=== PATIENT | male | born 1955 | race Caucasian/White ===

== ENCOUNTER → 2016-10-12 | Outpatient (CLI) | payer BC ==
[~2016-10-12] MED LIST: ASP81EC PO; ATO40T PO; CAR3125T PO; CLOP75TA28 PO; FURO40TA4 PO; LEVO25TA6 PO; OMEP20CA5 PO
== END | disposition home or self-care (01) ==
LOC: XYW 09:53
PROVIDERS: ATTEND Internal Medicine
DX: I50.9 Heart failure, unspecified (principal)
CPT/HCPCS: 93306

== ENCOUNTER → 2016-11-30 | Outpatient (CLI) | payer BC | END | disposition home or self-care (01) | LOC: XY 10:28 | PROVIDERS: ATTEND Internal Medicine Cardiovascular Disease | DX: Z13.6 Encounter for screening for cardiovascular disorders (principal) | CPT/HCPCS: 78452; 93017; A9500 ==

== ENCOUNTER → 2016-12-19 | Outpatient (CLI) | payer BC ==
[2016-12-19 13:48] LABS: Basophils # (auto) 0 uL; Basophils % (auto) 0.4 % (0.0-2.0); Eosinophils # (auto) 0.2 uL; Eosinophils % (auto) 2.7 % (0.0-7.0); Hemoglobin 15.8 g/dL (13.5-17.5); Lymphocytes # (auto) 2.2 uL; Mean Corpuscular Hemoglobin 31.7 pg (28.0-32.0); Mean Corpuscular Hgb Conc. 32.9 g/dL (32.0-36.0); Mean Corpuscular Volume 96.4 fL (80.0-100.0); Mean Platelet Volume 8.3 fL (7.4-10.4); Monocytes # (auto) 0.9 uL; Monocytes % (auto) 9.9 % (0.0-12.0); Neutrophils # (auto) 5.4 uL; Platelet Count (auto) 292 10^3/uL (140-450); Red Cell Distribution Width 13.8 % (11.6-16.0); White Blood Cell 8.7 10^3/uL (4.4-10.8)
[2016-12-19 14:05] LABS: INR 1.1 (0.9-1.15); Partial Thromboplastin Time 30.2 sec (22.64-33.71); Prothrombin Time 11.3 sec (9.37-12.3)
[2016-12-19 14:11] LABS: Albumin 3.7 g/dL (3.4-5.0); BUN/Creatinine Ratio 11.5; Calcium 8.4 mg/dL (8.5-10.1); Potassium 4.6 mmol/L (3.5-5.1)
[2016-12-19 14:14] LABS: Bilirubin, Total 1.1 mg/dL (0.2-1.0); Total Protein 7.5 g/dL (6.4-8.2)
== END | disposition home or self-care (01) ==
LOC: LAB 13:25
PROVIDERS: ATTEND Internal Medicine Cardiovascular Disease
DX: Z01.810 Encounter for preprocedural cardiovascular examination (principal); I25.10 Atherosclerotic heart disease of native coronary artery without angina pectoris
CPT/HCPCS: 36415; 80053; 85025; 85610; 85730

== ENCOUNTER 2016-12-20 11:11 | Inpatient (IN) | payer BC ==
[~2016-12-20] VITALS: Ht 180.3 cm; Wt 77.1 kg
[~2016-12-20 11:11] MED LIST changes: +IODIXANOL 320MG/ML 100ML BTL IV ONE; +LIDOCAINE 2%HCL (LOCAL ANESTH.) INJ 20ML MDV ONE; +PANTOPRAZOLE 40 MG TAB PO SCH
[2016-12-20] MEDS ORDERED: MIDAZOLAM HCL 1MG/1ML-2 ML VIAL ONE (13:07)
[2016-12-20] MEDS ORDERED: SODIUM CHL 0.9% 50 ML ONE (13:07)
[2016-12-20] MEDS ORDERED: fentaNYL CITRATE 100 MCG/2 ML VL ONE (13:07)
[2016-12-20] MEDS ORDERED: ANGIOMAX 250 MG VIAL IV ONE (13:07)
[2016-12-20] MEDS ORDERED: diphenhdrAMINE HCL 50 MG/1 ML VL ONE (13:45)
[2016-12-20] MEDS ORDERED: methylPREDNISolone SOD SUCC 125 MG/2 ML VL ONE (13:47)
[2016-12-20] MEDS ORDERED: IODIXANOL 320MG/ML 100ML BTL IV ONE (14:26)
[2016-12-20] MEDS ORDERED: HYDROmorphone HCL 2 MG/ML VL ONE (14:39)
[2016-12-20] MEDS ORDERED: SODIUM CHLORIDE 0.9% 1,000 ML IV SCH (14:52)
[2016-12-20] MEDS ORDERED: DEXTROSE (50%) 50ML SYRG IV PRN (15:00)
[2016-12-20] MEDS ORDERED: HYDROcodone-ACET 5/325MG TAB PO PRN (15:00)
[2016-12-20] MEDS ORDERED: MORPHINE SULF INJ 2 MG/ML SYRINGE 1ML IV PRN (15:00)
[2016-12-20] MEDS ORDERED: NITROGLYCERIN 0.4 MG SL TAB SL PRN ×2 (15:00)
[2016-12-20] MEDS ORDERED: ONDANSETRON HCL 4 MG/2 ML VIAL IV PRN (15:00)
[2016-12-20] MEDS ORDERED: LEVOTHYROXINE SODIUM 25 MCG TAB PO ONE (15:30)
[2016-12-20] MEDS ORDERED: CARVEDILOL 3.125 MG TAB PO ONE (15:30)
[2016-12-20] MEDS ORDERED: ASPirin-EC 81 mg tab PO ONE (15:30)
[2016-12-20] MEDS ORDERED: CLOPIDOGREL BISULFATE 75 MG TAB PO ONE (15:30)
[2016-12-20] MEDS ORDERED: FUROSEMIDE 40 MG TAB PO ONE (15:30)
[2016-12-20] MEDS: ACCU-CHEK COMFORT CURVE STRIP VI SCH ×2 (17:04→21:47)
[2016-12-20] MEDS: InsuLIN REG 1unit/0.01ml Soln (100units/ml) SC SCH (17:09)
[2016-12-20 18:41] VITALS: BP 135/78
[2016-12-20] MEDS ORDERED: HYDROcodone-ACET 10/325MG TAB PO PRN (21:15)
[2016-12-20] MEDS: CARVEDILOL 3.125 MG TAB PO SCH (21:47)
[2016-12-20 22:00] VITALS: BP 128/75
[2016-12-20] MEDS ORDERED: InsuLIN REG 1unit/0.01ml Soln (100units/ml) SC SCH (22:00)
[2016-12-20] MEDS ORDERED: PANTOPRAZOLE 40 MG TAB PO SCH (22:00)
[2016-12-20] MEDS ORDERED: ATORVASTATIN 20 MG TAB PO SCH (22:00)
[2016-12-20] MEDS: INSULIN DETEMIR(LEVEMIR) 1unit/0.01ml Soln (100units/ml) SC SCH (22:05)
[2016-12-21 05:30] VITALS: BP 106/68
[2016-12-21 06:48] LABS: Potassium 3.4 mmol/L (3.5-5.1)
[2016-12-21] MEDS: InsuLIN REG 1unit/0.01ml Soln (100units/ml) SC SCH (06:51)
[2016-12-21] MEDS: ACCU-CHEK COMFORT CURVE STRIP VI SCH (06:51)
[2016-12-21 07:00] LABS: BUN/Creatinine Ratio 18.6; Calcium 8.6 mg/dL (8.5-10.1)
[2016-12-21 08:15] LABS: Basophils # (auto) 0 uL; Basophils % (auto) 0.4 % (0.0-2.0); Eosinophils # (auto) 0.3 uL; Eosinophils % (auto) 2.9 % (0.0-7.0); Hemoglobin 14.5 g/dL (13.5-17.5); Lymphocytes # (auto) 3.2 uL; Lymphocytes % (auto) 30.4 % (10.0-50.0); Mean Corpuscular Hemoglobin 31.5 pg (28.0-32.0); Mean Corpuscular Hgb Conc. 32.9 g/dL (32.0-36.0); Mean Corpuscular Volume 95.7 fL (80.0-100.0); Mean Platelet Volume 8.7 fL (7.4-10.4); Monocytes # (auto) 1.2 uL; Monocytes % (auto) 11.8 % (0.0-12.0); Neutrophils # (auto) 5.7 uL; Neutrophils % (auto) 54.5 % (37.0-80.0); Platelet Count (auto) 271 10^3/uL (140-450); Red Cell Distribution Width 13.6 % (11.6-16.0); White Blood Cell 10.5 10^3/uL (4.4-10.8)
[2016-12-21 09:00] VITALS: BP 119/74
[2016-12-21] MEDS ORDERED: PATIENTS OWN MEDICATION (Atorvastatin Calcium (Lipitor) 1 TAB) PO SCH ×2 (10:00)
[2016-12-21] MEDS ORDERED: OMEPRAZOLE 20MG/10ML ORAL SUSP PO SCH (10:00)
[2016-12-21] MEDS ORDERED: LEVOTHYROXINE SODIUM 25 MCG TAB PO SCH (10:00)
[2016-12-21] MEDS ORDERED: FUROSEMIDE 40 MG TAB PO SCH (10:00)
[2016-12-21] MEDS ORDERED: CLOPIDOGREL BISULFATE 75 MG TAB PO SCH (10:00)
[2016-12-21] MEDS ORDERED: ASPirin-EC 81 mg tab PO SCH (10:00)
[2016-12-21] MEDS: INSULIN DETEMIR(LEVEMIR) 1unit/0.01ml Soln (100units/ml) SC SCH (10:00)
[2016-12-21] MEDS: CARVEDILOL 3.125 MG TAB PO SCH (11:07)
[2016-12-21 12:45] VITALS: BP 123/72
[2016-12-21] MEDS ORDERED: POTASSIUM CHL 10% (20 MEQ/15ML) ORAL SOLN PO ONE (13:15)
[2016-12-21 13:44] VITALS: BP 119/74
[2016-12-21 14:13] VITALS: BP 123/72
== END 2016-12-21 15:00 | disposition home or self-care (01) | DRG 251 ==
LOC: CATH 11:11 → EAST 11:12 → TELE-WESTW 18:08
PROVIDERS: ADMIT Internal Medicine Cardiovascular Disease; ATTEND Internal Medicine
PROC: 02703ZZ Dilation of Coronary Artery, One Artery, Percutaneous Approach (ICD-10-PCS; principal; 2016-12-20)
PROC: 4A023N7 Measurement of Cardiac Sampling and Pressure, Left Heart, Percutaneous Approach (ICD-10-PCS; 2016-12-20)
PROC: B2111ZZ Fluoroscopy of Multiple Coronary Arteries using Low Osmolar Contrast (ICD-10-PCS; 2016-12-20)
PROC: B41F1ZZ Fluoroscopy of Right Lower Extremity Arteries using Low Osmolar Contrast (ICD-10-PCS; 2016-12-20)
DX: T82.855A Stenosis of coronary artery stent, initial encounter (principal); E03.9 Hypothyroidism, unspecified; E87.6 Hypokalemia; E11.9 Type 2 diabetes mellitus without complications; I25.10 Atherosclerotic heart disease of native coronary artery without angina pectoris; Y83.1 Surgical operation with implant of artificial internal device as the cause of abnormal reaction of the patient, or of later complication, without mention of misadventure at the time of the procedure
CPT/HCPCS: 36415; 80048; 82962; 83036; 85025; 92920; 93458; J1815; J2250; Q9967

== ENCOUNTER 2017-04-28 08:13 | Day surgery (SDC) | payer BC ==
[2017-04-25 13:32] LABS: Urine RBC None Seen /hpf (0 - 3)
[2017-04-25 13:44] LABS: Urine Bilirubin Negative (Negative); Urine Blood Negative /uL (Negative); Urine Color Yellow (Yellow); Urine Ketone Negative (Negative); Urine Nitrite Negative (Negative); Urine Urobilinogen Normal (Negative)
[2017-04-25 13:46] LABS: Basophils # (auto) 0 uL; Basophils % (auto) 0.5 % (0.0-2.0); CONDITION Y; Eosinophils # (auto) 0.2 uL; Eosinophils % (auto) 2.6 % (0.0-7.0); Hematocrit 48.2 % (41.0-53.0); Lymphocytes # (auto) 2.5 uL; Lymphocytes % (auto) 30.8 % (10.0-50.0); Mean Corpuscular Hemoglobin 32.2 pg (28.0-32.0); Mean Corpuscular Hgb Conc. 33.3 g/dL (32.0-36.0); Mean Corpuscular Volume 96.5 fL (80.0-100.0); Mean Platelet Volume 8.6 fL (7.4-10.4); Monocytes # (auto) 1.1 uL; Monocytes % (auto) 13.2 % (0.0-12.0); Neutrophils # (auto) 4.3 uL; Neutrophils % (auto) 52.9 % (37.0-80.0); Platelet Count (auto) 323 10^3/uL (140-450); Red Cell Distribution Width 13.5 % (11.6-16.0); Urine Glucose 4+ mg/dL (Normal); White Blood Cell 8.2 10^3/uL (4.4-10.8)
[2017-04-25 13:57] LABS: Partial Thromboplastin Time 33.7 sec (22.64-33.71); Prothrombin Time 10.9 sec (9.37-12.3)
[2017-04-25 14:19] LABS: Albumin 3.8 g/dL (3.4-5.0); BUN/Creatinine Ratio 13.3; Bilirubin, Total 0.6 mg/dL (0.2-1.0); Potassium 3.9 mmol/L (3.5-5.1); Total Protein 7.7 g/dL (6.4-8.2)
[~2017-04-28 08:13] MED LIST changes: -IODIXANOL 320MG/ML 100ML BTL IV ONE; -LIDOCAINE 2%HCL (LOCAL ANESTH.) INJ 20ML MDV ONE; -OMEP20CA5 PO; +OMEP20CA74 PO; -PANTOPRAZOLE 40 MG TAB PO SCH
[2017-04-28] MEDS ORDERED: MIDAZOLAM HCL 1MG/1ML-2 ML VIAL ONE (09:41)
[2017-04-28] MEDS ORDERED: ROCURONIUM 10MG/ML 10ML VIAL IV ONE (10:32)
[2017-04-28] MEDS ORDERED: fentaNYL CITRATE 100 MCG/2 ML VL ONE (10:35)
[2017-04-28] MEDS ORDERED: PROPOFOL 10 MG/ML 20 ML IV ONE (10:36)
[2017-04-28 12:15] VITALS: BP 151/86
[2017-04-28] MEDS ORDERED: hydrALAZINE HCL 20 MG/ML VL IV PRN (12:15)
[2017-04-28] MEDS ORDERED: ePHEDrine SULFATE 50 MG/ML AMP IV PRN (12:15)
[2017-04-28] MEDS ORDERED: ONDANSETRON HCL 4 MG/2 ML VIAL IV ONE (12:15)
[2017-04-28] MEDS: HYDROmorphone HCL 2 MG/ML VL IV PRN ×5 (12:20→13:02)
== END 2017-04-28 13:15 | disposition home or self-care (01) ==
LOC: SUR 08:13
PROVIDERS: ATTEND Orthopaedic Surgery
DX: S46.012A Strain of muscle(s) and tendon(s) of the rotator cuff of left shoulder, initial encounter (principal); M75.02 Adhesive capsulitis of left shoulder; R22.32 Localized swelling, mass and lump, left upper limb; X58.XXXA Exposure to other specified factors, initial encounter; Y93.89 Activity, other specified; Y92.89 Other specified places as the place of occurrence of the external cause; Y99.8 Other external cause status; M13.812 Other specified arthritis, left shoulder; E11.9 Type 2 diabetes mellitus without complications; I50.9 Heart failure, unspecified; I20.9 Angina pectoris, unspecified; J40 Bronchitis, not specified as acute or chronic; F17.210 Nicotine dependence, cigarettes, uncomplicated
CPT/HCPCS: 23180; 23412; 23415; 36415; 80053; 81001; 82962; 85025; 85610; 85730; J1170; J2250; J2704; J3010

== ENCOUNTER 2017-05-01 20:40 | Emergency (ER) | payer BC ==
[~2017-05-01] VITALS: Ht 180.3 cm; Wt 82.6 kg
[2017-05-01 21:54] LABS: Basophils # (auto) 0.1 uL; Basophils % (auto) 0.6 % (0.0-2.0); CONDITION Y; Eosinophils # (auto) 0.3 uL; Eosinophils % (auto) 3.1 % (0.0-7.0); Hematocrit 46.7 % (41.0-53.0); Hemoglobin 15.9 g/dL (13.5-17.5); Lymphocytes # (auto) 2.7 uL; Lymphocytes % (auto) 25.8 % (10.0-50.0); Mean Corpuscular Hemoglobin 32.8 pg (28.0-32.0); Mean Corpuscular Volume 96.2 fL (80.0-100.0); Mean Platelet Volume 8.1 fL (7.4-10.4); Monocytes # (auto) 1.3 uL; Monocytes % (auto) 12.7 % (0.0-12.0); Neutrophils # (auto) 6.1 uL; Neutrophils % (auto) 57.8 % (37.0-80.0); Platelet Count (auto) 330 10^3/uL (140-450); Red Cell Distribution Width 13.5 % (11.6-16.0); White Blood Cell 10.5 10^3/uL (4.4-10.8)
[2017-05-01 22:20] LABS: Albumin 3.5 g/dL (3.4-5.0); BUN/Creatinine Ratio 13.3; Bilirubin, Total 0.8 mg/dL (0.2-1.0); Calcium 8.6 mg/dL (8.5-10.1); Total Protein 8.1 g/dL (6.4-8.2)
[2017-05-01 22:29] LABS: Potassium 3.6 mmol/L (3.5-5.1)
[2017-05-02] MEDS ORDERED: HYDROmorphone HCL 2 MG/ML VL ONE (01:48)
[2017-05-02] MEDS: HYDROmorphone HCL 2 MG/ML VL IV ONE ×2 (01:54→02:03)
[2017-05-02 02:05] VITALS: BP 138/104
== END 2017-05-02 03:54 | disposition home or self-care (01) ==
LOC: ER 20:43
DX: S46.912A Strain of unspecified muscle, fascia and tendon at shoulder and upper arm level, left arm, initial encounter (principal); Z88.8 Allergy status to other drugs, medicaments and biological substances; Z79.899 Other long term (current) drug therapy; Z79.82 Long term (current) use of aspirin; I25.10 Atherosclerotic heart disease of native coronary artery without angina pectoris; N50.9 Disorder of male genital organs, unspecified; E11.9 Type 2 diabetes mellitus without complications; I11.0 Hypertensive heart disease with heart failure; I25.2 Old myocardial infarction; E07.9 Disorder of thyroid, unspecified; X58.XXXA Exposure to other specified factors, initial encounter; Y93.89 Activity, other specified; Y92.89 Other specified places as the place of occurrence of the external cause; Y99.8 Other external cause status
CPT/HCPCS: 36415; 73200; 80053; 82962; 85025; 96374; 99285; J1170

== ENCOUNTER 2018-02-25 19:41 | Inpatient (IN) | payer BC, OTHER ==
[~2018-02-25] VITALS: Ht 180.3 cm; Wt 72.4 kg
[2018-02-25 20:23] LABS: Urine Bacteria NONE SEEN /hpf (None Seen); Urine Blood Negative /uL (Negative); Urine Specific Gravity 1.044 (1.001-1.035); Urine WBC 1 /hpf (0 - 3)
[2018-02-25] MEDS ORDERED: SODIUM CHLORIDE 0.9% 1,000 ML IVB ONE (21:02)
[2018-02-25] MEDS ORDERED: ONDANSETRON HCL 4 MG/2 ML VIAL ONE (21:04)
[2018-02-25] MEDS ORDERED: PANTOPRAZOLE 40 MG/10 ML VIAL IV ONE ×2 (21:04→21:15)
[2018-02-25 21:08] LABS: INR 1.11 (0.9-1.15); Partial Thromboplastin Time 35.5 sec (23.78-33.04); Prothrombin Time 11.8 sec (9.27-12.13)
[2018-02-25 21:14] LABS: Red Cell Distribution Width 13.7 % (11.8-14.3); White Blood Cell 8.5 10^3/uL (4.4-10.8)
[2018-02-25] MEDS ORDERED: ONDANSETRON HCL 4 MG/2 ML VIAL IV ONE (21:15)
[2018-02-25 21:16] LABS: Hemoglobin 19.3 g/dL (13.5-17.5); Mean Corpuscular Hemoglobin 32.1 pg (28.0-32.0); Mean Corpuscular Hgb Conc. 34.1 g/dL (32.0-36.0); Mean Corpuscular Volume 94.2 fL (80.0-100.0); Platelet Count (auto) 247 10^3/uL (140-450); Red Blood Cells 6.02 10^6/uL (4.5-5.90)
[2018-02-25 21:18] LABS: Alanine Aminotransferase 42 U/L (16-61); Albumin 3.9 g/dL (3.4-5.0); Alkaline Phosphatase 100 U/L (45-117); Anion Gap 8 (5-15); Aspartate Aminotransferase 31 U/L (15-37); BUN/Creatinine Ratio 14.5; Bilirubin, Total 0.6 mg/dL (0.2-1.0); Blood Urea Nitrogen 18 mg/dL (7-18); Calcium 8.9 mg/dL (8.5-10.1); Carbon Dioxide 29 mmol/L (21-32); Chloride 101 mmol/L (98-107); GFR African American 76 mL/min; GFR Non-African American 63 mL/min; Glucose 216 mg/dL (74-106); Magnesium 2.7 mg/dL (1.6-2.6); Potassium 3.4 mmol/L (3.5-5.1); Sodium 138 mmol/L (136-145); Total Protein 8.5 g/dL (6.4-8.2)
[2018-02-25 21:21] LABS: Hematocrit 56.7 % (41.0-53.0)
[2018-02-25 21:22] LABS: Band Neutrophils % (manual) 0; Basophils % (manual) 0 (0.0-2.0); Blast Cells 0; Eosinophils % (manual) 0 (0-7); Metamyelocytes % 0; Myelocytes % 0; Promyelocytes % 0; Reactive Lymphocytes 0
[2018-02-25 21:23] LABS: Amylase 44 U/L (25-115); Lipase 139 U/L (73-393)
[2018-02-25 21:39] LABS: Lymphocytes % (manual) 28 (10.0-50.0); Monocytes % (manual) 10 (0-12)
[2018-02-25] MEDS ORDERED: cefTRIAXone 1GM/10ml IVPUSH 10 ML IV ONE (22:00)
[2018-02-25] MEDS ORDERED: ACETAMINOPHEN 325 MG TAB PO PRN (22:00)
[2018-02-25] MEDS ORDERED: TEMAZEPAM 15 MG CAP PO PRN (22:00)
[2018-02-25] MEDS ORDERED: HYDROcodone-ACET 5/325MG TAB PO PRN (22:00)
[2018-02-25] MEDS ORDERED: ONDANSETRON HCL 4 MG/2 ML VIAL IV PRN (22:00)
[2018-02-25] MEDS ORDERED: DEXTROSE (50%) 50ML SYRG IV PRN (22:00)
[2018-02-25] MEDS: SODIUM CHLORIDE 0.9% 1,000 ML IV SCH (22:27)
[2018-02-25] MEDS: CARVEDILOL 3.125 MG TAB PO SCH (22:34)
[2018-02-25] MEDS: ATORVASTATIN 20 MG TAB PO SCH (22:35)
[2018-02-25 23:47] VITALS: BP 124/73
[2018-02-25] MEDS: ACCU-CHEK COMFORT CURVE STRIP VI SCH (23:51)
[2018-02-25] MEDS: InsuLIN REG 1unit/0.01ml Soln (100units/ml) SC SCH (23:52)
[2018-02-26] VITALS (7 sets, daily range): BP systolic 104–127; BP diastolic 62–74
[2018-02-26] MEDS: InsuLIN REG 1unit/0.01ml Soln (100units/ml) SC SCH ×3 (06:32→18:08)
[2018-02-26] MEDS: ACCU-CHEK COMFORT CURVE STRIP VI SCH ×3 (06:32→17:30)
[2018-02-26] MEDS: LEVOTHYROXINE SODIUM 25 MCG TAB PO SCH (06:32)
[2018-02-26 06:36] LABS: Hematocrit 45.7 % (41.0-53.0); Hemoglobin 15.7 g/dL (13.5-17.5); Mean Corpuscular Hemoglobin 32.5 pg (28.0-32.0); Mean Corpuscular Hgb Conc. 34.2 g/dL (32.0-36.0); Mean Corpuscular Volume 94.8 fL (80.0-100.0); Platelet Count (auto) 217 10^3/uL (140-450); Red Blood Cells 4.82 10^6/uL (4.5-5.90); Red Cell Distribution Width 13.6 % (11.8-14.3); White Blood Cell 8.8 10^3/uL (4.4-10.8)
[2018-02-26 06:37] LABS: Band Neutrophils % (manual) 0; Basophils % (manual) 0 (0.0-2.0); Blast Cells 0; Metamyelocytes % 0; Myelocytes % 0; Promyelocytes % 0; Reactive Lymphocytes 0
[2018-02-26 07:00] LABS: Albumin 2.8 g/dL (3.4-5.0); BUN/Creatinine Ratio 19.2; Bilirubin, Total 0.4 mg/dL (0.2-1.0); Calcium 7.6 mg/dL (8.5-10.1); Potassium 3.2 mmol/L (3.5-5.1); Total Protein 6.1 g/dL (6.4-8.2)
[2018-02-26 07:31] LABS: Eosinophils % (manual) 2 (0-7); Lymphocytes % (manual) 22 (10.0-50.0); Monocytes % (manual) 19 (0-12)
[2018-02-26] MEDS: SODIUM CHLORIDE 0.9% 1,000 ML IV SCH (11:20)
[2018-02-26] MEDS: PANTOPRAZOLE 40 MG TAB PO SCH (11:45)
[2018-02-26] MEDS: CARVEDILOL 3.125 MG TAB PO SCH ×2 (11:46→22:39)
[2018-02-26] MEDS: CLOPIDOGREL BISULFATE 75 MG TAB PO SCH (11:46)
[2018-02-26] MEDS: ENOXAPARIN SOD 40 MG/0.4 ML SYRINGE SC SCH (17:23)
[2018-02-26] MEDS ORDERED: cefTRIAXone 1GM/10ml IVPUSH 10 ML IV SCH (22:00)
[2018-02-26] MEDS: ATORVASTATIN 20 MG TAB PO SCH (22:37)
[2018-02-27] MEDS: SODIUM CHLORIDE 0.9% 1,000 ML IV SCH ×2 (00:40→14:00)
[2018-02-27 05:50] VITALS: BP 126/69
[2018-02-27] MEDS: InsuLIN REG 1unit/0.01ml Soln (100units/ml) SC SCH ×3 (06:27→12:00)
[2018-02-27] MEDS: LEVOTHYROXINE SODIUM 25 MCG TAB PO SCH (06:27)
[2018-02-27] MEDS: ACCU-CHEK COMFORT CURVE STRIP VI SCH ×3 (06:27→12:07)
[2018-02-27 09:00] VITALS: BP 117/73
[2018-02-27] MEDS: PANTOPRAZOLE 40 MG TAB PO SCH (09:57)
[2018-02-27] MEDS: CARVEDILOL 3.125 MG TAB PO SCH (09:58)
[2018-02-27] MEDS: ENOXAPARIN SOD 40 MG/0.4 ML SYRINGE SC SCH (10:00)
[2018-02-27] MEDS: CLOPIDOGREL BISULFATE 75 MG TAB PO SCH (10:00)
[2018-02-27] MEDS ORDERED: IOHEXOL 300 MG/ML 100ML BOTTLE IJ ONE (10:36)
[2018-02-27] MEDS ORDERED: GASTROGRAFIN 30 ML SOL ONE (10:46)
[2018-02-27 13:00] VITALS: BP 117/84
[2018-02-27 15:49] VITALS: BP 117/84
== END 2018-02-27 16:20 | disposition home or self-care (01) | DRG 446 ==
LOC: ER 19:41 → CENTRAL 19:42
PROVIDERS: ADMIT Nurse Practitioner; ATTEND Family Medicine
DX: K80.20 Calculus of gallbladder without cholecystitis without obstruction (principal); I11.0 Hypertensive heart disease with heart failure; E11.65 Type 2 diabetes mellitus with hyperglycemia; I50.9 Heart failure, unspecified; E86.0 Dehydration; E03.9 Hypothyroidism, unspecified; E78.00 Pure hypercholesterolemia, unspecified; G47.00 Insomnia, unspecified; R19.7 Diarrhea, unspecified; R10.9 Unspecified abdominal pain; E78.5 Hyperlipidemia, unspecified; I25.10 Atherosclerotic heart disease of native coronary artery without angina pectoris; Z82.49 Family history of ischemic heart disease and other diseases of the circulatory system; Z86.73 Personal history of transient ischemic attack (TIA), and cerebral infarction without residual deficits; Z95.5 Presence of coronary angioplasty implant and graft; Z90.81 Acquired absence of spleen; Z88.8 Allergy status to other drugs, medicaments and biological substances; Z79.899 Other long term (current) drug therapy; I25.2 Old myocardial infarction; Z87.81 Personal history of (healed) traumatic fracture
CPT/HCPCS: 36415; 70450; 71046; 71260; 74176; 74177; 76705; 80053; 81001; 82150; 82962; 83036; 83690; 83735; 83880; 84484; 85007; 85027; 85610; 85730; 94761; 96361; 96374; 96375; C9113; J1815; J2405

== ENCOUNTER → 2018-04-17 | Outpatient (CLI) | payer OTHER ==
[~2018-04-17] VITALS: Ht 177.8 cm; Wt 73.0 kg
[~2018-04-17] MED LIST changes: +ADENOSINE 61 MG in GIVE UN-DILUTED 0 ML IV ONE; +CANA1TAB8 PO; -FURO40TA4 PO; +LOSA25TA9 PO
[2018-04-17 12:43] VITALS: BP 122/80
== END | disposition home or self-care (01) ==
LOC: XY 09:33
PROVIDERS: ATTEND Internal Medicine Cardiovascular Disease
DX: Z01.810 Encounter for preprocedural cardiovascular examination (principal); Z88.9 Allergy status to unspecified drugs, medicaments and biological substances; Z88.8 Allergy status to other drugs, medicaments and biological substances
CPT/HCPCS: 78452; 93017; A9500; J0153

== ENCOUNTER 2018-05-09 08:09 | Inpatient (IN) | payer OTHER ==
[2018-05-07 12:15] LABS: Urine Bacteria NONE SEEN /hpf (None Seen); Urine Blood Negative /uL (Negative); Urine Specific Gravity 1.036 (1.001-1.035); Urine WBC <1 /hpf (0 - 3)
[2018-05-07 12:19] LABS: Basophils # (auto) 0.1 uL; Basophils % (auto) 1.2 % (0.0-2.0); Eosinophils # (auto) 0.2 uL; Eosinophils % (auto) 2.2 % (0.0-7.0); Hematocrit 50.7 % (41.0-53.0); Hemoglobin 17.1 g/dL (13.5-17.5); Lymphocytes # (auto) 2.7 uL; Lymphocytes % (auto) 28.1 % (10.0-50.0); Mean Corpuscular Hemoglobin 32.4 pg (28.0-32.0); Mean Corpuscular Hgb Conc. 33.8 g/dL (32.0-36.0); Mean Corpuscular Volume 95.7 fL (80.0-100.0); Monocytes # (auto) 1.3 uL; Monocytes % (auto) 13.6 % (0.0-12.0); Neutrophils # (auto) 5.2 uL; Neutrophils % (auto) 54.9 % (37.0-80.0); Nucleated Red Blood Cells % 0.1 %; Platelet Count (auto) 313 10^3/uL (140-450); Red Cell Distribution Width 13.9 % (11.8-14.3); White Blood Cell 9.5 10^3/uL (4.4-10.8)
[2018-05-07 12:28] LABS: INR 0.99 (0.9-1.15); Partial Thromboplastin Time 33.8 sec (23.78-33.04); Prothrombin Time 10.6 sec (9.27-12.13)
[2018-05-07 12:58] LABS: Albumin 4.2 g/dL (3.4-5.0); BUN/Creatinine Ratio 17.9; Bilirubin, Total 0.7 mg/dL (0.2-1.0); Calcium 9.2 mg/dL (8.5-10.1); Potassium 4.2 mmol/L (3.5-5.1); Total Protein 8.7 g/dL (6.4-8.2)
[~2018-05-09] VITALS: Ht 180.3 cm; Wt 86.9 kg
[~2018-05-09 08:09] MED LIST changes: -ADENOSINE 61 MG in GIVE UN-DILUTED 0 ML IV ONE
[2018-05-09] MEDS ORDERED: ceFAZolin 1GM/50ML 50 ML IV ONE (08:25)
[2018-05-09] MEDS ORDERED: ACCU-CHEK COMFORT CURVE STRIP VI ONE (10:15)
[2018-05-09] MEDS ORDERED: METOCLOPRAMIDE HCL 5MG/ml INJ 2ml VIAL IV ONE (10:15)
[2018-05-09] MEDS ORDERED: HYDROmorphone HCL 2 MG/ML VL IV PRN (10:15)
[2018-05-09] MEDS ORDERED: fentaNYL CITRATE 100 MCG/2 ML VL ONE (10:36)
[2018-05-09] MEDS ORDERED: fentaNYL CITRATE 10 ML ONE (10:36)
[2018-05-09] MEDS ORDERED: HYDROmorphone HCL 2 MG/ML VL ONE (10:36)
[2018-05-09] MEDS ORDERED: PROPOFOL 10 MG/ML 20 ML IV ONE (10:37)
[2018-05-09] MEDS ORDERED: ONDANSETRON HCL 4 MG/2 ML VIAL ONE (10:37)
[2018-05-09] MEDS ORDERED: ROCURONIUM 10MG/ML 10ML VIAL IV ONE (10:37)
[2018-05-09] MEDS ORDERED: MIDAZOLAM HCL 1MG/1ML-2 ML VIAL ONE (10:37)
[2018-05-09] MEDS ORDERED: DEXTROSE (50%) 50ML SYRG IV PRN (14:30)
[2018-05-09] MEDS ORDERED: ONDANSETRON HCL 4 MG/2 ML VIAL IV PRN (14:30)
[2018-05-09 14:42] VITALS: BP 136/80
[2018-05-09] MEDS: MORPHINE SULF INJ 2 MG/ML SYRINGE 1ML IV PRN ×2 (14:48→20:22)
[2018-05-09] MEDS: SODIUM CHLORIDE 0.9% 1,000 ML IV SCH (14:49)
[2018-05-09] MEDS ORDERED: PNEUMOCOCCAL VACC POLYS 25 MCG/0.5 ML VIAL IM ONE (16:30)
[2018-05-09 16:40] VITALS: BP 140/78
[2018-05-09] MEDS: ACCU-CHEK COMFORT CURVE STRIP VI SCH ×2 (18:07→23:11)
[2018-05-09] MEDS: InsuLIN REG 1unit/0.01ml Soln (100units/ml) SC SCH ×2 (18:08→23:35)
[2018-05-09 20:00] VITALS: BP 126/80
[2018-05-09 22:00] VITALS: BP 126/80
[2018-05-10] MEDS: SODIUM CHLORIDE 0.9% 1,000 ML IV SCH (04:34)
[2018-05-10] MEDS: MORPHINE SULF INJ 2 MG/ML SYRINGE 1ML IV PRN ×3 (04:34→20:19)
[2018-05-10 05:00] VITALS: BP 121/69
[2018-05-10 05:52] LABS: Basophils # (auto) 0.1 uL; Basophils % (auto) 0.5 % (0.0-2.0); Eosinophils # (auto) 0 uL; Lymphocytes # (auto) 1.8 uL; Lymphocytes % (auto) 8.4 % (10.0-50.0); Mean Corpuscular Hemoglobin 32.7 pg (28.0-32.0); Mean Corpuscular Volume 96.1 fL (80.0-100.0); Monocytes # (auto) 1.9 uL; Monocytes % (auto) 9.1 % (0.0-12.0); Neutrophils # (auto) 17.5 uL; Nucleated Red Blood Cells % 0.1 %; Platelet Count (auto) 270 10^3/uL (140-450); Red Blood Cells 4.58 10^6/uL (4.5-5.90); Red Cell Distribution Width 14.3 % (11.8-14.3); White Blood Cell 21.3 10^3/uL (4.4-10.8)
[2018-05-10] MEDS: ACCU-CHEK COMFORT CURVE STRIP VI SCH ×3 (06:06→18:00)
[2018-05-10 06:08] LABS: Calcium 8.2 mg/dL (8.5-10.1); Potassium 4.2 mmol/L (3.5-5.1)
[2018-05-10 06:09] LABS: BUN/Creatinine Ratio 15.7
[2018-05-10 06:13] LABS: Bilirubin, Total 1.5 mg/dL (0.2-1.0); Total Protein 6.4 g/dL (6.4-8.2)
[2018-05-10] MEDS: InsuLIN REG 1unit/0.01ml Soln (100units/ml) SC SCH ×3 (06:49→18:00)
[2018-05-10 08:00] VITALS: BP 126/80
[2018-05-10 09:00] VITALS: BP 112/69
[2018-05-10] MEDS: ASPirin 81 mg TAB PO SCH (09:33)
[2018-05-10] MEDS: HYDROcodone-ACET 5/325MG TAB PO PRN ×2 (09:33→15:52)
[2018-05-10] MEDS: PANTOPRAZOLE 40 MG/10 ML VIAL IV SCH (09:34)
[2018-05-10] MEDS ORDERED: ASPirin 81 mg TAB PO SCH (10:00)
[2018-05-10 17:00] VITALS: BP 123/79
[2018-05-10 20:00] VITALS: BP 129/78
[2018-05-10 20:58] VITALS: BP 129/78
[2018-05-11] MEDS: MORPHINE SULF INJ 2 MG/ML SYRINGE 1ML IV PRN ×4 (00:59→21:49)
[2018-05-11] MEDS: HYDROcodone-ACET 5/325MG TAB PO PRN (04:34)
[2018-05-11 05:01] VITALS: BP 146/72
[2018-05-11 05:37] LABS: Basophils # (auto) 0.2 uL; Basophils % (auto) 1.2 % (0.0-2.0); Eosinophils # (auto) 0.1 uL; Eosinophils % (auto) 0.7 % (0.0-7.0); Hematocrit 44.4 % (41.0-53.0); Lymphocytes # (auto) 2.9 uL; Lymphocytes % (auto) 17.7 % (10.0-50.0); Mean Corpuscular Hemoglobin 32.6 pg (28.0-32.0); Mean Corpuscular Hgb Conc. 33.7 g/dL (32.0-36.0); Mean Corpuscular Volume 96.7 fL (80.0-100.0); Monocytes # (auto) 1.8 uL; Neutrophils # (auto) 11.4 uL; Neutrophils % (auto) 69.4 % (37.0-80.0); Nucleated Red Blood Cells % 0.1 %; Platelet Count (auto) 270 10^3/uL (140-450); Red Blood Cells 4.59 10^6/uL (4.5-5.90); Red Cell Distribution Width 14.4 % (11.8-14.3); White Blood Cell 16.4 10^3/uL (4.4-10.8)
[2018-05-11 05:45] LABS: Potassium 3.7 mmol/L (3.5-5.1)
[2018-05-11 05:50] LABS: BUN/Creatinine Ratio 12.2; Calcium 7.9 mg/dL (8.5-10.1)
[2018-05-11 05:51] LABS: Bilirubin, Total 2.1 mg/dL (0.2-1.0); Total Protein 6.5 g/dL (6.4-8.2)
[2018-05-11] MEDS: InsuLIN REG 1unit/0.01ml Soln (100units/ml) SC SCH ×5 (05:59→23:50)
[2018-05-11] MEDS: ACCU-CHEK COMFORT CURVE STRIP VI SCH ×5 (05:59→23:50)
[2018-05-11 08:00] VITALS: BP 144/78
[2018-05-11 09:00] VITALS: BP 144/78
[2018-05-11] MEDS: PANTOPRAZOLE 40 MG/10 ML VIAL IV SCH (09:53)
[2018-05-11] MEDS: ASPirin 81 mg TAB PO SCH (09:53)
[2018-05-11] MEDS: CLOPIDOGREL BISULFATE 75 MG TAB PO SCH (09:53)
[2018-05-11 13:00] VITALS: BP 138/68
[2018-05-11 17:00] VITALS: BP 135/90
[2018-05-11 22:49] VITALS: BP 156/86
[2018-05-12] MEDS: MORPHINE SULF INJ 2 MG/ML SYRINGE 1ML IV PRN ×5 (03:47→23:01)
[2018-05-12 05:27] VITALS: BP 149/83
[2018-05-12] MEDS: InsuLIN REG 1unit/0.01ml Soln (100units/ml) SC SCH ×4 (06:00→23:20)
[2018-05-12 06:22] LABS: Basophils # (auto) 0.1 uL; Basophils % (auto) 0.8 % (0.0-2.0); Eosinophils # (auto) 0.2 uL; Eosinophils % (auto) 1.6 % (0.0-7.0); Hematocrit 46.5 % (41.0-53.0); Hemoglobin 15.6 g/dL (13.5-17.5); Lymphocytes # (auto) 1.8 uL; Lymphocytes % (auto) 13.7 % (10.0-50.0); Mean Corpuscular Hgb Conc. 33.6 g/dL (32.0-36.0); Mean Corpuscular Volume 95.3 fL (80.0-100.0); Monocytes % (auto) 14.6 % (0.0-12.0); Neutrophils # (auto) 9.3 uL; Neutrophils % (auto) 69.3 % (37.0-80.0); Nucleated Red Blood Cells % 0.1 %; Platelet Count (auto) 256 10^3/uL (140-450); Red Blood Cells 4.88 10^6/uL (4.5-5.90); Red Cell Distribution Width 14.1 % (11.8-14.3); White Blood Cell 13.4 10^3/uL (4.4-10.8)
[2018-05-12 06:43] LABS: BUN/Creatinine Ratio 14.5; Magnesium 2.4 mg/dL (1.6-2.6); Potassium 3.7 mmol/L (3.5-5.1)
[2018-05-12] MEDS: ACCU-CHEK COMFORT CURVE STRIP VI SCH ×4 (06:49→23:21)
[2018-05-12 09:00] VITALS: BP 140/75
[2018-05-12] MEDS: PANTOPRAZOLE 40 MG/10 ML VIAL IV SCH (09:54)
[2018-05-12] MEDS: ASPirin 81 mg TAB PO SCH (09:54)
[2018-05-12] MEDS: CLOPIDOGREL BISULFATE 75 MG TAB PO SCH (09:54)
[2018-05-12] MEDS: HYDROcodone-ACET 5/325MG TAB PO PRN ×2 (12:11→20:34)
[2018-05-12 13:00] VITALS: BP 146/81
[2018-05-12 17:24] VITALS: BP 153/87
[2018-05-12 22:00] VITALS: BP 157/92
[2018-05-13 05:00] VITALS: BP 140/83
[2018-05-13] MEDS: ACCU-CHEK COMFORT CURVE STRIP VI SCH ×3 (05:39→17:53)
[2018-05-13] MEDS: MORPHINE SULF INJ 2 MG/ML SYRINGE 1ML IV PRN ×2 (05:39→20:59)
[2018-05-13] MEDS: InsuLIN REG 1unit/0.01ml Soln (100units/ml) SC SCH ×3 (05:39→17:53)
[2018-05-13 07:12] LABS: Basophils # (auto) 0 uL; Basophils % (auto) 0.2 % (0.0-2.0); Eosinophils # (auto) 0.4 uL; Eosinophils % (auto) 2.8 % (0.0-7.0); Hematocrit 46.8 % (41.0-53.0); Lymphocytes # (auto) 1.2 uL; Lymphocytes % (auto) 9.1 % (10.0-50.0); Mean Corpuscular Hemoglobin 32.9 pg (28.0-32.0); Mean Corpuscular Hgb Conc. 34.3 g/dL (32.0-36.0); Mean Corpuscular Volume 96.1 fL (80.0-100.0); Monocytes # (auto) 1.7 uL; Monocytes % (auto) 12.5 % (0.0-12.0); Neutrophils # (auto) 10.1 uL; Neutrophils % (auto) 75.4 % (37.0-80.0); Nucleated Red Blood Cells % 0.1 %; Platelet Count (auto) 259 10^3/uL (140-450); Red Blood Cells 4.88 10^6/uL (4.5-5.90); White Blood Cell 13.4 10^3/uL (4.4-10.8)
[2018-05-13 08:18] VITALS: BP 137/83
[2018-05-13 09:14] VITALS: BP 137/83
[2018-05-13] MEDS: PANTOPRAZOLE 40 MG/10 ML VIAL IV SCH (10:17)
[2018-05-13] MEDS: ASPirin 81 mg TAB PO SCH (10:17)
[2018-05-13] MEDS: CLOPIDOGREL BISULFATE 75 MG TAB PO SCH (10:17)
[2018-05-13] MEDS: HYDROcodone-ACET 5/325MG TAB PO PRN ×3 (10:18→22:42)
[2018-05-13] MEDS ORDERED: DOCUSATE SOD 100 MG CAP PO ONE (12:45)
[2018-05-13 13:00] VITALS: BP 130/79
[2018-05-13 17:01] VITALS: BP 142/73
[2018-05-13] MEDS: DOCUSATE SOD 100 MG CAP PO SCH (20:59)
[2018-05-13 22:08] VITALS: BP 151/77
[2018-05-13] MEDS ORDERED: TEMAZEPAM 15 MG CAP PO ONE (22:15)
[2018-05-14] MEDS: InsuLIN REG 1unit/0.01ml Soln (100units/ml) SC SCH ×4 (00:19→17:56)
[2018-05-14] MEDS: ACCU-CHEK COMFORT CURVE STRIP VI SCH ×4 (00:19→17:56)
[2018-05-14 04:49] VITALS: BP 153/79
[2018-05-14] MEDS: MORPHINE SULF INJ 2 MG/ML SYRINGE 1ML IV PRN ×2 (05:17→11:13)
[2018-05-14 05:47] LABS: Basophils # (auto) 0.1 uL; Basophils % (auto) 0.5 % (0.0-2.0); Eosinophils # (auto) 0.3 uL; Eosinophils % (auto) 2.9 % (0.0-7.0); Hematocrit 44.9 % (41.0-53.0); Hemoglobin 15.8 g/dL (13.5-17.5); Lymphocytes # (auto) 1.4 uL; Lymphocytes % (auto) 13.6 % (10.0-50.0); Mean Corpuscular Hemoglobin 33.8 pg (28.0-32.0); Mean Corpuscular Hgb Conc. 35.3 g/dL (32.0-36.0); Mean Corpuscular Volume 95.8 fL (80.0-100.0); Monocytes # (auto) 1.5 uL; Monocytes % (auto) 14.2 % (0.0-12.0); Neutrophils # (auto) 7.2 uL; Neutrophils % (auto) 68.8 % (37.0-80.0); Nucleated Red Blood Cells % 0.1 %; Platelet Count (auto) 283 10^3/uL (140-450); Red Blood Cells 4.69 10^6/uL (4.5-5.90); White Blood Cell 10.5 10^3/uL (4.4-10.8)
[2018-05-14 06:07] LABS: BUN/Creatinine Ratio 12.8; Calcium 8.4 mg/dL (8.5-10.1); Potassium 3.5 mmol/L (3.5-5.1)
[2018-05-14 07:45] VITALS: BP 145/84
[2018-05-14 09:00] VITALS: BP 145/84
[2018-05-14] MEDS ORDERED: MORPHINE SULF INJ 2 MG/ML SYRINGE 1ML IV PRN (12:15)
[2018-05-14] MEDS ORDERED: MILK OF MAGNESIA 30ML SUSP PO ONE (12:15)
[2018-05-14 13:00] VITALS: BP 153/82
[2018-05-14] MEDS: HYDROcodone-ACET 5/325MG TAB PO PRN ×2 (13:06→22:09)
[2018-05-14] MEDS: PANTOPRAZOLE 40 MG/10 ML VIAL IV SCH (15:26)
[2018-05-14] MEDS: ASPirin 81 mg TAB PO SCH (15:27)
[2018-05-14] MEDS: MORPHINE SULFATE 4 MG/ML SYR/VIAL IV PRN ×2 (15:27→20:17)
[2018-05-14] MEDS: DOCUSATE SOD 100 MG CAP PO SCH ×2 (15:27→22:08)
[2018-05-14 17:00] VITALS: BP 148/85
[2018-05-14] MEDS ORDERED: LACTULOSE 20Gm/30ML SOLN PO ONE (19:15)
[2018-05-14 20:58] VITALS: BP 140/79
[2018-05-14] MEDS ORDERED: TEMAZEPAM 15 MG CAP PO ONE (23:00)
[2018-05-15] MEDS: ACCU-CHEK COMFORT CURVE STRIP VI SCH ×5 (00:05→23:30)
[2018-05-15] MEDS: MORPHINE SULFATE 4 MG/ML SYR/VIAL IV PRN ×4 (05:21→21:49)
[2018-05-15 05:26] LABS: Basophils # (auto) 0.1 uL; Basophils % (auto) 0.6 % (0.0-2.0); Eosinophils # (auto) 0.2 uL; Eosinophils % (auto) 1.5 % (0.0-7.0); Hematocrit 47.1 % (41.0-53.0); Hemoglobin 16.5 g/dL (13.5-17.5); Lymphocytes # (auto) 1.4 uL; Lymphocytes % (auto) 8.6 % (10.0-50.0); Mean Corpuscular Hemoglobin 33.2 pg (28.0-32.0); Mean Corpuscular Hgb Conc. 34.9 g/dL (32.0-36.0); Mean Corpuscular Volume 95.2 fL (80.0-100.0); Monocytes # (auto) 2.2 uL; Monocytes % (auto) 14.1 % (0.0-12.0); Neutrophils # (auto) 11.9 uL; Neutrophils % (auto) 75.2 % (37.0-80.0); Platelet Count (auto) 312 10^3/uL (140-450); Red Blood Cells 4.95 10^6/uL (4.5-5.90); White Blood Cell 15.8 10^3/uL (4.4-10.8)
[2018-05-15] MEDS: InsuLIN REG 1unit/0.01ml Soln (100units/ml) SC SCH ×5 (05:45→23:30)
[2018-05-15 05:49] VITALS: BP 140/90
[2018-05-15 05:53] LABS: Bilirubin, Total 1.3 mg/dL (0.2-1.0); Calcium 8.6 mg/dL (8.5-10.1); Total Protein 7.4 g/dL (6.4-8.2)
[2018-05-15] MEDS: HYDROcodone-ACET 5/325MG TAB PO PRN (06:48)
[2018-05-15 09:00] VITALS: BP 131/79
[2018-05-15] MEDS: PANTOPRAZOLE 40 MG/10 ML VIAL IV SCH (10:20)
[2018-05-15] MEDS: ASPirin 81 mg TAB PO SCH (10:20)
[2018-05-15] MEDS: DOCUSATE SOD 100 MG CAP PO SCH ×2 (10:21→21:49)
[2018-05-15 13:00] VITALS: BP 138/83
[2018-05-15] MEDS ORDERED: IOHEXOL 300 MG/ML 100ML BOTTLE IJ ONE (13:28)
[2018-05-15] MEDS ORDERED: LEVOFLOXACIN 500MG 100 ML IV ONE (13:30)
[2018-05-15] MEDS ORDERED: LACTULOSE 20Gm/30ML SOLN PO ONE (13:30)
[2018-05-15] MEDS: metroNIDAZOLE 500MG/100ML 100 ML IV SCH ×2 (15:35→21:49)
[2018-05-15 17:00] VITALS: BP 126/74
[2018-05-15] MEDS ORDERED: ACETAMINOPHEN 500 MG TAB PO PRN (17:00)
[2018-05-15 18:00] VITALS: BP 130/82
[2018-05-15] MEDS ORDERED: TEMAZEPAM 15 MG CAP PO ONE (22:30)
[2018-05-16 04:27] VITALS: BP 130/70
[2018-05-16] MEDS: metroNIDAZOLE 500MG/100ML 100 ML IV SCH ×3 (05:48→21:56)
[2018-05-16] MEDS: ACCU-CHEK COMFORT CURVE STRIP VI SCH ×3 (05:48→18:00)
[2018-05-16 05:54] LABS: Basophils # (auto) 0.1 uL; Basophils % (auto) 0.2 % (0.0-2.0); Eosinophils # (auto) 0.1 uL; Eosinophils % (auto) 0.5 % (0.0-7.0); Hematocrit 45.9 % (41.0-53.0); Hemoglobin 15.6 g/dL (13.5-17.5); Lymphocytes # (auto) 1.3 uL; Lymphocytes % (auto) 5.5 % (10.0-50.0); Mean Corpuscular Hemoglobin 32.8 pg (28.0-32.0); Mean Corpuscular Volume 96.3 fL (80.0-100.0); Monocytes # (auto) 3.5 uL; Monocytes % (auto) 14.5 % (0.0-12.0); Neutrophils # (auto) 18.9 uL; Neutrophils % (auto) 79.3 % (37.0-80.0); Nucleated Red Blood Cells % 0.1 %; Platelet Count (auto) 316 10^3/uL (140-450); Red Blood Cells 4.77 10^6/uL (4.5-5.90); White Blood Cell 23.8 10^3/uL (4.4-10.8)
[2018-05-16] MEDS: InsuLIN REG 1unit/0.01ml Soln (100units/ml) SC SCH ×3 (05:58→18:00)
[2018-05-16 06:34] LABS: Albumin 2.8 g/dL (3.4-5.0); BUN/Creatinine Ratio 17.8; Calcium 8.5 mg/dL (8.5-10.1)
[2018-05-16 06:37] LABS: Total Protein 7.5 g/dL (6.4-8.2)
[2018-05-16 09:38] VITALS: BP 131/73
[2018-05-16] MEDS: DOCUSATE SOD 100 MG CAP PO SCH ×2 (09:58→21:56)
[2018-05-16] MEDS: PANTOPRAZOLE 40 MG/10 ML VIAL IV SCH (09:58)
[2018-05-16] MEDS: ASPirin 81 mg TAB PO SCH (09:58)
[2018-05-16] MEDS ORDERED: LEVOFLOXACIN 500MG 100 ML IV SCH (10:00)
[2018-05-16] MEDS: LACTULOSE 20Gm/30ML SOLN PO PRN ×2 (10:10→21:56)
[2018-05-16 12:30] VITALS: BP 129/79
[2018-05-16] MEDS ORDERED: cefTRIAXone 1GM/10ml IVPUSH 10 ML IV ONE (12:30)
[2018-05-16] MEDS ORDERED: LORazepam 2MG/ML-1ML VIAL IV PRN (12:30)
[2018-05-16] MEDS: MORPHINE SULFATE 4 MG/ML SYR/VIAL IV PRN ×2 (13:42→20:13)
[2018-05-16 17:22] VITALS: BP 133/77
[2018-05-16 21:55] VITALS: BP 147/85
[2018-05-17] MEDS: ACCU-CHEK COMFORT CURVE STRIP VI SCH ×4 (00:25→18:00)
[2018-05-17] MEDS: InsuLIN REG 1unit/0.01ml Soln (100units/ml) SC SCH ×4 (00:25→18:00)
[2018-05-17] MEDS: MORPHINE SULFATE 4 MG/ML SYR/VIAL IV PRN ×3 (02:30→19:43)
[2018-05-17 05:01] VITALS: BP 125/79
[2018-05-17 05:57] LABS: Basophils # (auto) 0.2 uL; Eosinophils # (auto) 0.3 uL; Eosinophils % (auto) 1.7 % (0.0-7.0); Hematocrit 43.6 % (41.0-53.0); Hemoglobin 14.8 g/dL (13.5-17.5); Lymphocytes # (auto) 1.9 uL; Lymphocytes % (auto) 10.6 % (10.0-50.0); Mean Corpuscular Hemoglobin 32.6 pg (28.0-32.0); Monocytes # (auto) 2.8 uL; Monocytes % (auto) 16.1 % (0.0-12.0); Neutrophils # (auto) 12.4 uL; Neutrophils % (auto) 70.6 % (37.0-80.0); Platelet Count (auto) 318 10^3/uL (140-450); Red Blood Cells 4.54 10^6/uL (4.5-5.90); White Blood Cell 17.5 10^3/uL (4.4-10.8)
[2018-05-17] MEDS: metroNIDAZOLE 500MG/100ML 100 ML IV SCH ×3 (06:19→22:05)
[2018-05-17 06:28] LABS: Albumin 2.7 g/dL (3.4-5.0); BUN/Creatinine Ratio 14.3; Bilirubin, Total 0.7 mg/dL (0.2-1.0); Calcium 8.5 mg/dL (8.5-10.1); Potassium 3.7 mmol/L (3.5-5.1); Total Protein 7.3 g/dL (6.4-8.2)
[2018-05-17 08:00] VITALS: BP 118/77
[2018-05-17] MEDS: ASPirin 81 mg TAB PO SCH (09:46)
[2018-05-17] MEDS: cefTRIAXone 1GM/10ml IVPUSH 10 ML IV SCH (09:46)
[2018-05-17] MEDS: DOCUSATE SOD 100 MG CAP PO SCH ×2 (09:46→22:05)
[2018-05-17] MEDS: PANTOPRAZOLE 40 MG/10 ML VIAL IV SCH (09:46)
[2018-05-17 12:00] VITALS: BP 118/72
[2018-05-17] MEDS ORDERED: MILK OF MAGNESIA 30ML SUSP PO ONE (14:15)
[2018-05-17 16:00] VITALS: BP 130/74
[2018-05-17 22:00] VITALS: BP 134/74
[2018-05-17] MEDS: HYDROcodone-ACET 5/325MG TAB PO PRN (22:09)
[2018-05-18] MEDS: InsuLIN REG 1unit/0.01ml Soln (100units/ml) SC SCH ×3 (00:12→11:32)
[2018-05-18] MEDS: MORPHINE SULFATE 4 MG/ML SYR/VIAL IV PRN ×2 (01:03→05:04)
[2018-05-18 05:00] VITALS: BP 117/68
[2018-05-18] MEDS: metroNIDAZOLE 500MG/100ML 100 ML IV SCH (06:20)
[2018-05-18] MEDS: ACCU-CHEK COMFORT CURVE STRIP VI SCH ×3 (06:21→11:32)
[2018-05-18 06:42] LABS: Hematocrit 40.7 % (41.0-53.0); Hemoglobin 13.6 g/dL (13.5-17.5); Mean Corpuscular Hemoglobin 32.4 pg (28.0-32.0); Mean Corpuscular Hgb Conc. 33.5 g/dL (32.0-36.0); Mean Corpuscular Volume 96.7 fL (80.0-100.0); Platelet Count (auto) 342 10^3/uL (140-450); Red Blood Cells 4.21 10^6/uL (4.5-5.90); Red Cell Distribution Width 14.4 % (11.8-14.3)
[2018-05-18 06:49] LABS: Albumin 2.5 g/dL (3.4-5.0); BUN/Creatinine Ratio 17.9; Bilirubin, Total 0.4 mg/dL (0.2-1.0); Calcium 8.1 mg/dL (8.5-10.1); Potassium 3.6 mmol/L (3.5-5.1); Total Protein 6.8 g/dL (6.4-8.2)
[2018-05-18 06:50] LABS: Basophils % (manual) 0 (0.0-2.0); Blast Cells 0; Metamyelocytes % 0; Myelocytes % 0; Promyelocytes % 0; Reactive Lymphocytes 0
[2018-05-18 09:00] VITALS: BP 142/74
[2018-05-18] MEDS: PANTOPRAZOLE 40 MG/10 ML VIAL IV SCH (09:30)
[2018-05-18] MEDS: cefTRIAXone 1GM/10ml IVPUSH 10 ML IV SCH (09:30)
[2018-05-18] MEDS: ASPirin 81 mg TAB PO SCH (09:30)
[2018-05-18] MEDS: DOCUSATE SOD 100 MG CAP PO SCH (09:39)
[2018-05-18] MEDS: HYDROcodone-ACET 5/325MG TAB PO PRN (09:39)
[2018-05-18 09:47] LABS: Band Neutrophils % (manual) 1; Eosinophils % (manual) 3 (0-7); Lymphocytes % (manual) 25 (10.0-50.0); Monocytes % (manual) 15 (0-12)
[2018-05-18 13:00] VITALS: BP 133/73
== END 2018-05-18 15:46 | disposition home or self-care (01) | DRG 414 ==
LOC: SUR 08:09 → TELE-WESTW 08:10 → WEST WING 14:44
PROVIDERS: ADMIT Surgery; ATTEND Internal Medicine
PROC: 0FT40ZZ Resection of Gallbladder, Open Approach (ICD-10-PCS; principal; 2018-05-09 10:40)
DX: K80.10 Calculus of gallbladder with chronic cholecystitis without obstruction (principal); A41.9 Sepsis, unspecified organism; E03.9 Hypothyroidism, unspecified; E11.9 Type 2 diabetes mellitus without complications; E78.5 Hyperlipidemia, unspecified; I10 Essential (primary) hypertension; I25.10 Atherosclerotic heart disease of native coronary artery without angina pectoris; K59.00 Constipation, unspecified; Z90.81 Acquired absence of spleen; Z95.5 Presence of coronary angioplasty implant and graft; Z79.82 Long term (current) use of aspirin; Z79.899 Other long term (current) drug therapy; Z79.02 Long term (current) use of antithrombotics/antiplatelets
CPT/HCPCS: 36415; 71045; 74177; 74181; 76705; 78226; 80048; 80053; 81001; 82247; 82962; 83036; 83735; 84443; 85007; 85025; 85027; 85610; 85730; 86850; 86900; 86901; A6257; C9113; J0690; J0696; J1815; J1956; J2250; J2405; J2704; J3490

== ENCOUNTER → 2018-06-19 | Outpatient (CLI) | payer OTHER ==
[~2018-06-19] MED LIST changes: +LOSA25TA40 PO; -LOSA25TA9 PO
== END | disposition home or self-care (01) ==
LOC: LAB 11:08
PROVIDERS: ATTEND Surgery
DX: Z09 Encounter for follow-up examination after completed treatment for conditions other than malignant neoplasm (principal)
CPT/HCPCS: 36415; 82565; 84520

== ENCOUNTER 2019-08-06 06:20 | Day surgery (SDC) | payer OTHER ==
[2019-08-02 14:24] LABS: Basophils # (auto) 0.1 uL; Basophils % (auto) 1.1 % (0.0-2.0); Eosinophils # (auto) 0.2 uL; Eosinophils % (auto) 2.3 % (0.0-7.0); Hematocrit 50.2 % (41.0-53.0); Hemoglobin 17.2 g/dL (13.5-17.5); Lymphocytes # (auto) 2.4 uL; Lymphocytes % (auto) 22.9 % (10.0-50.0); Mean Corpuscular Hemoglobin 33.1 pg (28.0-32.0); Mean Corpuscular Hgb Conc. 34.3 g/dL (32.0-36.0); Mean Corpuscular Volume 96.7 fL (80.0-100.0); Monocytes # (auto) 1.1 uL; Monocytes % (auto) 10.1 % (0.0-12.0); Neutrophils # (auto) 6.8 uL; Neutrophils % (auto) 63.6 % (37.0-80.0); Nucleated Red Blood Cells % 0.1 %; Platelet Count (auto) 253 10^3/uL (140-450); Red Blood Cells 5.19 10^6/uL (4.5-5.90); Red Cell Distribution Width 13.5 % (11.8-14.3); White Blood Cell 10.7 10^3/uL (4.4-10.8)
[2019-08-02 14:32] LABS: Urine Blood Negative /uL (Negative); Urine Specific Gravity 1.033 (1.001-1.035)
[2019-08-02 14:44] LABS: Albumin 3.7 g/dL (3.4-5.0); BUN/Creatinine Ratio 14.2; Calcium 8.4 mg/dL (8.5-10.1)
[2019-08-02 14:47] LABS: Bilirubin, Total 2.2 mg/dL (0.2-1.0); Total Protein 7.5 g/dL (6.4-8.2)
[2019-08-02 15:09] LABS: INR 1.05 (0.9-1.15); Partial Thromboplastin Time 32.8 sec (23.64-32.05)
[~2019-08-06] VITALS: Ht 180.3 cm; Wt 74.8 kg
[~2019-08-06 06:20] MED LIST changes: -CANA1TAB8 PO; -CLOP75TA28 PO; +EMPA1TAB21 PO; +LOSA25TA38 PO; -LOSA25TA40 PO; +ceFAZolin 1GM/50ML 50 ML IV ONE
[2019-08-06] MEDS ORDERED: SUCCINYLCHOLINE CHLORIDE 20 MG/ML 10ML VIAL IV ONE (07:15)
[2019-08-06] MEDS ORDERED: ETOMIDATE (2MG/ML) 20ML VIAL IV ONE (07:15)
[2019-08-06] MEDS ORDERED: BUPIVACAINE 0.25% INJ 50ML VIAL ONE (07:25)
[2019-08-06] MEDS ORDERED: MIDAZOLAM HCL 1MG/1ML-2 ML VIAL ONE (07:30)
[2019-08-06] MEDS ORDERED: MEPERIDINE HCL (50 MG/ML) 1 ML VIAL ONE (07:30)
[2019-08-06] MEDS ORDERED: MORPHINE SULFATE 4 MG/ML SYR/VIAL IV PRN (07:30)
[2019-08-06] MEDS ORDERED: ePHEDrine SULFATE 50 MG/ML AMP IV PRN (07:30)
[2019-08-06] MEDS ORDERED: KETOROLAC TROMETH 30 MG/ML 1ML VIAL IV ONE (07:30)
[2019-08-06] MEDS ORDERED: HYDROmorphone HCL 2 MG/ML VL IV PRN (07:30)
[2019-08-06] MEDS ORDERED: fentaNYL CITRATE 100 MCG/2 ML VL ONE (07:30)
[2019-08-06] MEDS ORDERED: LABETALOL HCL 5 MG/ML 4ML SYRINGE IV PRN (07:30)
[2019-08-06] MEDS ORDERED: MIDAZOLAM HCL 1MG/1ML-2 ML VIAL IV PRN (07:30)
[2019-08-06] MEDS ORDERED: ONDANSETRON HCL 4 MG/2 ML VIAL IV PRN (07:30)
[2019-08-06] MEDS ORDERED: PROPOFOL 10 MG/ML 20 ML IV ONE (07:44)
[2019-08-06] MEDS ORDERED: DexAMETHasone SOD PHOS 10MG/1ML VIAL INJ ONE (07:44)
[2019-08-06] MEDS ORDERED: KETOROLAC TROMETH 30 MG/ML 1ML VIAL ONE (08:34)
[2019-08-06 09:46] VITALS: BP 111/66
== END 2019-08-06 09:53 | disposition home or self-care (01) ==
LOC: SUR 06:20
PROVIDERS: ATTEND Orthopaedic Surgery
DX: M75.41 Impingement syndrome of right shoulder (principal); S43.431A Superior glenoid labrum lesion of right shoulder, initial encounter; R22.2 Localized swelling, mass and lump, trunk; M19.011 Primary osteoarthritis, right shoulder; I10 Essential (primary) hypertension; E11.9 Type 2 diabetes mellitus without complications; E03.9 Hypothyroidism, unspecified; I25.10 Atherosclerotic heart disease of native coronary artery without angina pectoris; F17.210 Nicotine dependence, cigarettes, uncomplicated; Z86.73 Personal history of transient ischemic attack (TIA), and cerebral infarction without residual deficits; Z88.1 Allergy status to other antibiotic agents; Z95.5 Presence of coronary angioplasty implant and graft; Z98.890 Other specified postprocedural states; X58.XXXA Exposure to other specified factors, initial encounter; Y93.89 Activity, other specified; Y92.89 Other specified places as the place of occurrence of the external cause; Y99.8 Other external cause status
CPT/HCPCS: 23076; 23415; 29822; 36415; 80053; 81003; 82962; 85025; 85610; 85730; J0330; J0690; J1100; J1885; J2175; J2250; J2704; J3010; J3490; A4565

== ENCOUNTER 2019-08-11 21:13 | Emergency (ER) | payer OTHER ==
[~2019-08-11] VITALS: Ht 180.3 cm; Wt 72.6 kg
[~2019-08-11 21:13] MED LIST changes: -ceFAZolin 1GM/50ML 50 ML IV ONE
[2019-08-11 21:52] VITALS: BP 137/84
== END 2019-08-12 01:52 | disposition home or self-care (01) ==
LOC: ER 21:15
DX: S09.93XA Unspecified injury of face, initial encounter (principal); Z53.21 Procedure and treatment not carried out due to patient leaving prior to being seen by health care provider; W19.XXXA Unspecified fall, initial encounter; Y93.89 Activity, other specified; Y92.89 Other specified places as the place of occurrence of the external cause; Y99.8 Other external cause status
CPT/HCPCS: 70450; 71101; 72125; 73030

== ENCOUNTER 2019-11-21 17:43 | Inpatient (IN) | payer OTHER ==
[~2019-11-21] VITALS: Ht 180.3 cm; Wt 78.6 kg
[2019-11-21 19:18] LABS: Basophils # (auto) 0.1 uL; Eosinophils # (auto) 0 uL; Monocytes # (auto) 1.5 uL
[2019-11-21 19:19] LABS: Basophils % (auto) 0.5 % (0.0-2.0); Eosinophils % (auto) 0.1 % (0.0-7.0); Hematocrit 53.4 % (41.0-53.0); Lymphocytes # (auto) 1.3 uL; Lymphocytes % (auto) 7.5 % (10.0-50.0); Mean Corpuscular Hemoglobin 32.9 pg (28.0-32.0); Mean Corpuscular Hgb Conc. 33.7 g/dL (32.0-36.0); Mean Corpuscular Volume 97.5 fL (80.0-100.0); Monocytes % (auto) 8.4 % (0.0-12.0); Neutrophils # (auto) 14.6 uL; Neutrophils % (auto) 83.5 % (37.0-80.0); Nucleated Red Blood Cells % 0.1 %; Platelet Count (auto) 302 10^3/uL (140-450); Red Blood Cells 5.47 10^6/uL (4.5-5.90); Red Cell Distribution Width 14.1 % (11.8-14.3); White Blood Cell 17.5 10^3/uL (4.4-10.8)
[2019-11-21 19:35] LABS: Albumin 3.7 g/dL (3.4-5.0); Anion Gap 18 (5-15); Blood Urea Nitrogen 18 mg/dL (7-18); Calcium 9.8 mg/dL (8.5-10.1); Carbon Dioxide 17 mmol/L (21-32); Chloride 103 mmol/L (98-107); Glucose 182 mg/dL (74-106); Potassium 4.4 mmol/L (3.5-5.1); Sodium 138 mmol/L (136-145)
[2019-11-21 19:42] LABS: Alanine Aminotransferase 32 U/L (16-61); Alkaline Phosphatase 108 U/L (45-117); Aspartate Aminotransferase 20 U/L (15-37); Bilirubin, Total 2.2 mg/dL (0.2-1.0); GFR African American 91 mL/min; GFR Non-African American 75 mL/min; Total Protein 7.8 g/dL (6.4-8.2)
[2019-11-22] VITALS (15 sets, daily range): BP systolic 93–110; BP diastolic 63–72
[2019-11-22] MEDS ORDERED: ONDANSETRON HCL 4 MG/2 ML VIAL IV ONE (03:00)
[2019-11-22] MEDS ORDERED: HYDROmorphone HCL 2 MG/ML VL IV ONE ×2 (03:00→17:30)
[2019-11-22 04:32] LABS: INR 1.07 (0.9-1.15); Partial Thromboplastin Time 31.3 sec (23.64-32.05)
[2019-11-22] MEDS ORDERED: DEXTROSE (50%) 50ML SYRG IV PRN (06:00)
[2019-11-22] MEDS ORDERED: SODIUM CHLORIDE 0.9% 1,000 ML IV SCH (06:00)
[2019-11-22] MEDS ORDERED: ONDANSETRON HCL 4 MG/2 ML VIAL IV PRN (06:00)
[2019-11-22] MEDS: ACCU-CHEK COMFORT CURVE STRIP VI SCH ×3 (06:21→18:29)
[2019-11-22] MEDS: InsuLIN REG 1unit/0.01ml Soln (100units/ml) SC SCH ×3 (06:21→18:00)
[2019-11-22] MEDS: MORPHINE SULFATE 4 MG/ML SYR/VIAL IV PRN ×2 (08:21→12:51)
[2019-11-22] MEDS ORDERED: READI-CAT 2 (BARIUM SULF)(VANILLA SMOOTHIE) 450ML ONE (08:56)
[2019-11-22] MEDS ORDERED: cefTRIAXone 1GM/50ML D5W 50 ML IV SCH (09:00)
[2019-11-22] MEDS ORDERED: BARIUM SULFATE 98% 340 GM PWDR ONE (09:56)
[2019-11-22] MEDS ORDERED: PANTOPRAZOLE 40 MG/10 ML VIAL INJ IV SCH (10:00)
[2019-11-22] MEDS ORDERED: ceFAZolin 1GM/50ML 50 ML IV ONE (13:07)
[2019-11-22] MEDS ORDERED: ROCURONIUM 10MG/ML 10ML VIAL IV ONE (14:06)
[2019-11-22] MEDS ORDERED: fentaNYL CITRATE 5 ML ONE (14:06)
[2019-11-22] MEDS ORDERED: PROPOFOL 10 MG/ML 20 ML IV ONE (14:07)
[2019-11-22] MEDS ORDERED: MIDAZOLAM HCL 1MG/1ML-2 ML VIAL ONE ×3 (14:07→17:18)
[2019-11-22] MEDS ORDERED: POVIDONE IODINE 10 % TOPICAL OINT 30GM TOP ONE (14:27)
[2019-11-22] MEDS ORDERED: fentaNYL CITRATE 100 MCG/2 ML VL ONE (15:37)
[2019-11-22] MEDS ORDERED: ALBUMIN 5% 250 ML IV ONE ×2 (16:32→16:41)
[2019-11-22] MEDS ORDERED: MIDAZOLAM DRIP 50 mg/50mL 50 ML IV SCH (17:30)
[2019-11-22] MEDS ORDERED: SODIUM CHLORIDE 0.9% 1,950 ML IV ONE (17:30)
[2019-11-22] MEDS ORDERED: D5W/SOD CHL 0.45%/KCL 20MEQ 1,000 ML IV SCH (17:30)
[2019-11-22] MEDS ORDERED: SODIUM BICARBONATE 8.4 % INJ 50ML VIAL IV ONE (17:30)
[2019-11-22] MEDS ORDERED: MIDAZOLAM DRIP 50 mg/50mL 50 ML IV ONE (17:51)
[2019-11-22 19:15] LABS: Basophils # (auto) 0 uL; Basophils % (auto) 0.3 % (0.0-2.0); Eosinophils # (auto) 0 uL; Eosinophils % (auto) 0.9 % (0.0-7.0); Hematocrit 40.4 % (41.0-53.0); Hemoglobin 13.5 g/dL (13.5-17.5); Lymphocytes # (auto) 0.7 uL; Lymphocytes % (auto) 17.5 % (10.0-50.0); Mean Corpuscular Hemoglobin 32.7 pg (28.0-32.0); Mean Corpuscular Hgb Conc. 33.3 g/dL (32.0-36.0); Mean Corpuscular Volume 98.3 fL (80.0-100.0); Monocytes # (auto) 0.2 uL; Monocytes % (auto) 6.1 % (0.0-12.0); Neutrophils # (auto) 2.9 uL; Neutrophils % (auto) 75.2 % (37.0-80.0); Nucleated Red Blood Cells % 0.1 %; Platelet Count (auto) 214 10^3/uL (140-450); Red Blood Cells 4.11 10^6/uL (4.5-5.90); Red Cell Distribution Width 13.8 % (11.8-14.3); White Blood Cell 3.9 10^3/uL (4.4-10.8)
[2019-11-22] MEDS ORDERED: MORPHINE SULF INJ 2 MG/ML SYRINGE 1ML IV PRN (19:15)
[2019-11-22] MEDS: HYDROmorphone HCL 2 MG/ML VL IV PRN ×2 (19:18→19:28)
[2019-11-22 19:32] LABS: Calcium 7.7 mg/dL (8.5-10.1); Potassium 4.1 mmol/L (3.5-5.1)
[2019-11-22 19:36] LABS: Albumin 2.8 g/dL (3.4-5.0); BUN/Creatinine Ratio 28.8
[2019-11-22 20:04] LABS: Bilirubin, Total 2.8 mg/dL (0.2-1.0)
[2019-11-22] MEDS ORDERED: IOHEXOL 350 MG/ML 100ML IJ ONE (20:30)
[2019-11-22] MEDS ORDERED: PIPERACILLIN-TAZOB 3.375GM 100 ML IV ONE (20:30)
[2019-11-22] MEDS ORDERED: SODIUM CHLORIDE 0.9% 1,000 ML IV ONE (20:30)
--- NOTE | 2019-11-22 21:00 | NUR ---
PT WAS BROUGHT TO ICU 105 AT APPROX 2100 AND CHANGED BACK TO VENT V11. PT WAS ON TRANSPORT VENT. AC 16 VT 550 +5 30% . PT WAS TRANSPORTED TO CT AND ICU WITHOUT ANY INCIDENTS. WILL CONTINUE TO MONITOR.
[2019-11-22] MEDS: MORPHINE SULF INJ 2 MG/ML SYRINGE 1ML IV PRN (21:55)
[2019-11-22] MEDS ORDERED: ACETAMINOPHEN 650 MG RECT SUPP PR PRN (22:30)
[2019-11-22 22:37] LABS: Basophils # (auto) 0 uL; Basophils % (auto) 0.3 % (0.0-2.0); Eosinophils # (auto) 0 uL; Eosinophils % (auto) 0.4 % (0.0-7.0); Hematocrit 42.3 % (41.0-53.0); Lymphocytes # (auto) 0.6 uL; Lymphocytes % (auto) 10.5 % (10.0-50.0); Mean Corpuscular Hemoglobin 33.1 pg (28.0-32.0); Mean Corpuscular Hgb Conc. 33.2 g/dL (32.0-36.0); Mean Corpuscular Volume 99.6 fL (80.0-100.0); Monocytes % (auto) 17.2 % (0.0-12.0); Neutrophils # (auto) 4.3 uL; Neutrophils % (auto) 71.6 % (37.0-80.0); Nucleated Red Blood Cells % 0.1 %; Platelet Count (auto) 230 10^3/uL (140-450); Red Blood Cells 4.24 10^6/uL (4.5-5.90); Red Cell Distribution Width 14.2 % (11.8-14.3)
[2019-11-22 23:02] LABS: BUN/Creatinine Ratio 25.3; Calcium 7.4 mg/dL (8.5-10.1); Magnesium 1.6 mg/dL (1.6-2.6); Potassium 3.8 mmol/L (3.5-5.1)
[2019-11-23] VITALS (103 sets, daily range): BP systolic 79–110; BP diastolic 51–71
[2019-11-23] MEDS: ceFAZolin 1GM/50ML 50 ML IV SCH ×2 (01:09→05:32)
[2019-11-23] MEDS: MAGNESIUM SULFATE 1GM/100ML 100 ML IV SCH ×2 (01:23)
[2019-11-23] MEDS: HYDROmorphone HCL 2 MG/ML VL IV PRN (01:24)
[2019-11-23] MEDS: PIPERACILLIN-TAZOB 3.375GM 100 ML IV SCH ×4 (01:45→18:34)
[2019-11-23 05:06] LABS: Alanine Aminotransferase 45 U/L (16-61); Albumin 2.8 g/dL (3.4-5.0); Anion Gap 19 (5-15); BUN/Creatinine Ratio 18.5; Blood Urea Nitrogen 22 mg/dL (7-18); Calcium 7.2 mg/dL (8.5-10.1); Carbon Dioxide 12 mmol/L (21-32); Chloride 109 mmol/L (98-107); GFR African American 79 mL/min; GFR Non-African American 66 mL/min; Glucose 332 mg/dL (74-106); Potassium 4.2 mmol/L (3.5-5.1); Sodium 140 mmol/L (136-145)
[2019-11-23 05:13] LABS: Alkaline Phosphatase 41 U/L (45-117); Aspartate Aminotransferase 46 U/L (15-37); Total Protein 5.2 g/dL (6.4-8.2)
[2019-11-23] MEDS: InsuLIN REG 1unit/0.01ml Soln (100units/ml) SC SCH ×4 (05:49→18:34)
[2019-11-23] MEDS: ACCU-CHEK COMFORT CURVE STRIP VI SCH ×4 (05:49→18:33)
[2019-11-23] MEDS: metroNIDAZOLE 500MG/100ML 100 ML IV SCH ×4 (06:00→21:59)
--- NOTE | 2019-11-23 08:00 | NUR ---
DR. HUTCHISON ROUNDING ON PT. FOR 1ST CONSULTATION UPDATED MD. ON PT'S CONDITION AND ON PT'S HISTORY MD. ADJUSTED VENTILATOR SETTINGS ; PT'S SEDATION AND ATB'S. NEW LABS ORDERED. DISCUSSED POC WITH BOTH RT & RN.
[2019-11-23] MEDS ORDERED: PROPOFOL 100 ML IV SCH (08:08)
--- NOTE | 2019-11-23 08:38 | NUR ---
DR. FULLER ROUNDING ON PT UPDATED ON PT'S CONDITION TOTAL IVF INTAKE, PT IS TACHYCARDIC HR IN THE 120'S, I TOLD HIM WE ARE CHECKING LACTATE, PT HAS RECEIVED A TOTAL OF 8 L OF IVF, HE PROBABLY IS STILL BEHIND ON IVF, HE AGREED, HE INCREASED THE RATE OF MAIN IVF AND ORDERED ONE LITER IVF BOLUS. I TOLD HIM SEDATION IS GOING TPO BE CHANGES DISCUSSED WITH DR. HUTCHISON.
[2019-11-23] MEDS ORDERED: SODIUM CHLORIDE 0.9% 1,000 ML IV ONE (08:45)
[2019-11-23] MEDS: fentaNYL Drip 2500mCg/250mlNS 250 ML IV SCH (08:46)
[2019-11-23] MEDS: PROPOFOL 100 ML IV SCH ×2 (08:50→18:29)
--- NOTE | 2019-11-23 09:33 | NUR ---
DR. MONZON ROUNDJEANINE ON PT UPDATED ON PT'S CONDITION NEW ORDERS RECEIVED TO ADD MG TO AM LABS, WHICH HAVE TO BE RE-DRAWN. I CALLED LAB TO CHECK ON RESULTS AND I WAS TOLD BLOOD HEMOLYZED AND THAT THE CAPPER MACHINE OPERATOR WAS BEING SENT TO RE-DRAW. Addendum: 11/23/19 at 1516 by MI BURGESS RN DR. RAMIREZ ROUNDED ON PT. NOT DR. MONZON
[2019-11-23 09:46] LABS: Basophils # (auto) 0 uL; Basophils % (auto) 0.1 % (0.0-2.0); Eosinophils # (auto) 0 uL; Eosinophils % (auto) 0.1 % (0.0-7.0); Hematocrit 34.3 % (41.0-53.0); Hemoglobin 11.4 g/dL (13.5-17.5); Lymphocytes # (auto) 0.6 uL; Lymphocytes % (auto) 5.5 % (10.0-50.0); Mean Corpuscular Hemoglobin 32.6 pg (28.0-32.0); Mean Corpuscular Hgb Conc. 33.2 g/dL (32.0-36.0); Mean Corpuscular Volume 98.1 fL (80.0-100.0); Monocytes # (auto) 1.7 uL; Monocytes % (auto) 15.2 % (0.0-12.0); Neutrophils # (auto) 8.8 uL; Neutrophils % (auto) 79.1 % (37.0-80.0); Nucleated Red Blood Cells % 0.1 %; Platelet Count (auto) 194 10^3/uL (140-450); Red Cell Distribution Width 13.9 % (11.8-14.3); White Blood Cell 11.1 10^3/uL (4.4-10.8)
[2019-11-23] MEDS ORDERED: PPN PER PHARMACY 0 ML IV SCH (10:15)
[2019-11-23 10:48] LABS: Phosphorus 2.6 mg/dL (2.5-4.90)
[2019-11-23 10:51] LABS: Pre Albumin 8.5 mg/dL (20.0-40.0)
[2019-11-23] MEDS: PANTOPRAZOLE 40 MG/10 ML VIAL INJ IV SCH (10:54)
[2019-11-23] MEDS: D5W/SOD CHL 0.45%/KCL 20MEQ 1,000 ML IV SCH ×2 (10:55→13:23)
--- NOTE | 2019-11-23 13:30 | NUR ---
REPOSITIONING Assisted Alyx RN in repositioning pt. and pt. tolerated procedure well, no other problems noted.
--- NOTE | 2019-11-23 15:42 | NUR ---
PHYSICAL THERAPY IN DOING PROM ON PT. PT TOLERATED PROCEDURE WELL.
--- NOTE | 2019-11-23 19:00 | NUR ---
CLOSING. BOTH LACTIC ACIDS NEGATIVE. BOTH TROPONIN NEGATIVE. PT REMAINS TACHYCARDIC, TEMP, SLOWLY RISING UP. SLOWLY INCREASING FENTANYL AND PROPOFOL, PT PENDING PICC LINE INSERTION. SUPERVISOR HOME ENERGY CONSULTANT AND CHARGE NURSE AWARE. CONSENT AND LABS ARE READY.
--- NOTE | 2019-11-23 19:00 | NUR ---
OPENING NOTE ASSUMED CARE OF PATIENT AT THIS TIME. REPORT RECEIVED FROM DAY SHIFT RN. POC REVIEWED. HEAD TO TOE ASSESSMENT COMPLETE, SEE INTERVENTION SPREADSHEET FOR COMPLETE DETAILS. SCHLERAL EDEMA AND JAUNDICE NOTED ON ASSESSMENT. RECEIVED PT INTUBATED, SEDATED S/P ABD SX. MELISSA DRAIN WITH SEROSANGUINEOUS FLUID AND BLAKEN TUBE TO WALL SUCTION ORDERED. OGT TO LCS. VSS OTHER THAN HR 110'S. PT OPENS EYES AND MOVES EXTREMITIES WHEN STIMULATED. ABD BINDER IN PLACE. INCISION CDI. IV SITES BENIGN. CARTER CATHETER DRAINING TO GRAVITY. SUCTION AND BVM AT BEDSIDE. BED LOCKED AND IN LOWEST POSITION, SAFETY PRECAUTIONS IN PLACE, WILL MONITOR PT CAREFULLY.
[2019-11-23] MEDS ORDERED: PPN PER PHARMACY IV NR ×7 (20:00)
--- NOTE | 2019-11-23 21:00 | NUR ---
TEMPERATURE RECTAL TEMP MONITORING INITIATED, TEMP 100.4. PT TACHYCARDIC 110'S. ICE PACKS AND COOLING MEASURES INITIATED AT THIS TIME. WILL CONTINUE TO MONITOR.
--- NOTE | 2019-11-23 22:34 | NUR ---
TEMP REASSESSMENT 99.5 RECTALLY. CONTINUE COOLING MEASURES.
--- NOTE | 2019-11-23 22:43 | NUR ---
SEDATION PT AROUSABLE WHEN TURNING, PT REACHING FOR ET TUBE, EYES OPEN. MITTENS PLACED ON HANDS BILATERALLY. PROPOFOL INCREASED TO 35 MCG AT THIS TIME. VSS. WILL CONTINUE TO MONITOR PT.
[2019-11-24] VITALS (78 sets, daily range): BP systolic 89–145; BP diastolic 47–97
[2019-11-24] MEDS ORDERED: DEXTROSE (50%) 50ML SYRG IV SCH
[2019-11-24] MEDS: PIPERACILLIN-TAZOB 3.375GM 100 ML IV SCH ×5 (00:11→23:34)
[2019-11-24] MEDS: InsuLIN REG 1unit/0.01ml Soln (100units/ml) SC SCH ×5 (00:12→23:34)
[2019-11-24] MEDS: ACCU-CHEK COMFORT CURVE STRIP VI SCH ×5 (00:12→23:34)
[2019-11-24] MEDS: D5W/SOD CHL 0.45%/KCL 20MEQ 1,000 ML IV SCH ×3 (00:45→06:38)
[2019-11-24] MEDS: PROPOFOL 100 ML IV SCH (04:10)
[2019-11-24 04:28] LABS: Hematocrit 33.7 % (41.0-53.0); Hemoglobin 11.2 g/dL (13.5-17.5); Mean Corpuscular Hemoglobin 32.8 pg (28.0-32.0); Mean Corpuscular Hgb Conc. 33.2 g/dL (32.0-36.0); Platelet Count (auto) 179 10^3/uL (140-450); Red Blood Cells 3.41 10^6/uL (4.5-5.90); Red Cell Distribution Width 14.3 % (11.8-14.3); White Blood Cell 14.6 10^3/uL (4.4-10.8)
[2019-11-24 04:36] LABS: Basophils % (manual) 0 (0.0-2.0); Blast Cells 0; Eosinophils % (manual) 0 (0-7); Metamyelocytes % 0; Myelocytes % 0; Promyelocytes % 0; Reactive Lymphocytes 0
[2019-11-24 04:43] LABS: INR 1.16 (0.9-1.15); Partial Thromboplastin Time 47.4 sec (23.64-32.05)
[2019-11-24 04:50] LABS: Calcium 7.8 mg/dL (8.5-10.1)
[2019-11-24 04:56] LABS: Albumin 2.4 g/dL (3.4-5.0); BUN/Creatinine Ratio 12.1; Bilirubin, Total 0.9 mg/dL (0.2-1.0); Magnesium 2.6 mg/dL (1.6-2.6); Phosphorus 1.4 mg/dL (2.5-4.90); Total Protein 5.4 g/dL (6.4-8.2)
[2019-11-24] MEDS: metroNIDAZOLE 500MG/100ML 100 ML IV SCH ×3 (05:41→22:42)
[2019-11-24 06:30] LABS: Band Neutrophils % (manual) 47; Lymphocytes % (manual) 4 (10.0-50.0); Monocytes % (manual) 7 (0-12)
[2019-11-24] MEDS: fentaNYL Drip 2500mCg/250mlNS 250 ML IV SCH (06:38)
--- NOTE | 2019-11-24 08:00 | NUR ---
REPOSITIONING Ida Wisdom RN in repositioning pt., pt. tolerated procedure well, no other problems noted.
--- NOTE | 2019-11-24 09:58 | NUR ---
DR. RAMIREZ ROUNDING ON PT. UPDATED ON PT'S CONDITION, IVF, PHARMACIST CONCERN ABOUT KCL ON IVF AND PPN. MD ADJUSTED IVF AND RATE. SEE NEW VF ORDERS. PT READY FOR CPAP.
[2019-11-24] MEDS: PANTOPRAZOLE 40 MG/10 ML VIAL INJ IV SCH (10:05)
[2019-11-24] MEDS ORDERED: SODIUM PHOSP 40 MEQ in D5W 5% 250 ML IV ONE (10:45)
--- NOTE | 2019-11-24 11:43 | NUR ---
DR. HUTCHISON CALLED TO GET AN UPDATE ON PT'S CONDITION PRIOR TO EXTUBATION. UPDATED ON PT'S BUN + CR AND IVF STATUS. MD WANTS PT TO BE DIURESED S/P EXTUBATION.
[2019-11-24] MEDS ORDERED: BUMETANIDE 2.5mg/10ml (0.25 mg/ml) INJ IV ONE (11:45)
--- NOTE | 2019-11-24 11:50 | NUR ---
RT NOTE: CPAP ABG RESULTS GIVEN TO DR HUTCHISON,, WEANING PARAMETERS- NIF- -29, VC 950, LEAK 400, RSBI 30. PT WAS EXTUBATED AT THIS TIME, PT WAS PLACED ON COOL AEROSOL. NO STRIDOR NOTED. WILL CONTINUE TO MONITOR PT.
[2019-11-24] MEDS: D5W/SOD CHL 0.45% 1,000 ML IV SCH (11:56)
[2019-11-24] MEDS: HYDROmorphone HCL 2 MG/ML VL IV PRN ×3 (14:07→23:35)
--- NOTE | 2019-11-24 14:25 | NUR ---
JUICE CHE AT BEDSIDE FOR PICC LINE INSERTION. PRE-MEDICATED PT WITH 0.5 MG OF DILAUDID FOR GENERALIZED PAIN 05/11. PT REMAINS ON CM AT 40%, SPO2 AT 98-100%, PT DIURESED 2074 OF CLEAR YELLOW URINE. VSS, TEMP 99.9 RECTALLY.
--- NOTE | 2019-11-24 15:16 | NUR ---
Nutrition Assessment Notes Please refer to link for full assessment notes. Est energy needs: 3731-5328 kcals (25-30 kcal/kgBW) Est protein needs: 57-71 gms/day (0.8-1.0 gm/kgBW) Will continue to monitor and reassess prn. Addendum: 11/24/19 at [address] Amended: Links added.
[2019-11-24] MEDS: MORPHINE SULF INJ 2 MG/ML SYRINGE 1ML IV PRN ×2 (16:28→20:53)
--- NOTE | 2019-11-24 18:00 | NUR ---
VICKIE'S JEJUNOSTOMY TUBE IRRIGATED WITH 20 ML SALINE AND 10 ML OF MINERAL OIL RX BY DR. FULLER. THEN PLACED BACK TO [facility]. PT TOLERATED PROCEDURE WELL.
--- NOTE | 2019-11-24 18:15 | NUR ---
PLACED ON 2 L NC. SP2 REMAINED AT 95%, PT SELF SUCTIONING WITH YANQUER, COUGHING UP THICK TRAVIS ORAL SECRETIONS.
[2019-11-24] MEDS: MINERAL OIL 30 ML GT SCH ×2 (18:26→22:42)
[2019-11-24 19:00] LABS: Magnesium 2.1 mg/dL (1.6-2.6); Potassium 3.1 mmol/L (3.5-5.1)
--- NOTE | 2019-11-24 19:00 | NUR ---
PT TRANSFERRED TO [facility].
--- NOTE | 2019-11-24 19:40 | NUR ---
Received Pt from ICU 105 to [facility] 266 Pt transferred by bed with portable O2, surveillance system monitor and 2 RN's, Pt awake and alert, soft delayed voice. Connected Pt to bedside monitor and oxygen. Pt oriented Susy García, primary RN. Pt breathing even and nonlabored, on O2NC 2LPM, No S/S of distress/SOB or pain. PIV x3 at both arms dry and intact. Instructed on POC and to call for assist PRN, will continue to monitor for changes Q1hr and PRN.
--- NOTE | 2019-11-24 20:00 | NUR ---
REPORT GIVEN TO [facility] RN.
[2019-11-24] MEDS: PPN PER PHARMACY IV NR ×10 (20:42)
--- NOTE | 2019-11-25 00:11 | NUR ---
Low potassium and phosphorus level Spoke with [facility] pharmacist and received the recommend/ per protocol electrolyte replacement, TORB and verified correct. The pharmacist will verify the medication, will administer medicine, see order sheet and EMAR for details.
[2019-11-25] MEDS ORDERED: SODIUM PHOSPHATES 40 MEQ in D5W 5% 250 ML IV ONE (00:15)
[2019-11-25 00:21] VITALS: BP 117/69
[2019-11-25] MEDS: POTASSIUM CHL 20MEQ/100ML 100 ML IV SCH ×2 (00:40→03:36)
[2019-11-25] MEDS: MORPHINE SULF INJ 2 MG/ML SYRINGE 1ML IV PRN ×4 (01:11→21:33)
[2019-11-25] MEDS: MINERAL OIL 30 ML GT SCH ×6 (01:12→21:40)
[2019-11-25 04:00] VITALS: BP 104/65
[2019-11-25] MEDS: HYDROmorphone HCL 2 MG/ML VL IV PRN (04:02)
[2019-11-25] MEDS: D5W/SOD CHL 0.45% 1,000 ML IV SCH ×2 (04:34→12:40)
--- NOTE | 2019-11-25 05:30 | NUR ---
Patient bathe/linen change Patient given partial bath with CHG wipes. Skin integrity assessed for any changes, no new changes, sacrum intact. Linens changed. Patient repositioned for comfort. Tolerated well. Pt able to turn self slowly. Continue care.
[2019-11-25] MEDS: PIPERACILLIN-TAZOB 3.375GM 100 ML IV SCH ×4 (05:31→23:46)
[2019-11-25] MEDS: metroNIDAZOLE 500MG/100ML 100 ML IV SCH ×2 (05:31→13:28)
--- NOTE | 2019-11-25 06:00 | NUR ---
NGT, Bauer's tube, Output NGT marked at ~50cms, connected to LCS, with greenish bile drainage ~3ml. Bauer's tube plication, irrigated with mineral oil q4hr, most of the oil pushed out when irrigated, some drained through the LIS ~10ml greenish bile color. MELISSA drained sanguinous 57ml.
[2019-11-25 06:10] LABS: Basophils # (auto) 0 uL; Basophils % (auto) 0.4 % (0.0-2.0); Eosinophils # (auto) 0.2 uL; Hematocrit 29.2 % (41.0-53.0); Hemoglobin 10.1 g/dL (13.5-17.5); Lymphocytes # (auto) 1.1 uL; Lymphocytes % (auto) 10.2 % (10.0-50.0); Mean Corpuscular Hemoglobin 33.7 pg (28.0-32.0); Mean Corpuscular Hgb Conc. 34.7 g/dL (32.0-36.0); Mean Corpuscular Volume 97.2 fL (80.0-100.0); Monocytes # (auto) 1.2 uL; Monocytes % (auto) 11.5 % (0.0-12.0); Neutrophils # (auto) 8.1 uL; Neutrophils % (auto) 75.9 % (37.0-80.0); Nucleated Red Blood Cells % 0.1 %; Platelet Count (auto) 210 10^3/uL (140-450); Red Cell Distribution Width 14.3 % (11.8-14.3); White Blood Cell 10.6 10^3/uL (4.4-10.8)
[2019-11-25] MEDS: ACCU-CHEK COMFORT CURVE STRIP VI SCH ×4 (06:23→23:47)
[2019-11-25] MEDS: InsuLIN REG 1unit/0.01ml Soln (100units/ml) SC SCH ×4 (06:24→23:47)
[2019-11-25 06:27] LABS: Albumin 1.9 g/dL (3.4-5.0); Calcium 7.7 mg/dL (8.5-10.1); Potassium 3.5 mmol/L (3.5-5.1)
[2019-11-25 06:31] LABS: BUN/Creatinine Ratio 16.4; Bilirubin, Total 0.8 mg/dL (0.2-1.0); Total Protein 5.2 g/dL (6.4-8.2)
[2019-11-25 08:00] VITALS: BP 124/71
--- NOTE | 2019-11-25 08:40 | NUR ---
FAMILY Patients at bedside updated on patient condition per patient.
[2019-11-25] MEDS: PANTOPRAZOLE 40 MG/10 ML VIAL INJ IV SCH (09:26)
--- NOTE | 2019-11-25 09:35 | NUR ---
MD Dr. Lei at bedside updated on patient condition with new orders, this RN to input into system. MD spoke to patient and , whom is at bedside , regarding plan of care and questions/concerns answered.
--- NOTE | 2019-11-25 09:40 | NUR ---
NG TUBE NG tube discontinued per MD order. Patient tolerated well.
--- NOTE | 2019-11-25 10:30 | NUR ---
MD Dr. Hooker at bedside updated on patient condition with new orders, MD to input into system. MD spoke to patient regarding plan of care and questions/concerns answered by MD.
[2019-11-25] MEDS ORDERED: VANCOMYCIN PER PHARMACY 0 MG IV SCH (11:15)
[2019-11-25] MEDS ORDERED: VANCOMYCIN 1GM/250ML 250 ML IV ONE (11:15)
--- NOTE | 2019-11-25 11:45 | NUR ---
FAMILY Patients has left.
[2019-11-25 12:00] VITALS: BP 127/74
[2019-11-25] MEDS ORDERED: POTASSIUM PHOSP 22MEQ(15MMOLE) in NS 100 ML IV ONE (13:00)
--- NOTE | 2019-11-25 14:44 | NUR ---
PICC line placement Patient educated on need for PICC line placement. All risks and benefits explained and all questions and concerns addressed prior to procedure. Noted past medical history and allergies with no contraindications. INR and Plt counts within acceptable range. 5fr PICC line inserted via Basilic vein using [employer] US and Tip Location System. Sterile technique with maximum barrier precautions utilized. Blood return obtained from each of two lumens and each flushed easily with NS using proper technique. PICC secured with Stat-lock; biodisc and occlusive dressing applied. Stat portable chest x-ray obtained for PICC tip placement. *Baseline Arm Circumference 28cm. Internal length 46cm. External length 0cm. PICC lot #[id number].
[2019-11-25] MEDS ORDERED: LIDOCAINE 1% (LOCAL ANESTH.) PF 5ml SDV ID ONE (14:45)
[2019-11-25 16:00] VITALS: BP 125/70
--- NOTE | 2019-11-25 16:42 | NUR ---
Okay to use PICC line Xray completed and reviewed. Okay to use PICC line by RN.
--- NOTE | 2019-11-25 17:06 | NUR ---
PATIENT REFUSED PT. JUICE SEGOVIA WAS NOTIFIED. Addendum: 11/25/19 at 1706 by ROD JEFFERSON PTT Amended: Links added.
[2019-11-25] MEDS: PPN PER PHARMACY IV NR ×10 (19:45)
[2019-11-25 20:00] VITALS: BP 147/88
--- NOTE | 2019-11-25 20:15 | NUR ---
Opening Shift Note Assumed care of patient, awake and alert. Breathing even and nonlabored, on O2NC 2LPM, occasional cough, encouraged effective coughing, No S/S of distress/SOB. Abdominal binder on, mid-line incision CDI. MELISSA to bulb suction at right abdomen, serosanguineous drainage. Bauer's tube at left abdomen connected to LIS. Marquez's catheter hung to gravity. Bed in low position, call light within reach, fall and safety precaution in place, all alarms are audible. Instructed on POC and to call for assist PRN, will continue to monitor for changes Q1hr and PRN.
[2019-11-25] MEDS: FAT EMULSION IV NR ×10 (20:54)
[2019-11-25] MEDS: [UNRECOGNIZED DRUG - OTHER] IV NR ×10 (20:54)
[2019-11-25] MEDS: POTASSIUM PHOSPHATE IV NR ×10 (20:54)
[2019-11-25] MEDS: POTASSIUM ACETATE IV NR ×10 (20:54)
[2019-11-25] MEDS: SODIUM CHLOR 0.9% PF (SALINE LOCK) 10ML VIAL/SYR IV SCH (21:41)
--- NOTE | 2019-11-25 21:44 | NUR ---
Condition update/ IS/ education Pt awake, coughed up. Encouraged deep breathing exercise and effective cough, Pt coughed out clear with tiny amount of yellowish. C/O pain at the abdomen 05/11, Morphine given as order. Education on early ambulation given, including complication post-op, Pt verbalized understanding and he said that he will comply. IS provided, Pt did 500-700ml x10, able to hold few seconds. Pt able to turn by self slowly on the bed, refused pillow to support his back and wanted to lied supine position now, encouraged turn position by self. Continue care.
[2019-11-25] MEDS ORDERED: VANCOMYCIN 1GM/250ML 250 ML IV SCH (22:00)
[2019-11-26] VITALS: BP 137/74
[2019-11-26] MEDS: D5W/SOD CHL 0.45% 1,000 ML IV SCH ×2 (00:03→16:49)
[2019-11-26] MEDS: MINERAL OIL 30 ML GT SCH ×6 (01:39→21:42)
--- NOTE | 2019-11-26 03:53 | NUR ---
Condition update Pt slept on and off through out the night. Pain controlled with Morphine IV as per order. VSS, POX 94% on O2NC 2LPM. Continue care.
[2019-11-26 04:00] VITALS: BP 136/77
--- NOTE | 2019-11-26 05:10 | NUR ---
Condition update/ output Pt woke up, coughed up moderate amount of clear secretion. Pt refused to do AM care at this time. Med-line incision CDI. MELISSA drained serosanguineous 6ml, re-applied bulb suction. Bauer's tube, drained dark green/ brown liquid and oil ~150ml. Continue care.
[2019-11-26] MEDS: PIPERACILLIN-TAZOB 3.375GM 100 ML IV SCH ×4 (05:13→23:53)
[2019-11-26] MEDS: InsuLIN REG 1unit/0.01ml Soln (100units/ml) SC SCH ×4 (05:14→23:54)
[2019-11-26] MEDS: ACCU-CHEK COMFORT CURVE STRIP VI SCH ×4 (05:14→23:53)
[2019-11-26 05:39] LABS: Basophils # (auto) 0 uL; Basophils % (auto) 0.4 % (0.0-2.0); Eosinophils # (auto) 0.1 uL; Eosinophils % (auto) 1.3 % (0.0-7.0); Hematocrit 31.1 % (41.0-53.0); Hemoglobin 10.6 g/dL (13.5-17.5); Lymphocytes % (auto) 9.4 % (10.0-50.0); Mean Corpuscular Volume 97.1 fL (80.0-100.0); Monocytes # (auto) 1.2 uL; Monocytes % (auto) 11.2 % (0.0-12.0); Neutrophils # (auto) 8.5 uL; Neutrophils % (auto) 77.7 % (37.0-80.0); Nucleated Red Blood Cells % 0.1 %; Platelet Count (auto) 246 10^3/uL (140-450); Red Cell Distribution Width 14.3 % (11.8-14.3); White Blood Cell 10.9 10^3/uL (4.4-10.8)
[2019-11-26 06:00] LABS: Magnesium 1.9 mg/dL (1.6-2.6); Phosphorus 2.3 mg/dL (2.5-4.90)
[2019-11-26 06:04] LABS: Potassium 3.3 mmol/L (3.5-5.1)
[2019-11-26 06:12] LABS: Albumin 1.9 g/dL (3.4-5.0); BUN/Creatinine Ratio 16.7; Bilirubin, Total 0.9 mg/dL (0.2-1.0); Total Protein 5.1 g/dL (6.4-8.2)
--- NOTE | 2019-11-26 06:45 | NUR ---
MELISSA drained another sanguineous 50ml after last re-applied bulb suction from 05.30am. Incision wound checked, CDI, active bleeding noted, will continue monitor and endorse to day nurse.
--- NOTE | 2019-11-26 07:45 | NUR ---
INITIAL ASSESSMENT Report received from Susy BOSE, care assumed. Patient observed resting in bed. No signs of pain or distress noted at this time. Vitals stable. Patient able to assist with repositioning. Bed locked in lowest position with call light within reach. Patient instructed to call for assistance, patient verbalized understanding. Will continue to monitor.
[2019-11-26 08:00] VITALS: BP 124/79
[2019-11-26] MEDS ORDERED: POTASSIUM PHOSP 22MEQ(15MMOLE) in NS 100 ML IV ONE (08:30)
--- NOTE | 2019-11-26 08:52 | NUR ---
Assessment Pt is a 64 yr old alert and oriented male. Pt lives at home with his , Perla Escalante, who is his emergency contact at [phone]. Pt is ambulatory and independent with ADL's. Pt's primary is Dr. Guillen, has No AD, and is employed. No HH or dialysis services prior to admit. Pt brought the the hospital due to a small bowel obstruction. Pt will d/c home upon medical clearance. Pt's will transport him home. No needs assessed. Addendum: 11/26/19 at 0856 by TREVOR WEAVER Amended: Links added.
--- NOTE | 2019-11-26 08:55 | NUR ---
PT Physical therapist at bedside. Patient positioned self on edge of bed, standing with assistance. Patient tolerated activity well, c/o pain 04/10 but refusing pain medication at this time. Patient positioned back in bed. Locked in lowest position with call light within reach.
--- NOTE | 2019-11-26 09:00 | NUR ---
MD VISIT: SURGICAL at bedside assessing patient. No new orders received at this time. MD plans to d/c balloon in bakers tube tomorrow.
--- NOTE | 2019-11-26 09:37 | NUR ---
MD VISIT: PCP at bedside assessing patient. MD reviewing medical chart, orders received.
[2019-11-26] MEDS ORDERED: POTASSIUM CHLORIDE 40 MEQ, LIDOCAINE 1% (LOCAL ANESTH.) 4 ML in SODIUM CHL 0.9% 100 ML IV ONE (09:45)
[2019-11-26] MEDS: PANTOPRAZOLE 40 MG/10 ML VIAL INJ IV SCH (10:01)
[2019-11-26] MEDS: NICOTINE 14 MG/24HR TOPICAL PATCH TD SCH (10:01)
[2019-11-26] MEDS: SODIUM CHLOR 0.9% PF (SALINE LOCK) 10ML VIAL/SYR IV SCH ×2 (10:02→21:43)
[2019-11-26] MEDS: MORPHINE SULF INJ 2 MG/ML SYRINGE 1ML IV PRN (10:35)
--- NOTE | 2019-11-26 10:35 | NUR ---
PAIN Patient c/o 7/10 abdominal/lower back pain. Patient given PRN morphine. Vitals stable.
--- NOTE | 2019-11-26 10:52 | NUR ---
BAKERS TUBE IRRIGATION Irrigation to bakers tube with mineral oil was partial success. A lot of resistance felt during irrigation and aspiration. Tube placed back to suction.
--- NOTE | 2019-11-26 11:34 | NUR ---
REPORT RECEIVED FROM KEISHA SWARTZ RN.
--- NOTE | 2019-11-26 11:49 | NUR ---
[facility] PT TRANSFER TO FLOOR Report given to Fang BOSE, care endorsed. Patient transferred to [address] via bed with all personal belongings.
--- NOTE | 2019-11-26 11:50 | NUR ---
PATIENT ARRIVED ON UNIT. ORIENTED TO THIS RN, TELE UNIT, AND CALL LIGHT. PATIENT BREATHING EVEN AND UNLABORED. CARTER HUNG BELOW BLADDER FREE OF KINKS. PATIENT EDUCATED ON FALL PRECAUTIONS AND NPO STATUS. PATIENT VERBALIZED UNDERSTANDING. CALLED ON PERSONAL CELL PHONE PATIENT UPDATED HER ON ROOM ASSIGNMENT. STAFFORD'S TUBE CONNECT TO LIS, MELISSA COMPRESSED WITH SANGUINOUS FLUID. ABDOMINAL BINDER IN PLACE, DRESSINGS CDI. WILL CONTINUE TO MONITOR.
[2019-11-26] MEDS ORDERED: SODIUM PHOSP 20MEQ(15MMOL) IN NS 100 ML IV ONE (13:00)
--- NOTE | 2019-11-26 13:10 | NUR ---
PATIENT USING YANKER AT BEDSIDE TO SUCTION THICK WHITE SPUTUM. MINIMAL AMOUNT NOTED.
--- NOTE | 2019-11-26 13:52 | NUR ---
MELISSA DRAINED 50ML SANGUINEOUS FLUID.
[2019-11-26] MEDS: HYDROmorphone HCL 2 MG/ML VL IV PRN ×2 (14:25→21:36)
--- NOTE | 2019-11-26 14:27 | NUR ---
Nutrition Follow-up Notes Wt.: 71.016 as of 11/22/19 Pt's successfully extubated (11/24/19), on oxygen via nasal cannula, asleep, no immediate family member at bedside no signs of distress noted during rounds this morning. Pt's s/p explor lap (11/22/19), currently on NPO with TPN @ 68 ml/hr providing 1056 kcal, 70 gms pro, 776 NPCs and 28% Fat. Pt with inadequate PN support aeb 66% to 82% of est caloric needs. Noted pt's to receive tonight another TPN @ 74 ml/hr to provide 1196 kcal, 80 gms pro, 876 NPCs and 34% Fat. Est. Needs : 1482-0616 kcal (25-30 kcal/kgBW), 85-106 gms protein (1.2-1.5 gm/kgBW reassessed d/t severe hypoalbuminemia, s/p surgery). Will continue to monitor pertinent labs and reassess nutrient needs prn Labs: Gluc 244 H, Cl 111 H, K 3.3 L, Ca 8.0 L, Cr 0.60 L, AST 47 H, AST 47 H, Phos 2.3 L, Tpro 5.1 L, Alb 1.9 L, HbA1c 13.5 H; Prealb 8.5 L, Trig 60 wnl Skin : No Mehran scale at this time, pt's anterior medial abdomen incision dry and intact per construction project assistant. GI: Pt's no bowel activity since 11/22/19 per construction project assistant. PES: Partially resolved: Increased nutrient needs r/t acute/chronic medical condition aeb sedated, intubated, NPO with TPN Altered nutrition related lab values r/t current/chronic medical condition aeb hyperglycemia, elev. HbA1c, low phos, hypocalcemia and mod hypoalbuminemia Will continue to monitor NPO status, PN tolerance, skin status, pertinent labs and weight trend. F/u in 2 to 3 days. Rec.: 1.) If still NPO with PN support, consider gradual increase on calories and protein to meet at least 75% of est nutrient needs. 2.) Advance gradually to oral diet when medically appropriate. 3.) Pls obtain and record pt's current actual body weight based on bed scale. 4.) Refer pt to CDE/RD for further nutrition education and weight monitoring upon discharge. 5.) Continue current plan of care.
[2019-11-26 17:00] VITALS: BP 135/83
[2019-11-26 17:33] VITALS: BP 135/83
--- NOTE | 2019-11-26 18:11 | NUR ---
PATIENT UPGRADED TO [facility]: PATIENT LAST BP ASSESSED 109/74 HR 65. RESPIRATIONS EVEN AND UNLABORED. PATIENT LEFT WITH ALL BELONGINGS. REPORT GIVEN TO KEISHA BOSE. Addendum: 11/26/19 at 1922 by JENNIFER ENRIQUEZ RN RN MISTAKEN ENTRY.
[2019-11-26] MEDS ORDERED: PANTOPRAZOLE 40 MG/10 ML VIAL INJ IV ONE (18:30)
--- NOTE | 2019-11-26 19:21 | NUR ---
CARE ENDORSED TO RUDDY BOSE.
--- NOTE | 2019-11-26 19:34 | NUR ---
Opening Shift Note Assumed care of patient, awake and alert. No S/S of distress/SOB or pain. Instructed on POC and to call for assist PRN, will continue to monitor for changes Q1hr and PRN.
[2019-11-26] MEDS: [UNRECOGNIZED DRUG - OTHER] IV NR ×10 (19:41)
[2019-11-26] MEDS: POTASSIUM ACETATE IV NR ×20 (19:41→20:07)
[2019-11-26] MEDS: FAT EMULSION IV NR ×20 (19:41→20:07)
[2019-11-26] MEDS: POTASSIUM PHOSPHATE IV NR ×20 (19:41→20:07)
[2019-11-26] MEDS: [UNRECOGNIZED DRUG - OTHER] IV NR ×10 (20:07)
[2019-11-26] MEDS: TEMAZEPAM 15 MG CAP PO SCH (21:35)
--- NOTE | 2019-11-26 21:43 | NUR ---
SPOKE WITH PHARMACY RE: MINERAL OIL SPOKE WITH PHARMACY REGARDING MINERAL OIL NOT AVAILABLE, PHARMACY STATED 'IT WOULD NOT BE AVAILABLE UNTIL 0800 ON 11/27.'
[2019-11-26 21:49] VITALS: BP 138/87
[2019-11-26] MEDS: ONDANSETRON HCL 4 MG/2 ML VIAL IV PRN (23:30)
[2019-11-27] MEDS: MINERAL OIL 30 ML GT SCH ×6 (01:54→22:05)
[2019-11-27] MEDS: ONDANSETRON HCL 4 MG/2 ML VIAL IV PRN (03:22)
[2019-11-27] MEDS: D5W/SOD CHL 0.45% 1,000 ML IV SCH (04:42)
[2019-11-27 05:03] VITALS: BP 127/81
--- NOTE | 2019-11-27 05:34 | NUR ---
PATIENT VOMITING PATIENT VOMITED UP SMALL AMOUNT, DARK GREEN. PRN NAUSEA/VOMITING MEDICATION ADMINISTERED EARLIER, PATIENT IS NOT DUE FOR N/V PRN MEDICATION AT THIS TIME. COMFORT MEASURES TAKEN.
--- NOTE | 2019-11-27 05:39 | NUR ---
MELISSA DRAINED TOTAL OF 75 ML OF SANGUINEOUS FLUID DRAINED
[2019-11-27] MEDS: ACCU-CHEK COMFORT CURVE STRIP VI SCH ×3 (06:01→17:59)
[2019-11-27] MEDS: InsuLIN REG 1unit/0.01ml Soln (100units/ml) SC SCH ×3 (06:01→18:13)
[2019-11-27] MEDS: PIPERACILLIN-TAZOB 3.375GM 100 ML IV SCH ×3 (06:01→17:58)
[2019-11-27 06:03] LABS: Basophils # (auto) 0 uL; Basophils % (auto) 0.3 % (0.0-2.0); Eosinophils # (auto) 0 uL; Eosinophils % (auto) 0.2 % (0.0-7.0); Hematocrit 36.5 % (41.0-53.0); Hemoglobin 12.1 g/dL (13.5-17.5); Lymphocytes # (auto) 0.8 uL; Lymphocytes % (auto) 5.5 % (10.0-50.0); Mean Corpuscular Hemoglobin 32.5 pg (28.0-32.0); Mean Corpuscular Hgb Conc. 33.2 g/dL (32.0-36.0); Mean Corpuscular Volume 97.9 fL (80.0-100.0); Monocytes # (auto) 1.7 uL; Monocytes % (auto) 11.3 % (0.0-12.0); Neutrophils # (auto) 12.4 uL; Neutrophils % (auto) 82.7 % (37.0-80.0); Nucleated Red Blood Cells % 0.2 %; Platelet Count (auto) 352 10^3/uL (140-450); Red Blood Cells 3.73 10^6/uL (4.5-5.90); Red Cell Distribution Width 14.3 % (11.8-14.3); White Blood Cell 14.9 10^3/uL (4.4-10.8)
[2019-11-27 06:07] LABS: Albumin 2.1 g/dL (3.4-5.0); Calcium 8.2 mg/dL (8.5-10.1); Magnesium 2.3 mg/dL (1.6-2.6); Potassium 4.1 mmol/L (3.5-5.1)
[2019-11-27 06:11] LABS: BUN/Creatinine Ratio 17.4; Bilirubin, Total 1.1 mg/dL (0.2-1.0); Phosphorus 3.4 mg/dL (2.5-4.90)
--- NOTE | 2019-11-27 07:27 | NUR ---
CARE ENDORSED CARE ENDORSED TO JARRED SINGH RN. PATIENT SLEEPING COMFORTABLY, NO S/S OF PAIN, SOB, OR DISCOMFORT.
--- NOTE | 2019-11-27 07:55 | NUR ---
Opening Shift Note Assumed care of patient, asleep but easily aroused. No S/S of distress/SOB or pain. Will follow up with instructions on POC and to call for assist PRN, will continue to monitor for changes Q1hr and PRN.
[2019-11-27] MEDS: SODIUM CHLORIDE 0.9% 1,000 ML IV SCH (08:40)
[2019-11-27 08:50] VITALS: BP 133/80
--- NOTE | 2019-11-27 09:50 | NUR ---
Ambulating Patient ambulated to bathroom. Gait steady, standby assistance provided.
[2019-11-27] MEDS: PANTOPRAZOLE 40 MG/10 ML VIAL INJ IV SCH (09:58)
[2019-11-27] MEDS: SODIUM CHLOR 0.9% PF (SALINE LOCK) 10ML VIAL/SYR IV SCH ×2 (09:59→22:05)
[2019-11-27] MEDS: NICOTINE 14 MG/24HR TOPICAL PATCH TD SCH (10:00)
--- NOTE | 2019-11-27 11:15 | NUR ---
Physical Therapy Physical therapist at bedside.
[2019-11-27] MEDS ORDERED: PROCHLORPERAZINE EDISYLATE 5 MG/ML 2ML VIAL IM PRN (11:30)
--- NOTE | 2019-11-27 12:00 | NUR ---
Hiccups and Vomiting Received verbal order from Dr. Hooker to administer metoclopramide 10mg IV Q6H. Patient has allergy to Chlorpromazine.
[2019-11-27] MEDS ORDERED: METOCLOPRAMIDE HCL 5MG/ml INJ 2ml VIAL IV SCH ×2 (12:22→13:15)
[2019-11-27 13:00] VITALS: BP 129/81
[2019-11-27] MEDS: HYDROmorphone HCL 2 MG/ML VL IV PRN ×2 (13:20→19:52)
[2019-11-27 16:40] VITALS: BP 116/69
[2019-11-27] MEDS: METOCLOPRAMIDE HCL 5MG/ml INJ 2ml VIAL IV SCH (17:58)
--- NOTE | 2019-11-27 19:56 | NUR ---
OPENING SHIFT NOTE RECEIVED REPORT FROM JARRED SINGH RN. INTRODUCED SELF TO PATIENT. PATIENT RESTING IN BED WATCHING TV AT THIS TIME. NO S/S OF DISTRESS OR SOB. PATIENT REPORTED PAIN 04/10. PRN PAIN MEDICATION GIVEN AT THIS TIME. INSTRUCTED PATIENT ON PLAN OF CARE AND TO CALL FOR ASSISTANCE NEEDED. WILL CONTINUE TO MONITOR Q1HOUR AND PRN.
[2019-11-27] MEDS: [UNRECOGNIZED DRUG - OTHER] IV NR ×10 (19:57)
[2019-11-27] MEDS: FAT EMULSION IV NR ×21 (19:57→20:19)
[2019-11-27] MEDS: POTASSIUM PHOSPHATE IV NR ×10 (19:57)
[2019-11-27] MEDS: POTASSIUM ACETATE IV NR ×21 (19:57→20:19)
[2019-11-27] MEDS: [UNRECOGNIZED DRUG - OTHER] IV NR ×11 (20:19)
[2019-11-27] MEDS: SODIUM ACETATE IV NR ×11 (20:19)
[2019-11-27 22:00] VITALS: BP 136/81
[2019-11-27] MEDS: TEMAZEPAM 15 MG CAP PO SCH (22:04)
[2019-11-28] MEDS: PIPERACILLIN-TAZOB 3.375GM 100 ML IV SCH ×3 (00:27→12:10)
[2019-11-28] MEDS: METOCLOPRAMIDE HCL 5MG/ml INJ 2ml VIAL IV SCH ×5 (00:28→23:34)
[2019-11-28] MEDS: ACCU-CHEK COMFORT CURVE STRIP VI SCH ×5 (00:34→23:45)
[2019-11-28] MEDS: InsuLIN REG 1unit/0.01ml Soln (100units/ml) SC SCH ×5 (00:35→23:45)
[2019-11-28] MEDS: MINERAL OIL 30 ML GT SCH ×5 (01:57→21:47)
--- NOTE | 2019-11-28 02:48 | NUR ---
PATIENT VOMITING PATIENT VOMITED UP MODERATE AMOUNT, DARK GREEN. COMFORT MEASURES TAKEN. ASSURED PATIENT WAS CLEAN, BIN AND TOWELS AT BEDSIDE FOR FUTURE EPISODES OF VOMITING. PATIENT WAS INSTRUCTED TO CALL IF VOMITING PERSISTS. WILL CONTINUE TO MONITOR.
[2019-11-28] MEDS: MORPHINE SULF INJ 2 MG/ML SYRINGE 1ML IV PRN ×2 (04:30→09:22)
[2019-11-28 05:00] VITALS: BP 141/86
[2019-11-28] MEDS: SODIUM CHLORIDE 0.9% 1,000 ML IV SCH (05:10)
[2019-11-28 05:42] LABS: Hematocrit 34.2 % (41.0-53.0); Hemoglobin 11.7 g/dL (13.5-17.5); Mean Corpuscular Hemoglobin 33.3 pg (28.0-32.0); Mean Corpuscular Hgb Conc. 34.1 g/dL (32.0-36.0); Mean Corpuscular Volume 97.5 fL (80.0-100.0); Platelet Count (auto) 403 10^3/uL (140-450); Red Blood Cells 3.51 10^6/uL (4.5-5.90); Red Cell Distribution Width 13.9 % (11.8-14.3); White Blood Cell 15.4 10^3/uL (4.4-10.8)
[2019-11-28 06:00] LABS: Band Neutrophils % (manual) 0; Basophils % (manual) 0 (0.0-2.0); Blast Cells 0; Metamyelocytes % 0; Myelocytes % 0; Promyelocytes % 0; Reactive Lymphocytes 0
[2019-11-28 06:05] LABS: Albumin 2.1 g/dL (3.4-5.0); Calcium 8.3 mg/dL (8.5-10.1); Magnesium 3.4 mg/dL (1.6-2.6); Potassium 3.8 mmol/L (3.5-5.1)
[2019-11-28 06:11] LABS: BUN/Creatinine Ratio 15.5; Bilirubin, Total 0.9 mg/dL (0.2-1.0); Phosphorus 3.1 mg/dL (2.5-4.90); Total Protein 5.8 g/dL (6.4-8.2)
[2019-11-28 07:04] LABS: Eosinophils % (manual) 2 (0-7); Lymphocytes % (manual) 10 (10.0-50.0); Monocytes % (manual) 9 (0-12)
--- NOTE | 2019-11-28 07:27 | NUR ---
CARE ENDORSED CARE ENDORSED TO JARRED SINGH RN. PATIENT SLEEPING COMFORTABLY, NO S/S OF PAIN, SOB, OR DISCOMFORT.
[2019-11-28] MEDS: PANTOPRAZOLE 40 MG/10 ML VIAL INJ IV SCH (09:22)
[2019-11-28] MEDS: ONDANSETRON HCL 4 MG/2 ML VIAL IV PRN (09:22)
[2019-11-28] MEDS: NICOTINE 14 MG/24HR TOPICAL PATCH TD SCH (09:23)
[2019-11-28] MEDS: SODIUM CHLOR 0.9% PF (SALINE LOCK) 10ML VIAL/SYR IV SCH ×2 (09:23→21:47)
[2019-11-28 09:31] VITALS: BP 137/86
--- NOTE | 2019-11-28 10:02 | NUR ---
Surgeon Rounding Dressing to abdomen removed by surgeon. Left open to air.
--- NOTE | 2019-11-28 11:00 | NUR ---
Tiwari catheter dc'd Order to discontinue tiwari catheter. Tiwari dc'd with clean technique following deflation of balloon. Patient tolerated well with no complaints of pain. Continue care.
[2019-11-28 13:00] VITALS: BP 129/80
[2019-11-28 16:44] VITALS: BP 135/79
[2019-11-28] MEDS: levoFLOXacin 750MG 150 ML IV SCH (18:03)
[2019-11-28] MEDS: INSULIN LANTUS (GLARGINE) 1 /0.01ml (100units/ml) SC SCH (18:05)
--- NOTE | 2019-11-28 19:30 | NUR ---
assumed care, pt. awake, no c/o n/v and abdominal pain, not in distress.
--- NOTE | 2019-11-28 19:45 | NUR ---
MELISSA Drain 45 cc's emptied.
[2019-11-28] MEDS: POTASSIUM ACETATE IV NR ×22 (19:49→20:30)
[2019-11-28] MEDS: FAT EMULSION IV NR ×22 (19:49→20:30)
[2019-11-28] MEDS: SODIUM ACETATE IV NR ×22 (19:49→20:30)
[2019-11-28] MEDS: [UNRECOGNIZED DRUG - OTHER] IV NR ×11 (19:49)
[2019-11-28] MEDS: [UNRECOGNIZED DRUG - OTHER] IV NR ×11 (20:30)
[2019-11-28] MEDS: TEMAZEPAM 15 MG CAP PO SCH (21:47)
[2019-11-28] MEDS: metroNIDAZOLE 500MG/100ML 100 ML IV SCH (21:48)
[2019-11-28 22:00] VITALS: BP 131/81
[2019-11-29] MEDS: SODIUM CHLORIDE 0.9% 1,000 ML IV SCH ×2 (00:30→20:30)
[2019-11-29] MEDS: MORPHINE SULF INJ 2 MG/ML SYRINGE 1ML IV PRN ×3 (00:48→23:42)
[2019-11-29] MEDS: MINERAL OIL 30 ML GT SCH ×6 (01:59→21:28)
[2019-11-29 05:00] VITALS: BP 127/77
[2019-11-29] MEDS: metroNIDAZOLE 500MG/100ML 100 ML IV SCH ×3 (05:21→21:29)
[2019-11-29] MEDS: METOCLOPRAMIDE HCL 5MG/ml INJ 2ml VIAL IV SCH ×6 (05:21→23:32)
[2019-11-29] MEDS: InsuLIN REG 1unit/0.01ml Soln (100units/ml) SC SCH ×4 (06:17→23:33)
[2019-11-29] MEDS: ACCU-CHEK COMFORT CURVE STRIP VI SCH ×4 (06:17→23:33)
[2019-11-29 06:29] LABS: Hemoglobin 11.5 g/dL (13.5-17.5); Red Cell Distribution Width 13.8 % (11.8-14.3); White Blood Cell 16.2 10^3/uL (4.4-10.8)
[2019-11-29 06:32] LABS: Hematocrit 34.3 % (41.0-53.0); Mean Corpuscular Hemoglobin 32.6 pg (28.0-32.0); Mean Corpuscular Hgb Conc. 33.6 g/dL (32.0-36.0); Mean Corpuscular Volume 96.9 fL (80.0-100.0); Platelet Count (auto) 466 10^3/uL (140-450); Red Blood Cells 3.54 10^6/uL (4.5-5.90)
[2019-11-29 06:43] LABS: Potassium 3.7 mmol/L (3.5-5.1)
[2019-11-29 06:49] LABS: Basophils % (manual) 0 (0.0-2.0); Blast Cells 0; Metamyelocytes % 0; Myelocytes % 0; Promyelocytes % 0; Reactive Lymphocytes 0
[2019-11-29 06:51] LABS: Albumin 2.1 g/dL (3.4-5.0); Bilirubin, Total 0.9 mg/dL (0.2-1.0); Calcium 8.2 mg/dL (8.5-10.1); Magnesium 1.8 mg/dL (1.6-2.6); Total Protein 5.8 g/dL (6.4-8.2)
[2019-11-29 07:40] LABS: Band Neutrophils % (manual) 2; Eosinophils % (manual) 2 (0-7); Lymphocytes % (manual) 17 (10.0-50.0); Monocytes % (manual) 15 (0-12)
--- NOTE | 2019-11-29 07:55 | NUR ---
Opening Shift Note Assumed care of patient, awake and alert laying in bed. No S/S of distress/SOB or pain. Instructed on POC and to call for assist PRN, will continue to monitor for changes Q1hr and PRN. Patient stated that he will take a shower this AM, permission already given by
[2019-11-29 09:00] VITALS: BP 120/84
[2019-11-29] MEDS: NICOTINE 14 MG/24HR TOPICAL PATCH TD SCH (10:00)
--- NOTE | 2019-11-29 10:00 | NUR ---
Pt stated he had already engaged in ambulation and requested PT tx after lunch today. Addendum: 11/29/19 at 1253 by Kennedy Tay PTA Amended: Links added.
[2019-11-29] MEDS: PANTOPRAZOLE 40 MG/10 ML VIAL INJ IV SCH (10:27)
[2019-11-29] MEDS: SODIUM CHLOR 0.9% PF (SALINE LOCK) 10ML VIAL/SYR IV SCH ×2 (10:27→21:29)
--- NOTE | 2019-11-29 12:45 | NUR ---
Hospitalist Rounded Verbal order received to administer Reglan 30 minutes before each meal and at bedtime. Pharmacist will be notified of order change.
[2019-11-29 12:48] VITALS: BP 124/78
[2019-11-29] MEDS: levoFLOXacin 750MG 150 ML IV SCH (16:14)
[2019-11-29 16:30] VITALS: BP 131/83
--- NOTE | 2019-11-29 17:50 | NUR ---
MELISSA Drain 25cc emptied.
[2019-11-29] MEDS: INSULIN LANTUS (GLARGINE) 1 /0.01ml (100units/ml) SC SCH (18:03)
--- NOTE | 2019-11-29 18:10 | NUR ---
Patient out of bed at this time
--- NOTE | 2019-11-29 19:45 | NUR ---
assumed care, pt. awake, no c/o pain, no sob.
[2019-11-29] MEDS: [UNRECOGNIZED DRUG - OTHER] IV NR ×11 (19:57)
[2019-11-29] MEDS: FAT EMULSION IV NR ×11 (19:57)
[2019-11-29] MEDS: SODIUM ACETATE IV NR ×11 (19:57)
[2019-11-29] MEDS: POTASSIUM ACETATE IV NR ×11 (19:57)
[2019-11-29] MEDS ORDERED: TPN PER PHARMACY IV NR ×11 (20:00)
[2019-11-29] MEDS: TEMAZEPAM 15 MG CAP PO SCH (21:30)
[2019-11-29 22:00] VITALS: BP 122/79
[2019-11-30] MEDS: MINERAL OIL 30 ML GT SCH ×6 (01:36→21:38)
[2019-11-30] MEDS: SODIUM CHLORIDE 0.9% 1,000 ML IV SCH (03:10)
[2019-11-30 05:00] VITALS: BP 130/81
[2019-11-30 05:35] LABS: Eosinophils # (auto) 0.1 uL; Eosinophils % (auto) 0.4 % (0.0-7.0); Hematocrit 36.9 % (41.0-53.0); Monocytes # (auto) 2.2 uL
[2019-11-30] MEDS: metroNIDAZOLE 500MG/100ML 100 ML IV SCH ×3 (05:38→21:36)
[2019-11-30] MEDS: METOCLOPRAMIDE HCL 5MG/ml INJ 2ml VIAL IV SCH ×5 (05:38→21:37)
[2019-11-30 05:39] LABS: Basophils # (auto) 0.1 uL; Basophils % (auto) 0.3 % (0.0-2.0); Hemoglobin 12.4 g/dL (13.5-17.5); Lymphocytes # (auto) 1.1 uL; Lymphocytes % (auto) 5.9 % (10.0-50.0); Mean Corpuscular Hgb Conc. 33.5 g/dL (32.0-36.0); Mean Corpuscular Volume 98.3 fL (80.0-100.0); Monocytes % (auto) 11.6 % (0.0-12.0); Neutrophils # (auto) 15.5 uL; Neutrophils % (auto) 81.8 % (37.0-80.0); Nucleated Red Blood Cells % 0.3 %; Platelet Count (auto) 609 10^3/uL (140-450); Red Blood Cells 3.75 10^6/uL (4.5-5.90); Red Cell Distribution Width 13.9 % (11.8-14.3)
[2019-11-30] MEDS: InsuLIN REG 1unit/0.01ml Soln (100units/ml) SC SCH ×4 (05:39→23:49)
[2019-11-30] MEDS: ACCU-CHEK COMFORT CURVE STRIP VI SCH ×4 (05:39→23:49)
[2019-11-30] MEDS: MORPHINE SULF INJ 2 MG/ML SYRINGE 1ML IV PRN ×3 (05:53→14:38)
[2019-11-30 06:15] LABS: Albumin 2.3 g/dL (3.4-5.0); Calcium 8.3 mg/dL (8.5-10.1); Magnesium 1.8 mg/dL (1.6-2.6); Potassium 3.7 mmol/L (3.5-5.1)
[2019-11-30 06:21] LABS: BUN/Creatinine Ratio 15.4; Bilirubin, Total 0.9 mg/dL (0.2-1.0); Phosphorus 2.6 mg/dL (2.5-4.90); Pre Albumin 11.9 mg/dL (20.0-40.0); Total Protein 6.3 g/dL (6.4-8.2)
[2019-11-30 09:00] VITALS: BP 136/83
[2019-11-30] MEDS: NICOTINE 14 MG/24HR TOPICAL PATCH TD SCH (09:07)
[2019-11-30] MEDS: PANTOPRAZOLE 40 MG/10 ML VIAL INJ IV SCH (09:07)
[2019-11-30] MEDS: SODIUM CHLOR 0.9% PF (SALINE LOCK) 10ML VIAL/SYR IV SCH ×2 (09:07→21:37)
--- NOTE | 2019-11-30 10:45 | NUR ---
Pt declined PT tx stating he has been vomiting which resulted in an increase of his abdominal pain and generally feeling miserable. Addendum: 11/30/19 at 1218 by Kennedy Tay SHOT BLASTER Amended: Links added.
[2019-11-30] MEDS: PIPERACILLIN-TAZOB 3.375GM 100 ML IV SCH ×3 (12:50→23:48)
[2019-11-30 13:00] VITALS: BP 132/74
[2019-11-30] MEDS: guaiFENesin 200 MG/10 ML UD PO PRN ×2 (16:43→21:51)
[2019-11-30 17:00] VITALS: BP 122/77
[2019-11-30] MEDS: levoFLOXacin 750MG 150 ML IV SCH (18:05)
[2019-11-30] MEDS: INSULIN LANTUS (GLARGINE) 1 /0.01ml (100units/ml) SC SCH (18:05)
--- NOTE | 2019-11-30 19:00 | NUR ---
MELISSA Drain 25cc drained.
[2019-11-30] MEDS ORDERED: TPN PER PHARMACY IV NR ×11 (20:00)
--- NOTE | 2019-11-30 20:00 | NUR ---
Opening Shift Note Assumed care of patient, awake and alert. No S/S of distress/SOB or pain. Instructed on POC and to call for assist PRN, will continue to monitor for changes Q1hr and PRN.Family at bedside.
[2019-11-30 20:13] LABS: Urine Bacteria NONE SEEN /hpf (None Seen); Urine Blood Negative /uL (Negative); Urine Specific Gravity 1.025 (1.001-1.035); Urine WBC 1 /hpf (0 - 3)
[2019-11-30] MEDS: TEMAZEPAM 15 MG CAP PO SCH (21:37)
[2019-11-30 22:00] VITALS: BP 135/83
[2019-12-01] MEDS: HYDROmorphone HCL 2 MG/ML VL IV PRN ×2 (00:35→06:06)
[2019-12-01] MEDS: MINERAL OIL 30 ML GT SCH ×5 (01:36→18:01)
[2019-12-01] MEDS: guaiFENesin 200 MG/10 ML UD PO PRN ×3 (04:32→23:48)
[2019-12-01 05:00] VITALS: BP 129/89
[2019-12-01] MEDS: metroNIDAZOLE 500MG/100ML 100 ML IV SCH ×3 (05:41→22:30)
[2019-12-01] MEDS: InsuLIN REG 1unit/0.01ml Soln (100units/ml) SC SCH ×3 (05:42→18:00)
[2019-12-01] MEDS: ACCU-CHEK COMFORT CURVE STRIP VI SCH ×3 (05:43→18:02)
[2019-12-01] MEDS: PIPERACILLIN-TAZOB 3.375GM 100 ML IV SCH ×3 (06:06→19:30)
[2019-12-01 06:15] LABS: Albumin 2.3 g/dL (3.4-5.0); Calcium 8.2 mg/dL (8.5-10.1); Magnesium 1.8 mg/dL (1.6-2.6)
[2019-12-01 06:19] LABS: BUN/Creatinine Ratio 14.3; Bilirubin, Total 1.4 mg/dL (0.2-1.0); Phosphorus 2.9 mg/dL (2.5-4.90); Total Protein 6.2 g/dL (6.4-8.2)
--- NOTE | 2019-12-01 07:07 | NUR ---
Report given to Drake Hidalgo, patient is resting.
[2019-12-01] MEDS: METOCLOPRAMIDE HCL 5MG/ml INJ 2ml VIAL IV SCH ×4 (08:12→23:10)
[2019-12-01] MEDS: PANTOPRAZOLE 40 MG/10 ML VIAL INJ IV SCH (08:13)
[2019-12-01] MEDS: SODIUM CHLOR 0.9% PF (SALINE LOCK) 10ML VIAL/SYR IV SCH ×2 (08:13→23:10)
[2019-12-01] MEDS: NICOTINE 14 MG/24HR TOPICAL PATCH TD SCH (08:27)
[2019-12-01 08:33] VITALS: BP 110/74
[2019-12-01] MEDS ORDERED: METOPROLOL TARTRATE 50 MG TAB PO ONE (10:15)
[2019-12-01] MEDS: MORPHINE SULF INJ 2 MG/ML SYRINGE 1ML IV PRN ×3 (11:03→20:12)
[2019-12-01] MEDS: SODIUM CHLORIDE 0.9% 1,000 ML IV SCH (12:30)
[2019-12-01 12:41] VITALS: BP 109/76
--- NOTE | 2019-12-01 13:13 | NUR ---
PT Patient refused to be OOB during PT visit. Addendum: 12/01/19 at 1313 by KRISTEL BURGER PTT Amended: Links added.
[2019-12-01 15:14] LABS: Calcium 7.9 mg/dL (8.5-10.1); Potassium 4.1 mmol/L (3.5-5.1)
[2019-12-01 15:19] LABS: BUN/Creatinine Ratio 16.3; Bilirubin, Total 0.9 mg/dL (0.2-1.0); Total Protein 5.8 g/dL (6.4-8.2)
[2019-12-01 16:29] VITALS: BP 110/76
[2019-12-01] MEDS: levoFLOXacin 750MG 150 ML IV SCH (17:46)
[2019-12-01] MEDS: INSULIN LANTUS (GLARGINE) 1 /0.01ml (100units/ml) SC SCH (18:02)
--- NOTE | 2019-12-01 19:30 | NUR ---
RECEIVED REPORT FROM DAY RN POC REVIEWED
[2019-12-01] MEDS ORDERED: TPN PER PHARMACY IV NR ×11 (20:00)
[2019-12-01 22:00] VITALS: BP 100/66
[2019-12-01] MEDS: METOPROLOL TARTRATE 50 MG TAB PO SCH (22:00)
[2019-12-01] MEDS: TEMAZEPAM 15 MG CAP PO SCH (22:29)
--- NOTE | 2019-12-01 23:30 | NUR ---
HOSPITALIST PAGED PT SOB DIFFICULTY COUGHING NOT ABLE TO CLEAR SECRETIONS, LUNG SOUNDS WET
[2019-12-01] MEDS ORDERED: FUROSEMIDE 40 MG/4 ML VIAL IV ONE (23:45)
[2019-12-02] MEDS: IPRATROPIUM BROM 0.5 MG/2.5ML INH SOL NEB PRN ×3 (00:05→17:46)
[2019-12-02] MEDS: ALBUTEROL SULF 2.5 MG/0.5ML(0.5%) NEB SOLN NEB PRN ×3 (00:05→17:46)
[2019-12-02] MEDS: ACCU-CHEK COMFORT CURVE STRIP VI SCH ×4 (00:08→18:08)
--- NOTE | 2019-12-02 00:15 | NUR ---
CHEST XRAY DONE, LASIX 40 MG IV GIVEN ORDERED B/P 119/78, HR 120, RR 24, SATS 96%
[2019-12-02] MEDS: PIPERACILLIN-TAZOB 3.375GM 100 ML IV SCH ×4 (01:32→20:48)
[2019-12-02] MEDS: MINERAL OIL 30 ML GT SCH ×7 (01:43→23:14)
[2019-12-02 03:29] VITALS: BP 119/78
--- NOTE | 2019-12-02 03:43 | NUR ---
850 VOIDED RESP EVEN AND UNLABORED PT RESTING COMFORTABLE
[2019-12-02 05:00] VITALS: BP 106/73
[2019-12-02] MEDS: InsuLIN REG 1unit/0.01ml Soln (100units/ml) SC SCH ×4 (06:00→18:08)
[2019-12-02 06:48] LABS: Magnesium 1.8 mg/dL (1.6-2.6)
[2019-12-02] MEDS: metroNIDAZOLE 500MG/100ML 100 ML IV SCH ×2 (06:50→16:14)
[2019-12-02 06:51] LABS: Phosphorus 3.6 mg/dL (2.5-4.90)
[2019-12-02] MEDS: MORPHINE SULF INJ 2 MG/ML SYRINGE 1ML IV PRN ×3 (07:10→18:48)
[2019-12-02] MEDS: METOPROLOL TARTRATE 50 MG TAB PO SCH ×2 (08:31→22:00)
[2019-12-02] MEDS: PANTOPRAZOLE 40 MG/10 ML VIAL INJ IV SCH (08:32)
[2019-12-02] MEDS: METOCLOPRAMIDE HCL 5MG/ml INJ 2ml VIAL IV SCH ×4 (08:32→23:14)
[2019-12-02] MEDS: SODIUM CHLORIDE 0.9% 1,000 ML IV SCH (08:33)
[2019-12-02] MEDS: SODIUM CHLOR 0.9% PF (SALINE LOCK) 10ML VIAL/SYR IV SCH ×2 (08:33→23:15)
[2019-12-02] MEDS: NICOTINE 14 MG/24HR TOPICAL PATCH TD SCH (08:33)
[2019-12-02 09:00] VITALS: BP 102/71
--- NOTE | 2019-12-02 11:18 | NUR ---
Respiratory note: ASSESSED PT FOR PRN TX PT WAS AWAKE AND ALERT, NO RESP DISTRESS NOTED. HR 107, RR 20, SPO2 92% ON ROOM AIR. PATIENT KNOWS TO HAVE RT PAGED IF TX IS NEEDED.
[2019-12-02 11:25] LABS: Alanine Aminotransferase 14 U/L (16-61); Alkaline Phosphatase 109 U/L (45-117); Anion Gap 9 (5-15); Aspartate Aminotransferase 20 U/L (15-37); Blood Urea Nitrogen 15 mg/dL (7-18); Calcium 6.8 mg/dL (8.5-10.1); Carbon Dioxide 25 mmol/L (21-32); Chloride 98 mmol/L (98-107); GFR African American 135 mL/min; GFR Non-African American 112 mL/min; Glucose 122 mg/dL (74-106); Potassium 4.7 mmol/L (3.5-5.1); Sodium 132 mmol/L (136-145)
[2019-12-02 11:26] LABS: Albumin 1.9 g/dL (3.4-5.0); Bilirubin, Total 0.8 mg/dL (0.2-1.0); Total Protein 5.4 g/dL (6.4-8.2)
[2019-12-02 12:34] LABS: Mean Corpuscular Hgb Conc. 31.4 g/dL (32.0-36.0)
[2019-12-02 12:37] LABS: Hematocrit 38.9 % (41.0-53.0); Hemoglobin 12.2 g/dL (13.5-17.5); Mean Corpuscular Hemoglobin 33.2 pg (28.0-32.0); Mean Corpuscular Volume 105.6 fL (80.0-100.0); Platelet Count (auto) 582 10^3/uL (140-450); Red Blood Cells 3.69 10^6/uL (4.5-5.90); Red Cell Distribution Width 16.6 % (11.8-14.3); White Blood Cell 27.7 10^3/uL (4.4-10.8)
[2019-12-02 12:40] VITALS: BP 98/67
[2019-12-02 12:41] LABS: Basophils % (manual) 0 (0.0-2.0); Blast Cells 0; Eosinophils % (manual) 0 (0-7); Metamyelocytes % 0; Myelocytes % 0; Promyelocytes % 0; Reactive Lymphocytes 0
[2019-12-02 13:35] LABS: Band Neutrophils % (manual) 4; Lymphocytes % (manual) 7 (10.0-50.0); Monocytes % (manual) 7 (0-12)
[2019-12-02] MEDS ORDERED: POTASSIUM EFFERVESENT TAB 25 MEQ PO ONE (15:30)
[2019-12-02] MEDS ORDERED: FUROSEMIDE 40 MG/4 ML VIAL IV ONE (15:30)
[2019-12-02 17:00] VITALS: BP 106/68
[2019-12-02] MEDS: levoFLOXacin 750MG 150 ML IV SCH (18:07)
[2019-12-02] MEDS: Glucerna Carbsteady SHAKE Vanilla 8oz PO SCH (18:07)
[2019-12-02] MEDS: INSULIN LANTUS (GLARGINE) 1 /0.01ml (100units/ml) SC SCH (18:08)
--- NOTE | 2019-12-02 19:47 | NUR ---
Opening Shift Note Received report and assumed care of patient. Patient is awake and alert. No signs or symptoms of distress noted. Instructed patient on plan of care and to call for assistance as needed. Will continue to monitor.
[2019-12-02] MEDS: PPN PER PHARMACY IV NR ×12 (20:47)
[2019-12-02 21:59] VITALS: BP 97/64
[2019-12-02] MEDS: TEMAZEPAM 15 MG CAP PO SCH (23:15)
[2019-12-03] MEDS: metroNIDAZOLE 500MG/100ML 100 ML IV SCH ×3 (00:20→17:25)
[2019-12-03] MEDS: ACCU-CHEK COMFORT CURVE STRIP VI SCH ×4 (00:27→17:26)
[2019-12-03] MEDS: InsuLIN REG 1unit/0.01ml Soln (100units/ml) SC SCH ×4 (00:47→17:26)
[2019-12-03] MEDS: PIPERACILLIN-TAZOB 3.375GM 100 ML IV SCH ×4 (02:05→22:49)
[2019-12-03] MEDS: MINERAL OIL 30 ML GT SCH ×7 (02:06→22:00)
[2019-12-03] MEDS: SODIUM CHLORIDE 0.9% 1,000 ML IV SCH (04:30)
[2019-12-03] MEDS: MORPHINE SULF INJ 2 MG/ML SYRINGE 1ML IV PRN ×3 (05:03→21:17)
[2019-12-03 05:22] VITALS: BP 100/72
[2019-12-03] MEDS ORDERED: FUROSEMIDE 40 MG/4 ML VIAL IV SCH (06:00)
[2019-12-03 06:30] LABS: Hematocrit 33.5 % (41.0-53.0); Hemoglobin 11.2 g/dL (13.5-17.5); Mean Corpuscular Hemoglobin 32.7 pg (28.0-32.0); Mean Corpuscular Hgb Conc. 33.4 g/dL (32.0-36.0); Mean Corpuscular Volume 97.7 fL (80.0-100.0); Platelet Count (auto) 503 10^3/uL (140-450); Red Blood Cells 3.42 10^6/uL (4.5-5.90); Red Cell Distribution Width 14.7 % (11.8-14.3); White Blood Cell 12.5 10^3/uL (4.4-10.8)
[2019-12-03 06:38] LABS: Basophils % (manual) 0 (0.0-2.0); Blast Cells 0; Eosinophils % (manual) 0 (0-7); Metamyelocytes % 0; Myelocytes % 0; Promyelocytes % 0; Reactive Lymphocytes 0
--- NOTE | 2019-12-03 06:40 | NUR ---
MELISSA Drain Drained 10cc.
[2019-12-03 06:41] LABS: Albumin 1.7 g/dL (3.4-5.0); Calcium 7.3 mg/dL (8.5-10.1); Potassium 3.8 mmol/L (3.5-5.1)
[2019-12-03 06:47] LABS: BUN/Creatinine Ratio 21.8; Bilirubin, Total 0.6 mg/dL (0.2-1.0); Total Protein 5.3 g/dL (6.4-8.2)
[2019-12-03 07:26] LABS: Band Neutrophils % (manual) 2; Lymphocytes % (manual) 6 (10.0-50.0); Monocytes % (manual) 5 (0-12)
[2019-12-03] MEDS: METOCLOPRAMIDE HCL 5MG/ml INJ 2ml VIAL IV SCH ×4 (08:27→22:50)
[2019-12-03] MEDS: Glucerna Carbsteady SHAKE Vanilla 8oz PO SCH ×3 (08:28→17:25)
--- NOTE | 2019-12-03 08:40 | NUR ---
RESP PRN MED NEB TX NOT INDICATED AT THIS TIME. NO SIGNS OR SYMPTOMS OF RESPIRATORY DISTRESS NOTED. HR 116, RR 16, SPO2 94% ON 5L OXYMIZER, BS CLEAR. PT INFORMED TO HIT CALL LIGHT IF FEELING SOB OR WHEEZING
[2019-12-03 09:00] VITALS: BP 100/67
[2019-12-03] MEDS: NICOTINE 14 MG/24HR TOPICAL PATCH TD SCH (10:00)
[2019-12-03] MEDS: PANTOPRAZOLE 40 MG/10 ML VIAL INJ IV SCH (10:08)
[2019-12-03] MEDS: SODIUM CHLOR 0.9% PF (SALINE LOCK) 10ML VIAL/SYR IV SCH ×2 (10:08→22:50)
[2019-12-03] MEDS: METOPROLOL TARTRATE 25 MG TAB PO SCH ×2 (10:09→22:54)
[2019-12-03 12:15] LABS: CRP High Sensitivity 9.21 mg/dL (< 0.3)
--- NOTE | 2019-12-03 12:54 | NUR ---
MD ALYCIA RAMIREZ AT BEDSIDE. REQUESTION FOR MD FULLER TO RE-EVALUATE DRAIN PLACEMENT FOR PATIENT. ALL QUESTIONS AND CONCERNS ADDRESSED AT THIS TIME.
[2019-12-03 13:00] VITALS: BP 97/69
--- NOTE | 2019-12-03 15:00 | NUR ---
PAGED RESPIRATORY RE: PT REQUEST FOR BREATHING TREATMENT
[2019-12-03] MEDS: ALBUTEROL SULF 2.5 MG/0.5ML(0.5%) NEB SOLN NEB PRN ×2 (15:12→19:31)
[2019-12-03] MEDS: IPRATROPIUM BROM 0.5 MG/2.5ML INH SOL NEB PRN ×2 (15:12→19:31)
[2019-12-03 17:00] VITALS: BP 102/70
[2019-12-03] MEDS: INSULIN LANTUS (GLARGINE) 1 /0.01ml (100units/ml) SC SCH (17:26)
[2019-12-03] MEDS ORDERED: FUROSEMIDE 20 MG/2 ML VIAL IV SCH (18:00)
[2019-12-03] MEDS ORDERED: SODIUM CHLORIDE 0.9% 1,000 ML IV ONE (18:15)
[2019-12-03] MEDS: levoFLOXacin 750MG 150 ML IV SCH (18:17)
[2019-12-03 19:24] LABS: Creatinine, Urine 68 mg/dL (30.0-125.0); Sodium Urine 53 mmol/L (40-220)
[2019-12-03] MEDS: PPN PER PHARMACY IV NR ×12 (19:38)
--- NOTE | 2019-12-03 19:41 | NUR ---
Opening Shift Note Received report and assumed care of patient. Patient is awake and alert. No signs or symptoms of distress noted. Instructed patient on plan of care and to call for assistance as needed. at bedside. Will continue to monitor.
[2019-12-03] MEDS: TPN PER PHARMACY IV NR ×12 (20:18)
[2019-12-03 22:00] VITALS: BP 98/67
[2019-12-03] MEDS: TEMAZEPAM 15 MG CAP PO SCH (22:50)
[2019-12-04] MEDS: IPRATROPIUM BROM 0.5 MG/2.5ML INH SOL NEB PRN ×3 (00:11→11:45)
[2019-12-04] MEDS: ALBUTEROL SULF 2.5 MG/0.5ML(0.5%) NEB SOLN NEB PRN ×3 (00:11→11:45)
[2019-12-04] MEDS: SODIUM CHLORIDE 0.9% 1,000 ML IV SCH ×2 (00:32→22:48)
[2019-12-04] MEDS: ACCU-CHEK COMFORT CURVE STRIP VI SCH ×4 (00:32→17:41)
[2019-12-04] MEDS: InsuLIN REG 1unit/0.01ml Soln (100units/ml) SC SCH ×4 (00:33→17:41)
[2019-12-04] MEDS: guaiFENesin 200 MG/10 ML UD PO PRN (00:33)
[2019-12-04] MEDS: MINERAL OIL 30 ML GT SCH ×6 (02:00→22:00)
[2019-12-04] MEDS: metroNIDAZOLE 500MG/100ML 100 ML IV SCH ×2 (02:06→06:48)
[2019-12-04] MEDS: HYDROmorphone HCL 2 MG/ML VL IV PRN (02:59)
[2019-12-04] MEDS ORDERED: methylPREDNISolone SOD SUCC 125 MG/2 ML VL ONE (03:08)
[2019-12-04] MEDS: PIPERACILLIN-TAZOB 3.375GM 100 ML IV SCH ×4 (03:12→20:26)
[2019-12-04] MEDS ORDERED: methylPREDNISolone SOD SUCC 125 MG/2 ML VL IV ONE (03:15)
[2019-12-04 05:00] VITALS: BP 113/76
[2019-12-04 06:38] LABS: Hematocrit 32.5 % (41.0-53.0); Hemoglobin 10.9 g/dL (13.5-17.5); Mean Corpuscular Hgb Conc. 33.6 g/dL (32.0-36.0)
[2019-12-04 06:42] LABS: Mean Corpuscular Hemoglobin 32.9 pg (28.0-32.0); Mean Corpuscular Volume 97.9 fL (80.0-100.0); Platelet Count (auto) 516 10^3/uL (140-450); Red Blood Cells 3.32 10^6/uL (4.5-5.90); Red Cell Distribution Width 14.9 % (11.8-14.3)
[2019-12-04 06:51] LABS: Albumin 1.6 g/dL (3.4-5.0); Calcium 7.5 mg/dL (8.5-10.1); Potassium 4.1 mmol/L (3.5-5.1)
[2019-12-04 06:54] LABS: BUN/Creatinine Ratio 25.8; Bilirubin, Total 0.5 mg/dL (0.2-1.0); Phosphorus 2.7 mg/dL (2.5-4.90); Total Protein 5.3 g/dL (6.4-8.2)
[2019-12-04 07:04] LABS: Basophils % (manual) 0 (0.0-2.0); Blast Cells 0; Eosinophils % (manual) 0 (0-7); Metamyelocytes % 0; Myelocytes % 0; Promyelocytes % 0; Reactive Lymphocytes 0
[2019-12-04] MEDS: Glucerna Carbsteady SHAKE Vanilla 8oz PO SCH ×3 (08:00→18:00)
--- NOTE | 2019-12-04 08:00 | NUR ---
RECEIVED PATIENT ALERT AND ORIENTED X4, NOT IN DISTRESS, CLEAR LUNG SOUNDS IN BILATERAL LUNG LOBED, RR=18 SAT=98%, COUGHING AND DEEP BREATHING WADS ENCOURAGED, INCENTIVE SPIROMETER AT BED SIDE, EDUCATION AND ENCOURAGED DEMONSTRATED WELL, S TACH ON TELE MONITOR R=105, DENIED CHEST PAIN AND SOB AT THIS MOMENT, ABDOMEN SOFT WITH ACTIVE BS,RT. ABDOMEN MELISSA DRAIN TUBE IN PLACE PATENT AND INTACT, SITE COVERED WITH DRY AND INTACT DRESSING, DRAINING SEROSANGUINEOUS DRAIN NOTED, LTRosendo STAFFORD DRAIN TUBE IN PLACE PATENT AND INTACT, SITE COVERED WITH DRY AND INTACT DRESSING, LIGHT BROWN DRAIN NOTED, LAST BM=12/03/19 REPORTED, SKIN INTACT WARM TO TOUCH, RESTING ON BED AT THIS MOMENT, HEAD OF BED ELEVATED, BED ON LOW POSITION, RAILS UP X2, CALL LIGHT ON REACH, PENDING SURGICAL CONSULT, WILL CONTINUE MONITORING.
[2019-12-04 08:21] LABS: Band Neutrophils % (manual) 6; Lymphocytes % (manual) 3 (10.0-50.0); Monocytes % (manual) 7 (0-12)
[2019-12-04 08:51] VITALS: BP 105/67
[2019-12-04] MEDS: METOCLOPRAMIDE HCL 5MG/ml INJ 2ml VIAL IV SCH ×4 (09:03→22:47)
[2019-12-04] MEDS: NICOTINE 14 MG/24HR TOPICAL PATCH TD SCH ×2 (10:00→10:14)
[2019-12-04] MEDS: PANTOPRAZOLE 40 MG/10 ML VIAL INJ IV SCH (10:12)
[2019-12-04] MEDS: SODIUM CHLOR 0.9% PF (SALINE LOCK) 10ML VIAL/SYR IV SCH ×2 (10:13→22:47)
[2019-12-04] MEDS: METOPROLOL TARTRATE 25 MG TAB PO SCH ×2 (10:14→22:48)
[2019-12-04 13:00] VITALS: BP 102/59
[2019-12-04] MEDS ORDERED: FUROSEMIDE 40 MG/4 ML VIAL IV ONE (13:30)
--- NOTE | 2019-12-04 14:12 | NUR ---
TITRATED O2 DOWN TO 5LPM OXYMIZER. PT TOLERATING CHANGES WELL, SPO2 96%. WILL CONTINUE TO MONITOR.
--- NOTE | 2019-12-04 15:53 | NUR ---
Nutrition Follow-up Notes Wt.: 79.5 kg as of 11/22/19 Pt was asleep with no relatives at bedside when rounded this morning. No signs of distress noted per front end driver. Pt currently on CCHO 45g, Full Liquid diet with avg of 45% PO intake. Pt also receiving TPN @ 67 ml/hr providing 1070 kcal, 90 gms pro, 710 NPCs and 6% Fat. Pt with adequate PN support aeb 50% to 60% of estimated caloric needs. Noted pt is to receive another TPN order @ 67 ml/hr tonight. Estimated Needs : 6306-7876 kcal (25-30 kcal/kgBW), 85-106 gms protein (1.2-1.5 gm/kgBW reassessed d/t severe hypoalbuminemia, s/p surgery). Will continue to monitor pertinent labs and reassess nutrient needs prn Labs 12/03: Na 135 L, Cr 0.62 L, Serum glucose 150 H, POC 186 H, Ca 7.5 L, AST 12 L, ALT 9 L, TP 5.3 L, Albumin 1.6 L Skin : Mehran scale 16, mod risk, abdominal incision dry and intact per front end driver. GI: Bowel movement on 12/03/19 per front end driver. PES: 1) Partially resolved: Increased nutrient needs r/t acute/chronic medical condition aeb sedated, intubated, NPO with TPN 2) Altered nutrition related lab values r/t current/chronic medical condition aeb hyperglycemia, elev. HbA1c, low phos, hypocalcemia and mod hypoalbuminemia Will continue to monitor NPO status, PN tolerance, skin status, pertinent labs and weight trend. F/u in 2 to 3 days. Recommendations: 1) Advance gradually to oral diet when medically appropriate. 2) Refer pt to CDE/RD for further nutrition education and weight monitoring upon discharge. 3) Continue current plan of care.
--- NOTE | 2019-12-04 16:00 | NUR ---
DR. FITZGERALD H WAS CALLED FOR CHEST X RAY RESULT OF NEW LT. UPPER LOBE FOCAL INFILTRATE REPORTED, IS AWARE, NO NEW ORDERS NOTED, WILL CONTINUE MONITORED.
[2019-12-04 17:06] VITALS: BP 102/66
[2019-12-04] MEDS: levoFLOXacin 750MG 150 ML IV SCH (17:39)
[2019-12-04] MEDS: INSULIN LANTUS (GLARGINE) 1 /0.01ml (100units/ml) SC SCH (17:41)
[2019-12-04] MEDS: IPRATROPIUM BROM 0.5 MG/2.5ML INH SOL NEB SCH ×2 (18:47→21:37)
[2019-12-04] MEDS: ALBUTEROL SULF 2.5 MG/0.5ML(0.5%) NEB SOLN NEB SCH ×2 (18:47→21:36)
--- NOTE | 2019-12-04 19:39 | NUR ---
Opening Shift Note Assumed care of patient. Pt is awake, alert, and orientated x 4. No S/S of distress/SOB or pain. Pt has slight audible wheezes and is on 5L of o2 via Oxymizer Insructed on POC and to callfor assist PRN, will continue to monitor for changes Q1hr and PRN. Addendum: 12/05/19 at 0253 by ALYSSA FAUST RN RN Pt has MELISSA on right side of abdomen draining sanguineous fluid and a Bakers tube on the left side of abdomen that connect to LIS. Suction container shows dark green-brown fluid at 700 ml. Pt has TPN drip infusing at 67ml/hr which is being infused via right upper arm dual lumen Picc line. Pt claims to have 3 BM today and refused Mineral oil bed pushed into Bakers tube. Expressed risks of refusing Mineral oil in Bakers tube.
--- NOTE | 2019-12-04 19:40 | NUR ---
RESTING ON BED, NOT IN DISTRESS, DENIED PAIN, REPORT WAS GIVEN TO THE [employer] DEPARTMENT MANAGER RN.
[2019-12-04] MEDS: TPN PER PHARMACY IV NR ×12 (19:48)
[2019-12-04 20:00] VITALS: BP 110/63
[2019-12-04] MEDS ORDERED: TPN PER PHARMACY IV NR ×12 (20:00)
[2019-12-04] MEDS: MORPHINE SULF INJ 2 MG/ML SYRINGE 1ML IV PRN (21:38)
[2019-12-04 22:00] VITALS: BP 99/59
[2019-12-04] MEDS: TEMAZEPAM 15 MG CAP PO SCH (22:48)
[2019-12-05] VITALS (7 sets, daily range): BP systolic 95–104; BP diastolic 59–72
[2019-12-05] MEDS: ACCU-CHEK COMFORT CURVE STRIP VI SCH ×4 (00:43→18:00)
[2019-12-05] MEDS: HYDROcodone-ACET 5/325MG TAB PO PRN ×3 (01:38→20:50)
[2019-12-05] MEDS: MINERAL OIL 30 ML GT SCH ×6 (02:00→22:48)
[2019-12-05] MEDS: ALBUTEROL SULF 2.5 MG/0.5ML(0.5%) NEB SOLN NEB SCH ×6 (02:24→21:36)
[2019-12-05] MEDS: IPRATROPIUM BROM 0.5 MG/2.5ML INH SOL NEB SCH ×6 (02:25→21:36)
[2019-12-05] MEDS: PIPERACILLIN-TAZOB 3.375GM 100 ML IV SCH ×4 (02:54→20:49)
[2019-12-05] MEDS: InsuLIN REG 1unit/0.01ml Soln (100units/ml) SC SCH ×4 (06:00→18:00)
[2019-12-05] MEDS: MORPHINE SULF INJ 2 MG/ML SYRINGE 1ML IV PRN ×3 (06:31→23:11)
[2019-12-05 07:01] LABS: Potassium 3.9 mmol/L (3.5-5.1)
[2019-12-05 07:09] LABS: Albumin 1.4 g/dL (3.4-5.0); BUN/Creatinine Ratio 26.2; Bilirubin, Total 0.5 mg/dL (0.2-1.0); Calcium 7.4 mg/dL (8.5-10.1); Magnesium 2.1 mg/dL (1.6-2.6); Phosphorus 2.8 mg/dL (2.5-4.90); Total Protein 4.7 g/dL (6.4-8.2)
[2019-12-05] MEDS: Glucerna Carbsteady SHAKE Vanilla 8oz PO SCH ×3 (08:00→18:00)
[2019-12-05] MEDS: METOCLOPRAMIDE HCL 5MG/ml INJ 2ml VIAL IV SCH ×4 (08:00→22:31)
--- NOTE | 2019-12-05 08:00 | NUR ---
RECEIVED PATIENT ALERT AND ORIENTED X4, NOT IN DISTRESS, CLEAR LUNG SOUNDS IN RT. UPPER DIMINISHED IN LT. UPPER LOBE AND BILATERAL LUNG LOBED, RR=18 SAT=95%, COUGHING AND DEEP BREATHING WADS ENCOURAGED, INCENTIVE SPIROMETER AT BED SIDE, EDUCATION AND RE ENCOURAGED DEMONSTRATED WELL, SR ON TELE MONITOR R=98, DENIED CHEST PAIN AND SOB AT THIS MOMENT, ABDOMEN SOFT WITH ACTIVE BS,MID ABDOMINAL INCISION STAPLED AND INTACT, OPEN TO AIR, RT. ABDOMEN MELISSA DRAIN TUBE IN PLACE PATENT AND INTACT, SITE COVERED WITH DRY AND INTACT DRESSING, LT. STAFFORD DRAIN TUBE IN PLACE PATENT AND INTACT, SITE COVERED WITH DRY AND INTACT DRESSING, LIGHT BROWN DRAIN NOTED, LAST BM=12/03/19 REPORTED, SKIN INTACT WARM TO TOUCH, RESTING ON BED AT THIS MOMENT, HEAD OF BED ELEVATED, BED ON LOW POSITION, RAILS UP X2, CALL LIGHT ON REACH, PENDING SURGICAL CONSULT, PENDING PT, WILL CONTINUE MONITORING.
[2019-12-05] MEDS ORDERED: TPN PER PHARMACY IV SCH (08:15)
[2019-12-05] MEDS: SODIUM CHLOR 0.9% PF (SALINE LOCK) 10ML VIAL/SYR IV SCH ×2 (09:47→22:31)
[2019-12-05] MEDS: PANTOPRAZOLE 40 MG/10 ML VIAL INJ IV SCH (09:47)
[2019-12-05] MEDS: METOPROLOL TARTRATE 25 MG TAB PO SCH ×2 (09:48→22:31)
[2019-12-05] MEDS: NICOTINE 14 MG/24HR TOPICAL PATCH TD SCH (09:49)
--- NOTE | 2019-12-05 11:30 | NUR ---
PENDING SURGICAL CONSULT, DR. NAIR CALLED FOR UPDATED, COMMUNICATED WITH DR. LIA Andrews, SURGICAL CONSULT WILL BE DONE ON Monday12/06/[address] FITZGERALD, RESTING ON BED, AT BED SIDE, WILL CONTINUE MONITORING.
[2019-12-05] MEDS: guaiFENesin 200 MG/10 ML UD PO PRN (12:46)
--- NOTE | 2019-12-05 17:00 | NUR ---
OUT OF BED AND AMBULATED AROUND THE UNIT X1, TOLERATED WELL, BACK TO THE ROOM, SITTING ON THE CHAIR, TEPERING TPN ORDERED BY DR. NAIR, DIET UPGRADED ORDERED, AT BED SIDE, WILL CONTINUE MONITORING.
[2019-12-05] MEDS: SODIUM CHLORIDE 0.9% 1,000 ML IV SCH (17:06)
[2019-12-05] MEDS: levoFLOXacin 750MG 150 ML IV SCH (17:10)
--- NOTE | 2019-12-05 17:20 | NUR ---
MELISSA IN PLACE AND PATENT, SITE DRESSING WAS CHANGED TOLERATED WELL.
[2019-12-05] MEDS: INSULIN LANTUS (GLARGINE) 1 /0.01ml (100units/ml) SC SCH (19:00)
--- NOTE | 2019-12-05 19:40 | NUR ---
RESTING ON BED, NOT IN DISTRESS, DENIED PAIN, REPORT WAS GIVEN TO THE CHILD THERAPIST RN.
[2019-12-05] MEDS: TPN PER PHARMACY IV NR ×11 (20:00)
--- NOTE | 2019-12-05 20:12 | NUR ---
open note assumed care of pt. upon entering room pt awake, alert and oriented x4. pt on room air, no distress noted. pt denies any pain. pt has bakers tube to left quadrant of abdomen, connected to bedside suction, canister is presently empty. pt updated on plan of care and all concerns addressed to this point. call light in reach, bed locked, low and 2x rails up. this nurse to round q1hr and prn.
[2019-12-05] MEDS: TEMAZEPAM 15 MG CAP PO SCH (22:32)
[2019-12-06] MEDS: ACCU-CHEK COMFORT CURVE STRIP VI SCH ×5 (00:24→23:54)
--- NOTE | 2019-12-06 00:45 | NUR ---
pt had 4 beat run of vtach. upon entering room pt eyes closed, breathing even and unlabored on 5L oxymizer. pt awoke with this nurse observing pt, to which he denied any pain. no distress noted or expressed. this nurse will page hospitalist to notify of occurrence. call light in reach, this nurse will round q1hr and prn.
[2019-12-06] MEDS: ONDANSETRON HCL 4 MG/2 ML VIAL IV PRN (01:02)
[2019-12-06] MEDS: IPRATROPIUM BROM 0.5 MG/2.5ML INH SOL NEB SCH ×7 (02:15→23:03)
[2019-12-06] MEDS: ALBUTEROL SULF 2.5 MG/0.5ML(0.5%) NEB SOLN NEB SCH ×7 (02:15→23:03)
[2019-12-06] MEDS: MINERAL OIL 30 ML GT SCH ×6 (02:30→22:00)
[2019-12-06] MEDS: HYDROcodone-ACET 5/325MG TAB PO PRN ×2 (02:30→12:32)
[2019-12-06] MEDS: PIPERACILLIN-TAZOB 3.375GM 100 ML IV SCH ×4 (02:30→20:24)
[2019-12-06 05:00] VITALS: BP 100/60
[2019-12-06] MEDS: InsuLIN REG 1unit/0.01ml Soln (100units/ml) SC SCH ×5 (06:30→23:53)
--- NOTE | 2019-12-06 07:15 | NUR ---
Opening Shift Note Assumed care of patient, awake and alert. No S/S of distress/SOB or pain. Instructed on POC and to call for assist PRN, will continue to monitor for changes Q1hr and PRN. Fall precautions in place per safety protocol. Patient currently on on 3L NC via Oxymizer with an O2 Sat of 93.
[2019-12-06 08:00] VITALS: BP 104/65
[2019-12-06] MEDS: METOCLOPRAMIDE HCL 5MG/ml INJ 2ml VIAL IV SCH ×4 (08:00→22:54)
[2019-12-06] MEDS: Glucerna Carbsteady SHAKE Vanilla 8oz PO SCH ×3 (08:00→18:09)
[2019-12-06 08:58] LABS: Albumin 1.4 g/dL (3.4-5.0); Calcium 7.5 mg/dL (8.5-10.1); Magnesium 1.9 mg/dL (1.6-2.6); Potassium 4.2 mmol/L (3.5-5.1)
[2019-12-06 09:00] VITALS: BP 104/65
[2019-12-06 09:01] LABS: BUN/Creatinine Ratio 24.1; Bilirubin, Total 0.5 mg/dL (0.2-1.0); Phosphorus 2.9 mg/dL (2.5-4.90); Total Protein 5.3 g/dL (6.4-8.2)
[2019-12-06] MEDS: NICOTINE 14 MG/24HR TOPICAL PATCH TD SCH (09:45)
[2019-12-06] MEDS: METOPROLOL TARTRATE 25 MG TAB PO SCH ×2 (09:46→22:55)
[2019-12-06] MEDS: PANTOPRAZOLE 40 MG/10 ML VIAL INJ IV SCH (09:46)
[2019-12-06] MEDS: SODIUM CHLOR 0.9% PF (SALINE LOCK) 10ML VIAL/SYR IV SCH ×2 (09:47→22:55)
[2019-12-06] MEDS: MORPHINE SULF INJ 2 MG/ML SYRINGE 1ML IV PRN ×2 (10:02→20:30)
--- NOTE | 2019-12-06 10:08 | NUR ---
AT BEDSIDE FOR MEDNEB TX. FOUND PT WITH OXYMIZER OFF, SPO2 84% ON ROOM AIR. MEDNEB TX GIVEN, NO ADVERSE REACTIONS NOTED. POST-TX, PLACED PT BACK ON O2 NASAL CANNULA 3LPM, SPO2 92%. NO S/S OF RESPIRATORY DISTRESS NOTED. NOTIFIED JUICE FAUSTIN
[2019-12-06] MEDS: SODIUM CHLORIDE 0.9% 1,000 ML IV SCH ×2 (12:45→22:45)
[2019-12-06 13:00] VITALS: BP 98/63
--- NOTE | 2019-12-06 16:27 | NUR ---
Patient refused physical therapy. Celestine Coker was notified. Addendum: 12/06/19 at 1628 by ROD JEFFERSON PTT Amended: Links added.
[2019-12-06 17:00] VITALS: BP 107/65
[2019-12-06] MEDS: levoFLOXacin 750MG 150 ML IV SCH (17:29)
[2019-12-06] MEDS: INSULIN LANTUS (GLARGINE) 1 /0.01ml (100units/ml) SC SCH (18:10)
--- NOTE | 2019-12-06 19:14 | NUR ---
Respiratory note: PT CURRENTLY GETTING MED NEB TX AT THIS TIME. PT STATED NOT TO WAKE HIM UP FOR 2200 AND 0200 MED NEB TX IF HE IS SLEEPING. WILL CONTINUE TO MONITOR.
--- NOTE | 2019-12-06 19:20 | NUR ---
Care endorsed to Night RN.
[2019-12-06] MEDS: TPN PER PHARMACY IV NR ×11 (19:47)
[2019-12-06] MEDS ORDERED: TPN PER PHARMACY IV NR ×11 (20:00)
--- NOTE | 2019-12-06 20:57 | NUR ---
Emptied right abdomen MELISSA drain 10ml of sanguineous fluid. Drain is suctioned, patent and intact. Signed: 12/06/19 at 2103 by JOSEPHINE WEST <Co-Signature Required> Co-Signed: 12/06/19 at 2103 by KENZIE RANGEL RN RN
[2019-12-06 22:00] VITALS: BP_SYST 83; BP_SYST 88; BP_DIAS 55; BP_DIAS 60
--- NOTE | 2019-12-06 22:19 | NUR ---
Respiratory note: PT SLEEPING AT THIS TIME. MED NEB TX NOT GIVEN, WILL CONTINUE TO MONITOR.
[2019-12-06] MEDS ORDERED: SODIUM CHLORIDE 0.9% 1,000 ML IV ONE (22:45)
[2019-12-06] MEDS: TEMAZEPAM 15 MG CAP PO SCH (22:56)
[2019-12-07] VITALS (7 sets, daily range): BP systolic 102–116; BP diastolic 57–74
[2019-12-07] MEDS: MINERAL OIL 30 ML GT SCH ×6 (02:05→22:33)
[2019-12-07] MEDS: IPRATROPIUM BROM 0.5 MG/2.5ML INH SOL NEB SCH ×6 (02:09→22:03)
[2019-12-07] MEDS: ALBUTEROL SULF 2.5 MG/0.5ML(0.5%) NEB SOLN NEB SCH ×6 (02:10→22:03)
[2019-12-07] MEDS: PIPERACILLIN-TAZOB 3.375GM 100 ML IV SCH ×4 (02:32→20:29)
[2019-12-07] MEDS: MORPHINE SULF INJ 2 MG/ML SYRINGE 1ML IV PRN ×3 (02:42→20:05)
[2019-12-07] MEDS: guaiFENesin 200 MG/10 ML UD PO PRN (03:46)
[2019-12-07 06:00] LABS: Albumin 1.3 g/dL (3.4-5.0); Calcium 7.5 mg/dL (8.5-10.1); Potassium 3.7 mmol/L (3.5-5.1)
[2019-12-07] MEDS: InsuLIN REG 1unit/0.01ml Soln (100units/ml) SC SCH ×3 (06:00→17:43)
[2019-12-07 06:07] LABS: Bilirubin, Total 0.4 mg/dL (0.2-1.0); Pre Albumin 5.2 mg/dL (20.0-40.0); Total Protein 4.8 g/dL (6.4-8.2)
[2019-12-07] MEDS: ACCU-CHEK COMFORT CURVE STRIP VI SCH ×4 (06:14→23:55)
--- NOTE | 2019-12-07 07:15 | NUR ---
Opening Shift Note Assumed care of patient, awake and alert. No S/S of distress/SOB or pain. Instructed on POC and to call for assist PRN, will continue to monitor for changes Q1hr and PRN. Fall precautions in place per safety protocol.
[2019-12-07] MEDS: METOCLOPRAMIDE HCL 5MG/ml INJ 2ml VIAL IV SCH ×4 (08:22→22:33)
[2019-12-07] MEDS: Glucerna Carbsteady SHAKE Vanilla 8oz PO SCH ×3 (08:22→17:43)
[2019-12-07] MEDS: SODIUM CHLORIDE 0.9% 1,000 ML IV SCH ×2 (08:22→12:05)
[2019-12-07] MEDS: METOPROLOL TARTRATE 25 MG TAB PO SCH ×2 (09:53→22:34)
[2019-12-07] MEDS: PANTOPRAZOLE 40 MG/10 ML VIAL INJ IV SCH (09:53)
[2019-12-07] MEDS: SODIUM CHLOR 0.9% PF (SALINE LOCK) 10ML VIAL/SYR IV SCH ×2 (09:53→22:34)
[2019-12-07] MEDS: NICOTINE 14 MG/24HR TOPICAL PATCH TD SCH (10:00)
--- NOTE | 2019-12-07 10:00 | NUR ---
Hospitalist at bedside MD Mendoza at bedside, aware of patient status. New orders to switch patient from Telemetry to Med Surg. Will carry out new orders and cont to monitor patient.
--- NOTE | 2019-12-07 10:00 | NUR ---
Hospitalist at bedside MD Mendoza at bedside, aware of patient status. New orders to downgrade patient from telemetry to med surg received. Will cont to monitor patient.
--- NOTE | 2019-12-07 10:01 | NUR ---
PT Patient refused to be OOB during morning visit. JUICE Avery was informed of patients refusal. Addendum: 12/07/19 at 1002 by KRISTEL BURGER PTT Amended: Links added.
--- NOTE | 2019-12-07 14:00 | NUR ---
Patient refusing Physical therapy at this time. Will cont to monitor patient and encourage active ROM.
--- NOTE | 2019-12-07 14:40 | NUR ---
PT Patient continue to refuse PT during afternoon visit. Addendum: 12/07/19 at 1441 by KRISTEL BURGER PTT Amended: Links added.
[2019-12-07] MEDS: levoFLOXacin 750MG 150 ML IV SCH (17:42)
[2019-12-07] MEDS: INSULIN LANTUS (GLARGINE) 1 /0.01ml (100units/ml) SC SCH (17:43)
--- NOTE | 2019-12-07 19:29 | NUR ---
ENDORSED CARE TO NIGHT JUICE ZAMUDIO.
[2019-12-07] MEDS ORDERED: TPN PER PHARMACY IV NR ×12 (20:00)
--- NOTE | 2019-12-07 20:05 | NUR ---
Opening Shift Note Assumed care of patient, awake and alert. No S/S of SOB. Patient is on 3 liters of oxygen via nasal cannula. Respirations even and unlabored. Patient reports 7/10 back pain. Will medicate patient with PRN pain medication per MD order. Instructed on POC and to call for assist PRN, will continue to monitor for changes Q1hr and PRN.
--- NOTE | 2019-12-07 22:00 | NUR ---
Patient requests breathing treatment due to SOB. Oxygen saturation is 95% on 3 liters of oxygen via nasal cannula. Respiratory therapy paged. Will continue to monitor.
[2019-12-07] MEDS: TEMAZEPAM 15 MG CAP PO SCH (22:34)
[2019-12-07] MEDS: HYDROcodone-ACET 5/325MG TAB PO PRN (22:56)
[2019-12-08] VITALS (8 sets, daily range): BP systolic 105–122; BP diastolic 66–80
[2019-12-08] MEDS: InsuLIN REG 1unit/0.01ml Soln (100units/ml) SC SCH ×4 (00:01→17:44)
[2019-12-08] MEDS: SODIUM CHLORIDE 0.9% 1,000 ML IV SCH ×2 (01:39→14:45)
[2019-12-08] MEDS: PIPERACILLIN-TAZOB 3.375GM 100 ML IV SCH ×4 (01:45→20:10)
[2019-12-08] MEDS: MINERAL OIL 30 ML GT SCH ×6 (03:04→22:37)
--- NOTE | 2019-12-08 03:15 | NUR ---
Patient requests breathing treatment due to SOB. Oxygen saturation is 97% on 3 liters of oxygen via nasal cannula. Respiratory therapy paged. Will continue to monitor.
[2019-12-08] MEDS: IPRATROPIUM BROM 0.5 MG/2.5ML INH SOL NEB SCH ×6 (03:20→22:36)
[2019-12-08] MEDS: ALBUTEROL SULF 2.5 MG/0.5ML(0.5%) NEB SOLN NEB SCH ×6 (03:20→22:36)
--- NOTE | 2019-12-08 03:20 | NUR ---
Respiratory note: PT REQUESTED TO BE LEFT ASLEEP. Addendum: 12/08/19 at 0323 by REMEDIOS FAIRBANKS JR RT BLANCA ALEJO. WILL ENDORSE TO DAY SHIFT RT.
[2019-12-08] MEDS: HYDROcodone-ACET 5/325MG TAB PO PRN (03:32)
--- NOTE | 2019-12-08 03:34 | NUR ---
PATIENT STATED PAIN LEVEL IS 6/10. PATIENT MEDICATED PER PROTOCOL. PATIENT EDUCATED ON PAIN SCALE. PATIENT VERBALIZED UNDERSTANDING. WILL CONTINUE TO MONITOR AND WILL ENDORSE UPON RN'S RETURN.
--- NOTE | 2019-12-08 04:28 | NUR ---
Endorsed care to Kashif BOSE. Report given. Addendum: 12/08/19 at 0503 by Makayla Edwards RN No S/S of distress.
--- NOTE | 2019-12-08 04:44 | NUR ---
RECEIVED REPORT FROM OUTGOING PROFESSOR OF ENGINEERING RN ASSUMING ROLE OF CARE OF PATIENT AT THIS TIME. PATIENT SHOWING NO SIGN OF DISTRESS, SHORTNESS OF BREATH AND PATIENT STATING CONTINUED PAIN AT 7/10. PATIENT GIVEN ADDITIONAL PAIN MEDICATION PER PAIN SCALE. PATIENT RESTING COMFORTABLY. WILL CONTINUE TO MONITOR PATIENT.
[2019-12-08] MEDS: MORPHINE SULF INJ 2 MG/ML SYRINGE 1ML IV PRN ×2 (04:54→19:50)
[2019-12-08] MEDS: ACCU-CHEK COMFORT CURVE STRIP VI SCH ×3 (06:09→17:45)
--- NOTE | 2019-12-08 06:10 | NUR ---
HOSPITALIST PAGED PATIENT COMPLAINING OF CHEST TIGHTNESS. PATIENT STATES THEY DIDN'T GET THEIR 0200 BREATHING TREATMENT. EKG PERFORMED SHOWING SINUS TACHYCARDIA. VS TAKEN WITH O2 AT 95% ON 2LN, BP 108/76, AND HEART RATE OF 106. WILL AWAIT CALL BACK OR ORDERS.
--- NOTE | 2019-12-08 06:38 | NUR ---
RT AT BEDSIDE. PATIENT REQUESTING A BREATHING TREATMENT FOR SHORTNESS OF BREATH.
[2019-12-08 07:28] LABS: Albumin 1.3 g/dL (3.4-5.0); Calcium 7.3 mg/dL (8.5-10.1); Magnesium 2.1 mg/dL (1.6-2.6); Potassium 3.7 mmol/L (3.5-5.1)
[2019-12-08 07:31] LABS: BUN/Creatinine Ratio 17.3; Bilirubin, Total 0.4 mg/dL (0.2-1.0); Phosphorus 3.1 mg/dL (2.5-4.90)
[2019-12-08] MEDS: METOCLOPRAMIDE HCL 5MG/ml INJ 2ml VIAL IV SCH ×4 (07:42→22:37)
[2019-12-08] MEDS: Glucerna Carbsteady SHAKE Vanilla 8oz PO SCH ×3 (07:43→17:44)
[2019-12-08] MEDS: NICOTINE 14 MG/24HR TOPICAL PATCH TD SCH (10:00)
[2019-12-08] MEDS: METOPROLOL TARTRATE 25 MG TAB PO SCH ×2 (10:15→22:38)
[2019-12-08] MEDS: SODIUM CHLOR 0.9% PF (SALINE LOCK) 10ML VIAL/SYR IV SCH ×2 (10:15→22:38)
[2019-12-08] MEDS: PANTOPRAZOLE 40 MG/10 ML VIAL INJ IV SCH (10:15)
--- NOTE | 2019-12-08 10:33 | NUR ---
Patient currently ambulating with Physical therapy. Will cont to monitor patient.
--- NOTE | 2019-12-08 11:00 | NUR ---
Hospitalist at bedside, aware of patient status. New orders for surgical eval with MD Lei received. Will cont to monitor patient.
[2019-12-08] MEDS: levoFLOXacin 750MG 150 ML IV SCH (17:12)
[2019-12-08] MEDS: INSULIN LANTUS (GLARGINE) 1 /0.01ml (100units/ml) SC SCH (17:45)
--- NOTE | 2019-12-08 19:16 | NUR ---
Endorsed care to night JUICE Benavides. Patient is resting in bed, no distress, sob, or pain noted at this time.
[2019-12-08] MEDS ORDERED: TPN PER PHARMACY IV NR ×12 (20:00)
[2019-12-08] MEDS: TEMAZEPAM 15 MG CAP PO SCH (22:38)
[2019-12-09] VITALS (7 sets, daily range): BP systolic 97–123; BP diastolic 58–75
--- NOTE | 2019-12-09 | NUR ---
Patient educated on use of incentive spirometer. Patient performed return demonstration. Patient was able to reach maximum of 900 ml. Patient educated to use incentive spirometer 10 times per hour when awake. Patient verbalized understanding.
[2019-12-09] MEDS: ACCU-CHEK COMFORT CURVE STRIP VI SCH ×4 (00:06→18:19)
[2019-12-09] MEDS: MINERAL OIL 30 ML GT SCH ×6 (02:00→21:34)
[2019-12-09] MEDS: PIPERACILLIN-TAZOB 3.375GM 100 ML IV SCH ×4 (02:06→20:07)
--- NOTE | 2019-12-09 02:30 | NUR ---
Patient reports SOB. Patient is on 3 liters of oxygen via nasal cannula, pulse oximeter reading is 95%. Respiratory therapist paged for breathing treatment.
[2019-12-09] MEDS: ALBUTEROL SULF 2.5 MG/0.5ML(0.5%) NEB SOLN NEB SCH ×6 (02:56→21:51)
[2019-12-09] MEDS: IPRATROPIUM BROM 0.5 MG/2.5ML INH SOL NEB SCH ×6 (02:56→21:51)
--- NOTE | 2019-12-09 03:28 | NUR ---
Patient reports SOB. Patient is on 3 liters of oxygen via nasal cannula, pulse oximeter reading is 95%. Respiratory therapist paged for breathing treatment.
[2019-12-09] MEDS: SODIUM CHLORIDE 0.9% 1,000 ML IV SCH ×2 (03:32→18:17)
[2019-12-09] MEDS: MORPHINE SULF INJ 2 MG/ML SYRINGE 1ML IV PRN ×2 (03:33→19:02)
--- NOTE | 2019-12-09 04:58 | NUR ---
Patient requests breathing treatment due to chest tightness. Patient is on 3 liters of oxygen via nasal cannula at this time. Pulse oximeter reading is 92%. Respiratory therapy paged.
[2019-12-09 06:28] LABS: Hematocrit 27.6 % (41.0-53.0); Hemoglobin 9.2 g/dL (13.5-17.5); Mean Corpuscular Hemoglobin 32.5 pg (28.0-32.0); Mean Corpuscular Hgb Conc. 33.5 g/dL (32.0-36.0); Mean Corpuscular Volume 97.2 fL (80.0-100.0); Platelet Count (auto) 543 10^3/uL (140-450); Red Blood Cells 2.84 10^6/uL (4.5-5.90); Red Cell Distribution Width 14.6 % (11.8-14.3); White Blood Cell 12.6 10^3/uL (4.4-10.8)
[2019-12-09 06:48] LABS: Band Neutrophils % (manual) 0; Basophils % (manual) 0 (0.0-2.0); Blast Cells 0; Eosinophils % (manual) 0 (0-7); Metamyelocytes % 0; Myelocytes % 0; Promyelocytes % 0; Reactive Lymphocytes 0
[2019-12-09] MEDS: InsuLIN REG 1unit/0.01ml Soln (100units/ml) SC SCH ×4 (06:53→18:19)
--- NOTE | 2019-12-09 06:55 | NUR ---
10 ml sanguinous drainage emptied from MELISSA drain.
[2019-12-09 06:59] LABS: Albumin 1.3 g/dL (3.4-5.0); BUN/Creatinine Ratio 19.2; Calcium 7.3 mg/dL (8.5-10.1)
--- NOTE | 2019-12-09 07:00 | NUR ---
CLOSING NOTE No S/S of SOB. Patient is on 3 liters of oxygen via nasal cannula. Respirations even and unlabored.
[2019-12-09 07:03] LABS: Bilirubin, Total 0.3 mg/dL (0.2-1.0); Total Protein 5.1 g/dL (6.4-8.2)
[2019-12-09 07:58] LABS: Lymphocytes % (manual) 12 (10.0-50.0); Monocytes % (manual) 13 (0-12)
--- NOTE | 2019-12-09 08:00 | NUR ---
Opening Note Assumed patient care from EDITA RN.
[2019-12-09] MEDS: METOCLOPRAMIDE HCL 5MG/ml INJ 2ml VIAL IV SCH ×4 (08:32→21:34)
--- NOTE | 2019-12-09 09:30 | NUR ---
MD at bedside MD at bedside, will carry out new orders.
[2019-12-09] MEDS: NICOTINE 14 MG/24HR TOPICAL PATCH TD SCH (10:00)
[2019-12-09] MEDS: PANTOPRAZOLE 40 MG/10 ML VIAL INJ IV SCH (10:24)
[2019-12-09] MEDS: METOPROLOL TARTRATE 25 MG TAB PO SCH ×2 (10:25→21:34)
[2019-12-09] MEDS: Glucerna Carbsteady SHAKE Vanilla 8oz PO SCH ×3 (10:25→18:00)
[2019-12-09] MEDS: SODIUM CHLOR 0.9% PF (SALINE LOCK) 10ML VIAL/SYR IV SCH ×2 (10:26→21:34)
--- NOTE | 2019-12-09 12:02 | NUR ---
PT 1st AM visit, patient was on bedpan. 2nd AM visit, patient just got off from bed valentin and requested from this PTT to comeback later. Addendum: 12/09/19 at 1203 by KRISTEL BURGER PTT Amended: Links added.
--- NOTE | 2019-12-09 15:48 | NUR ---
Nutrition Follow-up Notes Wt.: 79.9 kg Pt was awake with no relatives at bedside when rounded this morning. No signs of distress noted per nursery nurse. Pt currently on CCHO 60g diet with avg of 70% PO intake. Pt also receiving TPN @ 60 ml/hr providing 1070 kcal, 90 gms pro, 710 NPCs and 6% Fat. Pt with adequate PN support aeb 50% to 60% of estimated caloric needs. Pt also receiving Glucerna TID. Noted pt is to receive another TPN order @ 62 ml/hr tonight. Pt requested changing food texture to mechanical soft to facilitate chewing. Estimated Needs : 3366-6512 kcal (25-30 kcal/kgBW), 85-106 gms protein (1.2-1.5 gm/kgBW reassessed d/t severe hypoalbuminemia, s/p surgery). Will continue to monitor pertinent labs and reassess nutrient needs prn Labs 12/08: Cr 0.52 L, serum glucose 144 H, POC 147 H, Ca 7.3 L, ALT 12 L, TP 5.1 L, Albumin 1.3 L. Skin : Mehran scale 20, low risk, abdominal incision dry and intact, MELISSA drain to R abdomen, per nursery nurse. GI: Bowel movement on 12/08/19 per nursery nurse. PES: 1) Partially resolved: Increased nutrient needs r/t acute/chronic medical condition aeb sedated, intubated, NPO with TPN 2) Altered nutrition related lab values r/t current/chronic medical condition aeb hyperglycemia, elev. HbA1c, low phos, hypocalcemia and mod hypoalbuminemia Will continue to monitor PO status, PN tolerance, skin status, pertinent labs and weight trend. F/u in 2 to 3 days. Recommendations: 1) Advance gradually to oral diet when medically appropriate. 2) Refer pt to CDE/RD for further nutrition education and weight monitoring upon discharge. 3) Continue current plan of care.
[2019-12-09] MEDS: INSULIN LANTUS (GLARGINE) 1 /0.01ml (100units/ml) SC SCH (18:20)
[2019-12-09] MEDS: levoFLOXacin 750MG 150 ML IV SCH (18:20)
[2019-12-09] MEDS ORDERED: TPN PER PHARMACY IV NR ×12 (20:00)
--- NOTE | 2019-12-09 20:10 | NUR ---
Opening Shift Note Assumed care of patient, awake and alert. No S/S of SOB. Patient is on 3 liters of oxygen via nasal cannula. Respirations even and unlabored. Instructed on POC and to call for assist PRN, will continue to monitor for changes Q1hr and PRN.
--- NOTE | 2019-12-09 20:36 | NUR ---
Kiersten Duenas, at bedside with patient. New orders received.
--- NOTE | 2019-12-09 20:40 | NUR ---
5 ml sanguinous drainage emptied from MELISSA drain.
[2019-12-09] MEDS ORDERED: LORazepam 2MG/ML-1ML VIAL IV PRN (20:45)
[2019-12-09] MEDS: TEMAZEPAM 15 MG CAP PO SCH (21:35)
[2019-12-09] MEDS: HYDROcodone-ACET 5/325MG TAB PO PRN (21:52)
[2019-12-10] VITALS (7 sets, daily range): BP systolic 104–118; BP diastolic 66–77
[2019-12-10] MEDS: ACCU-CHEK COMFORT CURVE STRIP VI SCH ×3 (00:10→13:06)
[2019-12-10] MEDS: MORPHINE SULF INJ 2 MG/ML SYRINGE 1ML IV PRN ×3 (00:17→10:22)
[2019-12-10] MEDS: InsuLIN REG 1unit/0.01ml Soln (100units/ml) SC SCH ×3 (00:17→13:05)
--- NOTE | 2019-12-10 00:50 | NUR ---
PICC line dressing done using sterile technique. Patient tolerated well.
[2019-12-10] MEDS: IPRATROPIUM BROM 0.5 MG/2.5ML INH SOL NEB SCH ×4 (01:59→14:11)
[2019-12-10] MEDS: ALBUTEROL SULF 2.5 MG/0.5ML(0.5%) NEB SOLN NEB SCH ×4 (02:00→14:11)
[2019-12-10] MEDS: PIPERACILLIN-TAZOB 3.375GM 100 ML IV SCH ×3 (02:45→14:00)
[2019-12-10] MEDS: MINERAL OIL 30 ML GT SCH ×4 (02:49→14:00)
[2019-12-10] MEDS: SODIUM CHLORIDE 0.9% 1,000 ML IV SCH (05:46)
[2019-12-10 06:02] LABS: Red Blood Cells 2.84 10^6/uL (4.5-5.90); Red Cell Distribution Width 14.7 % (11.8-14.3)
[2019-12-10 06:03] LABS: Hematocrit 27.7 % (41.0-53.0); Hemoglobin 9.2 g/dL (13.5-17.5); Mean Corpuscular Hemoglobin 32.4 pg (28.0-32.0); Mean Corpuscular Hgb Conc. 33.2 g/dL (32.0-36.0); Mean Corpuscular Volume 97.6 fL (80.0-100.0); Platelet Count (auto) 578 10^3/uL (140-450); White Blood Cell 10.7 10^3/uL (4.4-10.8)
[2019-12-10 06:22] LABS: Albumin 1.3 g/dL (3.4-5.0); Calcium 7.7 mg/dL (8.5-10.1); Magnesium 2.2 mg/dL (1.6-2.6); Potassium 4.1 mmol/L (3.5-5.1)
[2019-12-10 06:23] LABS: Basophils % (manual) 0 (0.0-2.0); Blast Cells 0; Promyelocytes % 0; Reactive Lymphocytes 0
[2019-12-10 06:27] LABS: BUN/Creatinine Ratio 15.5; Bilirubin, Total 0.3 mg/dL (0.2-1.0); Phosphorus 3.6 mg/dL (2.5-4.90); Total Protein 5.5 g/dL (6.4-8.2)
--- NOTE | 2019-12-10 07:00 | NUR ---
CLOSING NOTE No S/S of SOB. Patient is on 3 liters of oxygen via nasal cannula. Respirations even and unlabored. 5 ml of sanguinous drainage drained from MELISSA drain.
[2019-12-10 07:22] LABS: Band Neutrophils % (manual) 4; Eosinophils % (manual) 3 (0-7); Lymphocytes % (manual) 27 (10.0-50.0); Metamyelocytes % 3; Monocytes % (manual) 10 (0-12); Myelocytes % 1
--- NOTE | 2019-12-10 08:00 | NUR ---
Opening Note Assumed patient care from EDITA RN.
--- NOTE | 2019-12-10 09:55 | NUR ---
at bedside Dr. Coe at bedside discussing plan of care with patient. Will carry out new orders.
[2019-12-10] MEDS: NICOTINE 14 MG/24HR TOPICAL PATCH TD SCH (10:00)
--- NOTE | 2019-12-10 10:00 | NUR ---
TPN Per MD orders, taper TPN until discontinued.
--- NOTE | 2019-12-10 10:12 | NUR ---
re-assessment Per consult dc planning. Patient will benefit from [facility] and home health for Pt on discharge. Addendum: 12/10/19 at 1013 by Areli Velasquez Amended: Links added.
[2019-12-10] MEDS: METOPROLOL TARTRATE 25 MG TAB PO SCH (10:21)
[2019-12-10] MEDS: METOCLOPRAMIDE HCL 5MG/ml INJ 2ml VIAL IV SCH ×2 (10:22→13:04)
[2019-12-10] MEDS: PANTOPRAZOLE 40 MG/10 ML VIAL INJ IV SCH (10:22)
--- NOTE | 2019-12-10 12:00 | NUR ---
TPN TPN decreased by 10 mL/hr.
--- NOTE | 2019-12-10 12:22 | NUR ---
Paged SS Paged SS, left message will follow up.
--- NOTE | 2019-12-10 13:00 | NUR ---
TPN TPN rate decreased by 20mL/hr.
[2019-12-10] MEDS: Glucerna Carbsteady SHAKE Vanilla 8oz PO SCH ×2 (13:03→13:08)
[2019-12-10] MEDS: SODIUM CHLOR 0.9% PF (SALINE LOCK) 10ML VIAL/SYR IV SCH (13:04)
--- NOTE | 2019-12-10 14:00 | NUR ---
TPN TPN decreased by 20 mL/hr.
--- NOTE | 2019-12-10 14:45 | NUR ---
[facility] at bedside discussing plan of care with patient.
--- NOTE | 2019-12-10 16:10 | NUR ---
Called SS Spoke with Shelley about home health, pending approval. Will follow up.
--- NOTE | 2019-12-10 16:12 | NUR ---
Appointment Scheduled appointment for MELISSA and Lizette drain removal with Haley.
--- NOTE | 2019-12-10 16:51 | NUR ---
D/C Planning Per consult for safety evaluation. Faxed order to [facility] and [facility]. [facility] and [facility] are not contracted with [facility]. Per Karen with [facility] Ph:( [phone]) they will see patient within 24-48hrs upon d/c day. JOCELYN Shannon will be working on authorization. JUICE Palmer was informed.
[2019-12-10] MEDS: levoFLOXacin 750MG 150 ML IV SCH (17:00)
--- NOTE | 2019-12-10 18:35 | NUR ---
Discharge Discharge instructions given as ordered. Encourage to follow up with PMD as instructed. All questions and concerns addressed. Patient verbalized understanding. IV removed with catheter intact, pressure dressing applied. Patient taken to vehicle via transport ([facility]) with all personal belongings, accompanied by staff and family member. No distress noted at time of departure.
== END 2019-12-10 18:35 | disposition home health service (06) | DRG 853 ==
LOC: ER 17:43 → OVERFLOW 17:44 → ICU WEST 11-22 19:32 → DOU IN ICU 11-24 19:34 → TELE-WESTW 11-26 12:00 → WEST WING 12-07 14:39
PROVIDERS: ADMIT Nurse Practitioner; ATTEND Internal Medicine
PROC: 0D9A00Z Drainage of Jejunum with Drainage Device, Open Approach (ICD-10-PCS; 2019-11-22)
PROC: 0BH17EZ Insertion of Endotracheal Airway into Trachea, Via Natural or Artificial Opening (ICD-10-PCS; 2019-11-22)
PROC: 5A1945Z Respiratory Ventilation, 24-96 Consecutive Hours (ICD-10-PCS; 2019-11-22)
PROC: 0DN60ZZ Release Stomach, Open Approach (ICD-10-PCS; principal; 2019-11-22 13:56)
DX: A41.9 Sepsis, unspecified organism (principal); E43 Unspecified severe protein-calorie malnutrition; J69.0 Pneumonitis due to inhalation of food and vomit; J95.821 Acute postprocedural respiratory failure; E87.1 Hypo-osmolality and hyponatremia; E87.4 Mixed disorder of acid-base balance; I13.0 Hypertensive heart and chronic kidney disease with heart failure and stage 1 through stage 4 chronic kidney disease, or unspecified chronic kidney disease; I50.32 Chronic diastolic (congestive) heart failure; K56.609 Unspecified intestinal obstruction, unspecified as to partial versus complete obstruction; D63.8 Anemia in other chronic diseases classified elsewhere; E03.9 Hypothyroidism, unspecified; E11.22 Type 2 diabetes mellitus with diabetic chronic kidney disease; E11.65 Type 2 diabetes mellitus with hyperglycemia; E78.5 Hyperlipidemia, unspecified; E86.0 Dehydration; E86.1 Hypovolemia; E87.6 Hypokalemia; F17.210 Nicotine dependence, cigarettes, uncomplicated; I25.10 Atherosclerotic heart disease of native coronary artery without angina pectoris; K66.0 Peritoneal adhesions (postprocedural) (postinfection); R06.6 Hiccough; N18.9 Chronic kidney disease, unspecified; I25.2 Old myocardial infarction; Z79.890 Hormone replacement therapy; Z80.9 Family history of malignant neoplasm, unspecified; Z82.49 Family history of ischemic heart disease and other diseases of the circulatory system; Z90.49 Acquired absence of other specified parts of digestive tract; Z95.5 Presence of coronary angioplasty implant and graft; Z68.24 Body mass index [BMI] 24.0-24.9, adult
CPT/HCPCS: 36415; 36569; 36600; 71045; 71275; 74176; 74250; 80048; 80053; 81001; 82040; 82533; 82570; 82805; 82962; 83036; 83605; 83615; 83735; 83880; 84100; 84132; 84300; 84443; 84478; 84484; 85007; 85025; 85027; 85610; 85652; 85730; 86141; 86850; 86900; 86901; 87040; 87070; 87081; 87086; 87205; 93005; 93306; 94002; 94003; 94640; 96361; 96365; 96375; 97110; 97116; 97530; A4618; C9113; G0378; J0690; J0696; J1815; J1956; J2001; J2250; J2405; J2543; J2704; J3480; J3490; J7060; J7131

== ENCOUNTER → 2020-07-24 | Day surgery (SDC) | payer OTHER ==
[2020-07-20 15:43] LABS: Urine Bacteria NONE SEEN /hpf (None Seen); Urine Blood Negative /uL (Negative); Urine Specific Gravity 1.032 (1.001-1.035); Urine WBC <1 /hpf (0 - 3)
[2020-07-20 15:44] LABS: Basophils # (auto) 0.1 10 ^3/uL (0-0.2); Basophils % (auto) 0.8 % (0.0-2.0); Eosinophils # (auto) 0.2 10 ^3/uL (0-0.8); Eosinophils % (auto) 2.1 % (0.0-7.0); Hematocrit 49.7 % (41.0-53.0); Hemoglobin 16.6 g/dL (13.5-17.5); Lymphocytes # (auto) 2.7 10 ^3/uL (0.4-5.4); Lymphocytes % (auto) 28.2 % (10.0-50.0); Mean Corpuscular Hemoglobin 32.6 pg (28.0-32.0); Mean Corpuscular Hgb Conc. 33.3 g/dL (32.0-36.0); Mean Corpuscular Volume 97.8 fL (80.0-100.0); Monocytes # (auto) 1.3 10 ^3/uL (0-1.3); Monocytes % (auto) 13.1 % (0.0-12.0); Neutrophils # (auto) 5.3 10 ^3/uL (1.6-8.6); Neutrophils % (auto) 55.8 % (37.0-80.0); Platelet Count (auto) 301 10^3/uL (140-450); Red Blood Cells 5.08 10^6/uL (4.5-5.90); Red Cell Distribution Width 13.7 % (11.8-14.3); White Blood Cell 9.5 10^3/uL (4.4-10.8)
[2020-07-20 15:56] LABS: Albumin 3.8 g/dL (3.4-5.0); Calcium 9.1 mg/dL (8.5-10.1); Potassium 4.5 mmol/L (3.5-5.1)
[2020-07-20 15:59] LABS: INR 1.08 (0.9-1.15)
[2020-07-20 16:00] LABS: BUN/Creatinine Ratio 13.3; Bilirubin, Total 1.2 mg/dL (0.2-1.0); Total Protein 7.5 g/dL (6.4-8.2)
[~2020-07-24] VITALS: Ht 180.3 cm; Wt 62.6 kg
[~2020-07-24] MED LIST changes: +ACCU-CHEK COMFORT CURVE STRIP VI ONE; +ACETAMINOPHEN IV 100 ML IV ONE; -ASP81EC PO; +ASPI-394 PO; +GLYCOPYRROLATE 0.2 MG/ML 1ML VIAL ONE; +HYDROmorphone HCL 2 MG/ML VL IV PRN; +KETAMINE HCL 10 ML ONE; +LIDOCAINE 1% (LOCAL ANESTH.) PF 5ml SDV ONE; +MIDAZOLAM HCL 1MG/1ML-2 ML VIAL ONE; +NALOXONE HCL 0.4 MG/ML VIAL IV PRN; +ONDANSETRON HCL 4 MG/2 ML VIAL IV PRN; +PROPOFOL 10 MG/ML 20 ML IV ONE; +diphenhdrAMINE HCL 50 MG/1 ML VL ONE
[2020-07-24 14:35] VITALS: BP 127/80
== END | disposition home or self-care (01) ==
LOC: GI 10:50
PROVIDERS: ATTEND Internal Medicine Gastroenterology
DX: R19.4 Change in bowel habit (principal); K20.80 Other esophagitis without bleeding; K29.50 Unspecified chronic gastritis without bleeding; D12.2 Benign neoplasm of ascending colon; K29.60 Other gastritis without bleeding; K64.8 Other hemorrhoids; K22.70 Barrett's esophagus without dysplasia; K44.9 Diaphragmatic hernia without obstruction or gangrene; K21.9 Gastro-esophageal reflux disease without esophagitis; E11.40 Type 2 diabetes mellitus with diabetic neuropathy, unspecified; I25.10 Atherosclerotic heart disease of native coronary artery without angina pectoris; E07.9 Disorder of thyroid, unspecified; I11.0 Hypertensive heart disease with heart failure; F17.210 Nicotine dependence, cigarettes, uncomplicated; Z88.0 Allergy status to penicillin; Z88.8 Allergy status to other drugs, medicaments and biological substances; Z79.82 Long term (current) use of aspirin; Z79.899 Other long term (current) drug therapy; Z90.81 Acquired absence of spleen; Z90.49 Acquired absence of other specified parts of digestive tract; Z98.890 Other specified postprocedural states; Z91.018 Allergy to other foods; Z20.828 Contact with and (suspected) exposure to other viral communicable diseases
CPT/HCPCS: 36415; 43239; 43450; 45385; 80053; 81001; 82962; 85025; 85610; 85730; 88305; 88313; 88342; J0131; J1200; J2250; J2704; J7030; U0003; 99152; 99153

== ENCOUNTER 2020-12-04 17:16 | Emergency (ER) | payer OTHER ==
[~2020-12-04] VITALS: Ht 180.3 cm; Wt 73.5 kg
[~2020-12-04 17:16] MED LIST changes: -ACCU-CHEK COMFORT CURVE STRIP VI ONE; -ACETAMINOPHEN IV 100 ML IV ONE; -GLYCOPYRROLATE 0.2 MG/ML 1ML VIAL ONE; -HYDROmorphone HCL 2 MG/ML VL IV PRN; -KETAMINE HCL 10 ML ONE; -LIDOCAINE 1% (LOCAL ANESTH.) PF 5ml SDV ONE; -MIDAZOLAM HCL 1MG/1ML-2 ML VIAL ONE; -NALOXONE HCL 0.4 MG/ML VIAL IV PRN; -ONDANSETRON HCL 4 MG/2 ML VIAL IV PRN; -PROPOFOL 10 MG/ML 20 ML IV ONE; -diphenhdrAMINE HCL 50 MG/1 ML VL ONE
[2020-12-04 17:58] LABS: Basophils # (auto) 0.1 10 ^3/uL (0-0.2); Basophils % (auto) 1.2 % (0.0-2.0); Eosinophils # (auto) 0.2 10 ^3/uL (0-0.8); Eosinophils % (auto) 1.9 % (0.0-7.0); Hematocrit 51.1 % (41.0-53.0); Hemoglobin 17.5 g/dL (13.5-17.5); Lymphocytes # (auto) 2.4 10 ^3/uL (0.4-5.4); Lymphocytes % (auto) 21.1 % (10.0-50.0); Mean Corpuscular Hemoglobin 33.2 pg (28.0-32.0); Mean Corpuscular Hgb Conc. 34.2 g/dL (32.0-36.0); Mean Corpuscular Volume 97.1 fL (80.0-100.0); Monocytes # (auto) 1.3 10 ^3/uL (0-1.3); Monocytes % (auto) 11.3 % (0.0-12.0); Neutrophils # (auto) 7.3 10 ^3/uL (1.6-8.6); Neutrophils % (auto) 64.5 % (37.0-80.0); Nucleated Red Blood Cells % 0.1 %; Red Blood Cells 5.26 10^6/uL (4.5-5.90); Red Cell Distribution Width 13.5 % (11.8-14.3); White Blood Cell 11.3 10^3/uL (4.4-10.8)
[2020-12-04 18:09] LABS: Albumin 3.8 g/dL (3.4-5.0); Anion Gap 3 (5-15); Blood Urea Nitrogen 18 mg/dL (7-18); Calcium 9.3 mg/dL (8.5-10.1); Carbon Dioxide 30 mmol/L (21-32); Chloride 105 mmol/L (98-107); Glucose 164 mg/dL (74-106); Magnesium 2.3 mg/dL (1.6-2.6); Potassium 4.5 mmol/L (3.5-5.1); Sodium 138 mmol/L (136-145)
[2020-12-04 18:17] LABS: Alanine Aminotransferase 26 U/L (16-61); Alkaline Phosphatase 104 U/L (45-117); Aspartate Aminotransferase 18 U/L (15-37); BUN/Creatinine Ratio 15.8; GFR African American 83 mL/min; GFR Non-African American 69 mL/min; Total Protein 8.4 g/dL (6.4-8.2)
[2020-12-04] MEDS ORDERED: HYDROcodone-ACET 5/325MG TAB PO ONE (19:30)
[2020-12-04 21:08] VITALS: BP 131/82
[2021-04-23] MEDS ORDERED: MET10LQ PO (15:29)
[2021-04-23] MEDS ORDERED: PANT40TA2 PO (15:29)
== END 2020-12-04 23:28 | disposition home or self-care (01) ==
LOC: ER 17:21
DX: S20.219A Contusion of unspecified front wall of thorax, initial encounter (principal); S20.211A Contusion of right front wall of thorax, initial encounter; E11.9 Type 2 diabetes mellitus without complications; I10 Essential (primary) hypertension; E78.5 Hyperlipidemia, unspecified; Z79.899 Other long term (current) drug therapy; Z79.82 Long term (current) use of aspirin; Z88.8 Allergy status to other drugs, medicaments and biological substances; W19.XXXA Unspecified fall, initial encounter; Y93.89 Activity, other specified; Y92.89 Other specified places as the place of occurrence of the external cause; Y99.8 Other external cause status
CPT/HCPCS: 36415; 71111; 71250; 80053; 83735; 84484; 85025; 93005

== ENCOUNTER 2020-12-07 01:41 | Emergency (ER) | payer OTHER ==
[~2020-12-07] VITALS: Ht 180.3 cm; Wt 74.4 kg
[2020-12-07] MEDS ORDERED: KETOROLAC TROMETH 60MG/2ML VIAL IM ONE (03:15)
[2020-12-07] MEDS ORDERED: HYDROcodone-ACET 7.5/325MG TAB PO ONE (03:15)
[2020-12-07 04:31] VITALS: BP 142/92
== END 2020-12-07 04:35 | disposition home or self-care (01) ==
LOC: ER 01:50
DX: S10.93XA Contusion of unspecified part of neck, initial encounter (principal); S20.229A Contusion of unspecified back wall of thorax, initial encounter; E11.9 Type 2 diabetes mellitus without complications; I10 Essential (primary) hypertension; E78.5 Hyperlipidemia, unspecified; Z90.49 Acquired absence of other specified parts of digestive tract; Z79.899 Other long term (current) drug therapy; Z88.8 Allergy status to other drugs, medicaments and biological substances; W19.XXXA Unspecified fall, initial encounter; Y93.89 Activity, other specified; Y92.89 Other specified places as the place of occurrence of the external cause; Y99.8 Other external cause status
CPT/HCPCS: 72125; 72128; 72131; 93005; 96372; 99285; J1885

== ENCOUNTER 2021-04-28 07:51 | Day surgery (SDC) | payer OTHER ==
[2021-04-23 10:23] LABS: Basophils # (auto) 0.1 10 ^3/uL (0-0.2); Eosinophils # (auto) 0.3 10 ^3/uL (0-0.8); Eosinophils % (auto) 2.8 % (0.0-7.0); Hematocrit 52.6 % (41.0-53.0); Hemoglobin 17.6 g/dL (13.5-17.5); Lymphocytes # (auto) 2.9 10 ^3/uL (0.4-5.4); Lymphocytes % (auto) 26.4 % (10.0-50.0); Mean Corpuscular Hemoglobin 32.7 pg (28.0-32.0); Mean Corpuscular Hgb Conc. 33.6 g/dL (32.0-36.0); Mean Corpuscular Volume 97.4 fL (80.0-100.0); Monocytes # (auto) 1.3 10 ^3/uL (0-1.3); Monocytes % (auto) 11.7 % (0.0-12.0); Neutrophils # (auto) 6.3 10 ^3/uL (1.6-8.6); Neutrophils % (auto) 58.1 % (37.0-80.0); Nucleated Red Blood Cells % 0.1 %; Red Cell Distribution Width 13.6 % (11.8-14.3); White Blood Cell 10.9 10^3/uL (4.4-10.8)
[2021-04-23 10:37] LABS: Urine Bacteria NONE SEEN /hpf (None Seen); Urine Blood Negative /uL (Negative); Urine Specific Gravity 1.028 (1.001-1.035); Urine Sperm PRESENT /hpf (None Seen); Urine WBC <1 /hpf (0 - 3)
[2021-04-23 12:07] LABS: Calcium 9.5 mg/dL (8.5-10.1); Potassium 4.2 mmol/L (3.5-5.1)
[2021-04-23 12:11] LABS: Albumin 3.7 g/dL (3.4-5.0); BUN/Creatinine Ratio 13.9
[2021-04-23 12:50] LABS: Bilirubin, Total 0.7 mg/dL (0.2-1.0); Total Protein 7.9 g/dL (6.4-8.2)
[~2021-04-28] VITALS: Ht 180.3 cm; Wt 73.5 kg
[~2021-04-28 07:51] MED LIST changes: -LOSA25TA38 PO; +MET10LQ PO; +PANT40TA2 PO
[2021-04-28] MEDS ORDERED: ceFAZolin 1GM/50ML 100 ML IV ONE (08:37)
[2021-04-28] MEDS ORDERED: LIDOCAINE W/ EPINEPHRINE 1% 20ML VIAL ONE (08:58)
[2021-04-28] MEDS ORDERED: BUPIVACAINE 0.25% INJ 50ML VIAL ONE (08:58)
[2021-04-28] MEDS ORDERED: MEPERIDINE HCL (25 MG/ML) 1ML VIAL ONE (09:01)
[2021-04-28] MEDS ORDERED: MIDAZOLAM HCL 2MG/2ML 2ml VIAL (1mg/ml) ONE (09:02)
[2021-04-28] MEDS ORDERED: fentaNYL CITRATE 100 MCG/2 ML VL ONE (09:02)
[2021-04-28] MEDS ORDERED: PROPOFOL 10 MG/ML 20 ML IV ONE ×2 (09:12→11:14)
[2021-04-28] MEDS ORDERED: DexAMETHasone SOD PHOS 10MG/1ML VIAL INJ ONE (09:12)
[2021-04-28] MEDS ORDERED: KETOROLAC TROMETH 30 MG/ML 1ML VIAL IV ONE (09:15)
[2021-04-28] MEDS ORDERED: ACCU-CHEK COMFORT CURVE STRIP VI ONE (09:15)
[2021-04-28] MEDS ORDERED: HYDROmorphone HCL 2 MG/ML VL IV PRN (09:15)
[2021-04-28] MEDS ORDERED: hydrALAZINE HCL 20 MG/ML VL IV PRN (09:15)
[2021-04-28] MEDS ORDERED: MORPHINE SULFATE 4 MG/ML SYR/VIAL IV PRN (09:15)
[2021-04-28] MEDS ORDERED: MIDAZOLAM HCL 2MG/2ML 2ml VIAL (1mg/ml) IV PRN (09:15)
[2021-04-28] MEDS ORDERED: ePHEDrine SULFATE 50 MG/ML AMP IV PRN (09:15)
[2021-04-28] MEDS ORDERED: LABETALOL HCL 5 MG/ML 4ML SYRINGE IV PRN (09:15)
[2021-04-28] MEDS ORDERED: ONDANSETRON HCL 4 MG/2 ML VIAL IV PRN (09:15)
[2021-04-28] MEDS ORDERED: POVIDONE IODINE 10 % TOPICAL OINT 30GM TOP ONE (09:30)
[2021-04-28 10:45] VITALS: BP 112/68
== END 2021-04-28 11:00 | disposition home or self-care (01) ==
LOC: SUR 07:51
PROVIDERS: ATTEND Surgery
DX: R22.42 Localized swelling, mass and lump, left lower limb (principal); D23.72 Other benign neoplasm of skin of left lower limb, including hip; E78.5 Hyperlipidemia, unspecified; K21.9 Gastro-esophageal reflux disease without esophagitis; K44.9 Diaphragmatic hernia without obstruction or gangrene; E03.9 Hypothyroidism, unspecified; K27.9 Peptic ulcer, site unspecified, unspecified as acute or chronic, without hemorrhage or perforation; E11.22 Type 2 diabetes mellitus with diabetic chronic kidney disease; I12.9 Hypertensive chronic kidney disease with stage 1 through stage 4 chronic kidney disease, or unspecified chronic kidney disease; N18.9 Chronic kidney disease, unspecified; G89.29 Other chronic pain; Z20.822 Contact with and (suspected) exposure to COVID-19; Z98.890 Other specified postprocedural states; Z79.899 Other long term (current) drug therapy; Z88.8 Allergy status to other drugs, medicaments and biological substances; Z79.82 Long term (current) use of aspirin; Z86.73 Personal history of transient ischemic attack (TIA), and cerebral infarction without residual deficits
CPT/HCPCS: 27337; 36415; 80053; 81001; 85025; 88305; J0690; J1100; J2175; J2250; J2704; J3010; J3490; U0003

== ENCOUNTER → 2023-01-03 | Outpatient (CLI) | payer MEDICARE ==
[2023-01-03 13:10] LABS: Basophils # (auto) 0.2 10 ^3/uL (0-0.2); Basophils % (auto) 2.1 % (0.0-2.0); Eosinophils # (auto) 0.2 10 ^3/uL (0-0.8); Eosinophils % (auto) 1.8 % (0.0-7.0); Hematocrit 44.4 % (41.0-53.0); Hemoglobin 15.7 g/dL (13.5-17.5); Lymphocytes # (auto) 2.3 10 ^3/uL (0.4-5.4); Lymphocytes % (auto) 25.5 % (10.0-50.0); Mean Corpuscular Hgb Conc. 35.3 g/dL (32.0-36.0); Mean Corpuscular Volume 93.4 fL (80.0-100.0); Monocytes # (auto) 0.9 10 ^3/uL (0-1.3); Monocytes % (auto) 10.4 % (0.0-12.0); Neutrophils # (auto) 5.3 10 ^3/uL (1.6-8.6); Neutrophils % (auto) 60.2 % (37.0-80.0); Nucleated Red Blood Cells % 0.1 %; Red Blood Cells 4.75 10^6/uL (4.5-5.90); Red Cell Distribution Width 13.7 % (11.8-14.3); White Blood Cell 8.9 10^3/uL (4.4-10.8)
[2023-01-03 13:56] LABS: Albumin 3.3 g/dL (3.4-5.0); Calcium 8.6 mg/dL (8.5-10.1); Potassium 4.2 mmol/L (3.5-5.1)
[2023-01-03 14:02] LABS: Free T4 (Free Thyroxine) 1.18 ng/dL (0.89-1.76); Prostate Specific Antigen 1.19 ng/mL (0.0-4.0)
[2023-01-03 14:04] LABS: BUN/Creatinine Ratio 11.5 (10.0-20.0); Bilirubin, Total 1.2 mg/dL (0.2-1.0); Total Protein 7.4 g/dL (6.4-8.2)
== END | disposition home or self-care (01) ==
LOC: LAB 12:39
PROVIDERS: ATTEND Nurse Practitioner Family
DX: I10 Essential (primary) hypertension (principal); E11.9 Type 2 diabetes mellitus without complications; E03.9 Hypothyroidism, unspecified; R35.1 Nocturia; F52.0 Hypoactive sexual desire disorder
CPT/HCPCS: 36415; 80053; 80061; 82043; 83036; 84153; 84403; 84439; 84443; 85025

== ENCOUNTER 2023-02-17 19:40 | Inpatient (IN) | payer OTHER ==
[~2023-02-17] VITALS: Ht 177.8 cm; Wt 79.9 kg
[2023-02-17 21:15] LABS: Albumin 3.6 g/dL (3.4-5.0); Calcium 9.2 mg/dL (8.5-10.1); Magnesium 1.9 mg/dL (1.6-2.6); Potassium 3.9 mmol/L (3.5-5.1)
[2023-02-17 21:17] LABS: BUN/Creatinine Ratio 16.2 (10.0-20.0); Total Protein 7.7 g/dL (6.4-8.2)
[2023-02-17] MEDS ORDERED: IOHEXOL 300 MG/ML 100ML BOTTLE IJ ONE (21:19)
[2023-02-17 21:28] LABS: Basophils # (auto) 0.1 10 ^3/uL (0-0.2); Basophils % (auto) 0.9 % (0.0-2.0); Eosinophils # (auto) 0.3 10 ^3/uL (0-0.8); Eosinophils % (auto) 2.3 % (0.0-7.0); Hematocrit 43.4 % (41.0-53.0); Hemoglobin 14.7 g/dL (13.5-17.5); Lymphocytes # (auto) 3.9 10 ^3/uL (0.4-5.4); Lymphocytes % (auto) 32.8 % (10.0-50.0); Mean Corpuscular Hemoglobin 32.7 pg (28.0-32.0); Mean Corpuscular Hgb Conc. 33.9 g/dL (32.0-36.0); Mean Corpuscular Volume 96.3 fL (80.0-100.0); Monocytes # (auto) 1.3 10 ^3/uL (0-1.3); Monocytes % (auto) 11.2 % (0.0-12.0); Neutrophils # (auto) 6.3 10 ^3/uL (1.6-8.6); Neutrophils % (auto) 52.8 % (37.0-80.0); Nucleated Red Blood Cells % 0.1 %; Red Cell Distribution Width 13.7 % (11.8-14.3); White Blood Cell 11.9 10^3/uL (4.4-10.8)
[2023-02-17 21:35] LABS: Urine Bacteria FEW /hpf (None Seen); Urine Blood Negative /uL (Negative); Urine WBC 1 /hpf (0 - 3)
[2023-02-17 21:40] LABS: INR 1.08 (0.9-1.15); Partial Thromboplastin Time 35.9 sec (24.6-33.4)
[2023-02-17] MEDS ORDERED: OCTREOTIDE ACETATE 100 MCG in SODIUM CHL 0.9% 50 ML IV ONE (23:00)
[2023-02-17] MEDS ORDERED: PANTOPRAZOLE 80 MG in SODIUM CHL 0.9% 100 ML IV ONE (23:00)
[2023-02-17] MEDS ORDERED: PANTOPRAZOLE 40mg/50ML NS AE 50 ML IV ONE (23:00)
[2023-02-17] MEDS ORDERED: PANTOPRAZOLE 40 MG/10 ML VIAL INJ IV ONE (23:35)
[2023-02-18] MEDS ORDERED: OCTREOTIDE ACETATE 100 MCG/ML VL ONE (03:45)
[2023-02-18] MEDS ORDERED: OCTREOTIDE ACETATE 500 MCG/ML VL ONE ×2 (03:45→05:06)
[2023-02-18] MEDS: OCTREOTIDE ACETATE 500 MCG in SODIUM CHL 0.9% 99 ML IV SCH ×3 (04:55→22:21)
[2023-02-18] MEDS ORDERED: MORPHINE SULFATE INJ 2 MG/ml SYRG IV PRN (05:30)
[2023-02-18] MEDS ORDERED: ACETAMINOPHEN 325 MG TAB PO PRN (05:30)
[2023-02-18] MEDS ORDERED: DOCUSATE SOD 100 MG CAP PO PRN (05:30)
[2023-02-18] MEDS ORDERED: NITROGLYCERIN 0.4 MG SL TAB SL PRN (05:30)
[2023-02-18] MEDS ORDERED: DEXTROSE (50%) 50ML SYRG IV PRN (05:30)
[2023-02-18] MEDS ORDERED: HYDROcodone-ACET 5/325MG TAB PO PRN (05:30)
[2023-02-18] MEDS: InsuLIN REG 1unit/0.01ml Soln (100units/ml) SC SCH ×3 (06:00→20:09)
[2023-02-18] MEDS: ACCU-CHEK COMFORT CURVE STRIP VI SCH ×3 (06:06→19:54)
[2023-02-18] MEDS: SODIUM CHLORIDE 0.9% 1,000 ML IV SCH ×2 (06:14→22:18)
[2023-02-18] MEDS: LEVOTHYROXINE SODIUM 25 MCG TAB PO SCH (06:46)
[2023-02-18 07:37] LABS: Basophils # (auto) 0.2 10 ^3/uL (0-0.2); Basophils % (auto) 1.4 % (0.0-2.0); Eosinophils # (auto) 0.3 10 ^3/uL (0-0.8); Eosinophils % (auto) 3.2 % (0.0-7.0); Hematocrit 42.5 % (41.0-53.0); Hemoglobin 14.7 g/dL (13.5-17.5); Lymphocytes # (auto) 3.5 10 ^3/uL (0.4-5.4); Lymphocytes % (auto) 32.9 % (10.0-50.0); Mean Corpuscular Hemoglobin 33.5 pg (28.0-32.0); Mean Corpuscular Hgb Conc. 34.5 g/dL (32.0-36.0); Mean Corpuscular Volume 97.1 fL (80.0-100.0); Monocytes # (auto) 1.5 10 ^3/uL (0-1.3); Monocytes % (auto) 13.7 % (0.0-12.0); Neutrophils # (auto) 5.2 10 ^3/uL (1.6-8.6); Neutrophils % (auto) 48.8 % (37.0-80.0); Nucleated Red Blood Cells % 0.1 %; Red Blood Cells 4.37 10^6/uL (4.5-5.90); Red Cell Distribution Width 13.7 % (11.8-14.3); White Blood Cell 10.7 10^3/uL (4.4-10.8)
[2023-02-18 08:06] LABS: Albumin 3.3 g/dL (3.4-5.0); Calcium 8.8 mg/dL (8.5-10.1); Potassium 3.8 mmol/L (3.5-5.1)
[2023-02-18 08:11] LABS: BUN/Creatinine Ratio 13.5 (10.0-20.0); Bilirubin, Total 1.4 mg/dL (0.2-1.0); Total Protein 6.9 g/dL (6.4-8.2)
[2023-02-18] MEDS: cefTRIAXone 1GM/50ML D5W 50 ML IV SCH (09:00)
[2023-02-18] MEDS: PANTOPRAZOLE 40 MG/10 ML VIAL INJ IV SCH ×2 (11:17→21:59)
[2023-02-18] MEDS: MORPHINE SULFATE INJ 2 MG/ml SYRG IV PRN ×2 (11:24→18:00)
[2023-02-18] MEDS: ONDANSETRON HCL 4 MG/2 ML VIAL IV PRN ×2 (11:25→17:59)
[2023-02-18 12:12] LABS: Urine WBC None Seen /hpf (0 - 3)
[2023-02-18 12:25] LABS: Urine Bacteria NONE SEEN /hpf (None Seen); Urine Blood Negative /uL (Negative); Urine Specific Gravity 1.019 (1.001-1.035)
[2023-02-19] MEDS: InsuLIN REG 1unit/0.01ml Soln (100units/ml) SC SCH ×4 (06:00→17:43)
[2023-02-19 06:25] LABS: Basophils # (auto) 0.1 10 ^3/uL (0-0.2); Basophils % (auto) 0.4 % (0.0-2.0); Eosinophils # (auto) 0.2 10 ^3/uL (0-0.8); Eosinophils % (auto) 1.2 % (0.0-7.0); Hematocrit 40.2 % (41.0-53.0); Hemoglobin 13.9 g/dL (13.5-17.5); Lymphocytes # (auto) 0.7 10 ^3/uL (0.4-5.4); Lymphocytes % (auto) 4.1 % (10.0-50.0); Mean Corpuscular Hemoglobin 33.2 pg (28.0-32.0); Mean Corpuscular Hgb Conc. 34.7 g/dL (32.0-36.0); Mean Corpuscular Volume 95.8 fL (80.0-100.0); Monocytes % (auto) 5.8 % (0.0-12.0); Neutrophils # (auto) 14.9 10 ^3/uL (1.6-8.6); Neutrophils % (auto) 88.5 % (37.0-80.0); Red Cell Distribution Width 13.7 % (11.8-14.3); White Blood Cell 16.8 10^3/uL (4.4-10.8)
[2023-02-19] MEDS: ACCU-CHEK COMFORT CURVE STRIP VI SCH ×4 (06:26→17:43)
[2023-02-19] MEDS: LEVOTHYROXINE SODIUM 25 MCG TAB PO SCH (06:27)
[2023-02-19 06:51] LABS: Potassium 3.9 mmol/L (3.5-5.1)
[2023-02-19 07:00] LABS: BUN/Creatinine Ratio 10.9 (10.0-20.0); Bilirubin, Total 2.5 mg/dL (0.2-1.0); Calcium 8.6 mg/dL (8.5-10.1); Total Protein 6.6 g/dL (6.4-8.2)
[2023-02-19] MEDS: OCTREOTIDE ACETATE 500 MCG in SODIUM CHL 0.9% 99 ML IV SCH ×2 (07:49→15:39)
[2023-02-19] MEDS: cefTRIAXone 1GM/50ML D5W 50 ML IV SCH (10:07)
[2023-02-19] MEDS: PANTOPRAZOLE 40 MG/10 ML VIAL INJ IV SCH ×2 (10:08→21:40)
[2023-02-19 13:00] VITALS: BP 119/70
[2023-02-19] MEDS: SODIUM CHLORIDE 0.9% 1,000 ML IV SCH (15:01)
[2023-02-19 17:00] VITALS: BP 110/59
[2023-02-19] MEDS: MORPHINE SULFATE INJ 2 MG/ml SYRG IV PRN (19:54)
[2023-02-19 20:00] VITALS: BP 138/72
[2023-02-19 22:00] VITALS: BP 138/72
[2023-02-20] MEDS: ACCU-CHEK COMFORT CURVE STRIP VI SCH ×4 (00:41→18:00)
[2023-02-20] MEDS: MORPHINE SULFATE INJ 2 MG/ml SYRG IV PRN (00:42)
[2023-02-20] MEDS: OCTREOTIDE ACETATE 500 MCG in SODIUM CHL 0.9% 99 ML IV SCH (01:20)
[2023-02-20 05:00] VITALS: BP 136/70
[2023-02-20] MEDS: LEVOTHYROXINE SODIUM 25 MCG TAB PO SCH (05:20)
[2023-02-20] MEDS: InsuLIN REG 1unit/0.01ml Soln (100units/ml) SC SCH ×4 (05:20→18:00)
[2023-02-20] MEDS ORDERED: diphenhdrAMINE HCL 50 MG/1 ML VL ONE (07:36)
[2023-02-20] MEDS ORDERED: fentaNYL CITRATE 100 MCG/2 ML VL ONE (07:36)
[2023-02-20] MEDS ORDERED: MIDAZOLAM HCL 5 MG/ML-1ML VIAL ONE (07:36)
[2023-02-20 09:00] VITALS: BP 151/81
[2023-02-20] MEDS ORDERED: MIDAZOLAM HCL 5 MG/ML-1ML VIAL IV ONE (09:15)
[2023-02-20] MEDS ORDERED: fentaNYL CITRATE 100 MCG/2 ML VL IV ONE (09:15)
[2023-02-20] MEDS ORDERED: diphenhdrAMINE HCL 50 MG/1 ML VL IV ONE ×2 (09:15→09:16)
[2023-02-20] MEDS: cefTRIAXone 1GM/50ML D5W 50 ML IV SCH (10:36)
[2023-02-20] MEDS: SUCRALFATE 1 GM/10 ML ORAL SUSP PO SCH ×2 (10:36→17:00)
[2023-02-20] MEDS: PANTOPRAZOLE 40 MG/10 ML VIAL INJ IV SCH (10:36)
[2023-02-20] MEDS: SODIUM CHLORIDE 0.9% 1,000 ML IV SCH (12:26)
[2023-02-20 13:00] VITALS: BP 135/72
[2023-02-20 14:28] LABS: Hepatitis C Antibody Negative (Negative)
[2023-02-20] MEDS ORDERED: METF-370 PO (14:31)
[2023-02-20] MEDS ORDERED: CARV6.2551 PO (14:31)
[2023-02-20] MEDS ORDERED: SUCR1TAB PO (14:31)
[2023-02-20] MEDS ORDERED: ATOR20TA50 PO (14:31)
[2023-02-20] MEDS ORDERED: GLIP5TAB12 PO (14:31)
[2023-02-20] MEDS ORDERED: LEVO100C3 PO (14:31)
[2023-02-20] MEDS ORDERED: PANT40TA2 PO (14:32)
[2023-02-20 16:08] LABS: Basophils # (auto) 0 10 ^3/uL (0-0.2); Basophils % (auto) 0.5 % (0.0-2.0); Eosinophils # (auto) 0.3 10 ^3/uL (0-0.8); Hematocrit 43.2 % (41.0-53.0); Hemoglobin 14.6 g/dL (13.5-17.5); Lymphocytes % (auto) 22.9 % (10.0-50.0); Mean Corpuscular Hgb Conc. 33.9 g/dL (32.0-36.0); Mean Corpuscular Volume 97.4 fL (80.0-100.0); Monocytes % (auto) 11.2 % (0.0-12.0); Neutrophils # (auto) 5.4 10 ^3/uL (1.6-8.6); Neutrophils % (auto) 62.4 % (37.0-80.0); Nucleated Red Blood Cells % 0.2 %; Red Blood Cells 4.44 10^6/uL (4.5-5.90); Red Cell Distribution Width 13.7 % (11.8-14.3); White Blood Cell 8.7 10^3/uL (4.4-10.8)
[2023-02-20 17:00] VITALS: BP 133/67
== END 2023-02-20 18:34 | disposition home or self-care (01) | DRG 391 ==
LOC: ER 19:40 → TELE 02-18 05:43 → TELE-WESTW 02-19 11:09
PROVIDERS: ADMIT Nurse Practitioner Family; ATTEND Internal Medicine
PROC: 0DB68ZX Excision of Stomach, Via Natural or Artificial Opening Endoscopic, Diagnostic (ICD-10-PCS; 2023-02-20)
PROC: 0DB38ZX Excision of Lower Esophagus, Via Natural or Artificial Opening Endoscopic, Diagnostic (ICD-10-PCS; 2023-02-20)
PROC: 0DB98ZX Excision of Duodenum, Via Natural or Artificial Opening Endoscopic, Diagnostic (ICD-10-PCS; principal; 2023-02-20 09:05)
DX: K29.70 Gastritis, unspecified, without bleeding (principal); K29.71 Gastritis, unspecified, with bleeding; D72.829 Elevated white blood cell count, unspecified; E11.9 Type 2 diabetes mellitus without complications; E78.5 Hyperlipidemia, unspecified; F17.200 Nicotine dependence, unspecified, uncomplicated; I10 Essential (primary) hypertension; I25.10 Atherosclerotic heart disease of native coronary artery without angina pectoris; K22.70 Barrett's esophagus without dysplasia; K31.9 Disease of stomach and duodenum, unspecified; K44.9 Diaphragmatic hernia without obstruction or gangrene; Z82.49 Family history of ischemic heart disease and other diseases of the circulatory system; Z88.8 Allergy status to other drugs, medicaments and biological substances; Z86.711 Personal history of pulmonary embolism; Z87.11 Personal history of peptic ulcer disease; Z90.81 Acquired absence of spleen; Z91.018 Allergy to other foods; Z90.49 Acquired absence of other specified parts of digestive tract; I25.2 Old myocardial infarction
CPT/HCPCS: 36415; 43239; 71045; 74177; 80053; 81001; 82962; 83690; 83735; 84484; 85025; 85610; 85730; 86803; 86850; 86900; 86901; 87340; 93005; 96365; 96367; 96368; 96375; C9113; G0378; J0696; J1815; J2250; J2405

== ENCOUNTER 2023-07-21 10:35 | Day surgery (SDC) | payer OTHER ==
[2023-07-19 09:44] LABS: Basophils # (auto) 0.1 10 ^3/uL (0-0.2); Basophils % (auto) 1.2 % (0.0-2.0); Eosinophils # (auto) 0.3 10 ^3/uL (0-0.8); Eosinophils % (auto) 2.5 % (0.0-7.0); Hematocrit 44.4 % (41.0-53.0); Hemoglobin 15.1 g/dL (13.5-17.5); Lymphocytes # (auto) 3.3 10 ^3/uL (0.4-5.4); Lymphocytes % (auto) 30.4 % (10.0-50.0); Mean Corpuscular Hemoglobin 32.5 pg (28.0-32.0); Mean Corpuscular Hgb Conc. 34.1 g/dL (32.0-36.0); Mean Corpuscular Volume 95.4 fL (80.0-100.0); Monocytes # (auto) 1.5 10 ^3/uL (0-1.3); Monocytes % (auto) 13.5 % (0.0-12.0); Neutrophils # (auto) 5.7 10 ^3/uL (1.6-8.6); Neutrophils % (auto) 52.4 % (37.0-80.0); Red Blood Cells 4.65 10^6/uL (4.5-5.90); Red Cell Distribution Width 13.4 % (11.8-14.3); White Blood Cell 10.8 10^3/uL (4.4-10.8)
[2023-07-19 10:17] LABS: Alanine Aminotransferase 35 U/L (7-40); Albumin 4.4 g/dL (3.2-4.8); Alkaline Phosphatase 108 U/L (46-116); Anion Gap 6 (5-15); Aspartate Aminotransferase 16 U/L (13-40); BUN/Creatinine Ratio 10.1 (10.0-20.0); Bilirubin, Total 1.5 mg/dL (0.2-1.0); Blood Urea Nitrogen 12 mg/dL (9-23); Calcium 9.5 mg/dL (8.5-10.1); Carbon Dioxide 28 mmol/L (20-30); Chloride 103 mmol/L (98-107); Glucose 230 mg/dL (74-106); Potassium 4.4 mmol/L (3.5-5.1); Sodium 137 mmol/L (136-145); Total Protein 7.5 g/dL (5.7-8.2)
[2023-07-19 10:32] LABS: INR 1.09 (0.9-1.15); Partial Thromboplastin Time 33.6 SEC (24.5-34.5); Prothrombin Time 11.4 sec (9.3-11.8)
[~2023-07-21] VITALS: Ht 180.3 cm; Wt 75.3 kg
[~2023-07-21 10:35] MED LIST changes: -ASPI-394 PO; -CAR3125T PO; +CARV6.2551 PO; -EMPA1TAB21 PO; +GLIP5TAB12 PO; +LEVO150C3 PO; -LEVO25TA6 PO; -MET10LQ PO; -OMEP20CA74 PO; +SUCR1TAB PO
[2023-07-21 12:06] VITALS: PULSE 64; RESP 16; O2SAT 98
[2023-07-21] MEDS: diphenhdrAMINE HCL 50 MG/1 ML VL ONE ×2 (12:16→12:17)
[2023-07-21] MEDS: MIDAZOLAM HCL 2MG/2ML 2ml VIAL (1mg/ml) ONE ×4 (12:16→12:30)
[2023-07-21] MEDS: fentaNYL CITRATE 100 MCG/2 ML VL ONE ×3 (12:16→12:27)
[2023-07-21 12:41] VITALS: PULSE 68; RESP 12; TEMP 97.5; O2SAT 99
[2023-07-21 13:55] VITALS: BP 134/80; PULSE 64; RESP 18; O2SAT 97
== END 2023-07-21 14:23 | disposition home or self-care (01) ==
LOC: GI 10:35
PROVIDERS: ATTEND Internal Medicine Gastroenterology
DX: Z12.11 Encounter for screening for malignant neoplasm of colon (principal); Q43.8 Other specified congenital malformations of intestine; K64.0 First degree hemorrhoids; K63.5 Polyp of colon; Z90.49 Acquired absence of other specified parts of digestive tract; Z98.890 Other specified postprocedural states; E11.9 Type 2 diabetes mellitus without complications
CPT/HCPCS: 36415; 45385; 80053; 82962; 85025; 85610; 85730; J1200; J2250; J3010; 99152

== ENCOUNTER → 2023-11-21 | Outpatient (CLI) | payer OTHER ==
[~2023-11-21] MED LIST changes: -ATO40T PO; +ATOR-507 PO; -GLIP5TAB12 PO; +GLIP5TAB21 PO
[2023-11-21 11:29] LABS: Basophils # (auto) 0.1 10 ^3/uL (0-0.2); Basophils % (auto) 0.8 % (0.0-2.0); Eosinophils # (auto) 0.2 10 ^3/uL (0-0.8); Eosinophils % (auto) 2.1 % (0.0-7.0); Hematocrit 49.8 % (41.0-53.0); Hemoglobin 16.3 g/dL (13.5-17.5); Lymphocytes # (auto) 2.7 10 ^3/uL (0.4-5.4); Lymphocytes % (auto) 29.7 % (10.0-50.0); Mean Corpuscular Hemoglobin 32.1 pg (28.0-32.0); Mean Corpuscular Hgb Conc. 32.7 g/dL (32.0-36.0); Mean Corpuscular Volume 98.3 fL (80.0-100.0); Monocytes # (auto) 1.2 10 ^3/uL (0-1.3); Monocytes % (auto) 13.2 % (0.0-12.0); Neutrophils # (auto) 4.9 10 ^3/uL (1.6-8.6); Neutrophils % (auto) 54.2 % (37.0-80.0); Nucleated Red Blood Cells % 0.1 %; Red Blood Cells 5.06 10^6/uL (4.5-5.90); Red Cell Distribution Width 14.1 % (11.8-14.3)
[2023-11-21 11:52] LABS: Alanine Aminotransferase 20 U/L (7-40); Alkaline Phosphatase 90 U/L (46-116); Anion Gap 7 (5-15); Calcium 9.8 mg/dL (8.5-10.1); Carbon Dioxide 27 mmol/L (20-30); Chloride 106 mmol/L (98-107); Potassium 4.8 mmol/L (3.5-5.1); Sodium 140 mmol/L (136-145)
[2023-11-21 11:55] LABS: Aspartate Aminotransferase 17 U/L (13-40); BUN/Creatinine Ratio 8.6 (10.0-20.0); Blood Urea Nitrogen 10 mg/dL (9-23); Glucose 122 mg/dL (74-106)
[2023-11-21 11:57] LABS: Bilirubin, Total 0.8 mg/dL (0.2-1.0)
[2023-11-21 11:58] LABS: Albumin 4.6 g/dL (3.2-4.8); Total Protein 7.6 g/dL (5.7-8.2)
== END | disposition home or self-care (01) ==
LOC: LAB 10:55
PROVIDERS: ATTEND Internal Medicine Gastroenterology
DX: R94.5 Abnormal results of liver function studies (principal); B96.81 Helicobacter pylori [H. pylori] as the cause of diseases classified elsewhere
CPT/HCPCS: 36415; 80053; 82728; 83036; 85025; 86038

== ENCOUNTER → 2023-11-24 | Outpatient (CLI) | payer OTHER ==
[~2023-11-24] MED LIST changes: +ATO40T PO; -ATOR-507 PO; +GLIP5TAB12 PO; -GLIP5TAB21 PO
[2023-11-24 12:34] LABS: Basophils # (auto) 0.1 10 ^3/uL (0-0.2); Basophils % (auto) 0.6 % (0.0-2.0); Eosinophils # (auto) 0.2 10 ^3/uL (0-0.8); Eosinophils % (auto) 1.8 % (0.0-7.0); Hematocrit 48.6 % (41.0-53.0); Hemoglobin 16.2 g/dL (13.5-17.5); Lymphocytes # (auto) 2.8 10 ^3/uL (0.4-5.4); Lymphocytes % (auto) 28.1 % (10.0-50.0); Mean Corpuscular Hemoglobin 32.5 pg (28.0-32.0); Mean Corpuscular Hgb Conc. 33.4 g/dL (32.0-36.0); Mean Corpuscular Volume 97.3 fL (80.0-100.0); Monocytes # (auto) 1.1 10 ^3/uL (0-1.3); Monocytes % (auto) 10.8 % (0.0-12.0); Neutrophils # (auto) 5.8 10 ^3/uL (1.6-8.6); Neutrophils % (auto) 58.7 % (37.0-80.0); Nucleated Red Blood Cells % 0.1 %; Red Blood Cells 4.99 10^6/uL (4.5-5.90); White Blood Cell 9.9 10^3/uL (4.4-10.8)
[2023-11-24 14:21] LABS: Creatinine, Urine 65.82 mg/dL (30.0-125.0)
[2023-11-24 14:22] LABS: Alanine Aminotransferase 24 U/L (7-40); Albumin 4.7 g/dL (3.2-4.8); Alkaline Phosphatase 89 U/L (46-116); Anion Gap 8 (5-15); Aspartate Aminotransferase 22 U/L (13-40); BUN/Creatinine Ratio 11.3 (10.0-20.0); Blood Urea Nitrogen 13 mg/dL (9-23); Calcium 10.2 mg/dL (8.5-10.1); Carbon Dioxide 26 mmol/L (20-30); Chloride 106 mmol/L (98-107); Cholesterol 135 mg/dL (< 200); Glucose 129 mg/dL (74-106); HDL Cholesterol 42 mg/dL (40-59); LDL Cholesterol 76 mg/dL (< 100); Potassium 4.7 mmol/L (3.5-5.1); Sodium 140 mmol/L (136-145); Triglycerides 130 mg/dL (< 150)
== END | disposition home or self-care (01) ==
LOC: LAB 12:05
PROVIDERS: ATTEND Nurse Practitioner Family
DX: E11.42 Type 2 diabetes mellitus with diabetic polyneuropathy (principal); E03.9 Hypothyroidism, unspecified; E78.2 Mixed hyperlipidemia; E66.01 Morbid (severe) obesity due to excess calories
CPT/HCPCS: 36415; 80053; 80061; 82043; 82306; 82570; 83036; 84439; 84443; 85025

== ENCOUNTER 2024-04-21 16:45 | Emergency (ER) | payer OTHER ==
[~2024-04-21] VITALS: Ht 177.8 cm; Wt 72.1 kg
[~2024-04-21 16:45] MED LIST changes: -ATO40T PO; +ATOR-507 PO; -GLIP5TAB12 PO; +GLIP5TAB21 PO
[2024-04-21 18:30] VITALS: BP 135/80; PULSE 75; RESP 16; TEMP 98; O2SAT 97
[2024-04-21] MEDS ORDERED: HYDROcodone-ACET 5/325MG TAB PO ONE (18:30)
[2024-04-21] MEDS ORDERED: HYDR-4902 PO (18:34)
== END 2024-04-21 19:07 | disposition home or self-care (01) ==
LOC: ER 16:57
DX: S63.502A Unspecified sprain of left wrist, initial encounter (principal); E11.9 Type 2 diabetes mellitus without complications; E78.5 Hyperlipidemia, unspecified; I10 Essential (primary) hypertension; Z91.018 Allergy to other foods; Z88.8 Allergy status to other drugs, medicaments and biological substances; Z79.84 Long term (current) use of oral hypoglycemic drugs; Z79.899 Other long term (current) drug therapy; Z86.73 Personal history of transient ischemic attack (TIA), and cerebral infarction without residual deficits; Z90.49 Acquired absence of other specified parts of digestive tract; Z98.890 Other specified postprocedural states; W50.2XXA Accidental twist by another person, initial encounter; Y93.89 Activity, other specified; Y92.89 Other specified places as the place of occurrence of the external cause; Y99.8 Other external cause status
CPT/HCPCS: 73110; 73130

== ENCOUNTER 2024-11-04 21:17 | Emergency (ER) | payer OTHER ==
[~2024-11-04] VITALS: Ht 180.3 cm; Wt 72.9 kg
[~2024-11-04 21:17] MED LIST changes: +HYDR-4902 PO
[2024-11-04 21:59] VITALS: BP 151/92; PULSE 89; RESP 14; O2SAT 97
[2024-11-04] MEDS ORDERED: CEPH500C PO (22:47)
[2024-11-04] MEDS ORDERED: ACET500T58 PO (22:47)
--- NOTE | 2024-11-04 22:47 | ED.PDOC ---
HPI Comments 69-YEAR-OLD MALE PRESENTS TO ER WITH COMPLAINTS OF LACERATION TO RIGHT THUMB X 2.5 HOURS. PATIENT REPORTS THAT A PIECE OF BROKEN GLASS ACCIDENTALLY MADE IMPACT WITH HIS RIGHT THUMB 2.5 HOURS PRIOR TO ARRIVAL TO ER WHEN HE WAS WASHING DISHES AND SUSTAINED LACERATION TO RIGHT THUMB AT THAT TIME. HE REPORTS 4/10 PAIN TO RIGHT THUMB WITHOUT RADIATION. DENIES USE OF MEDICATIONS FOR CURRENT SYMPTOMS. PATIENT PRESENTS TO ER AMBULATORY ON ARRIVAL, WITH STEADY GAIT, IN NO DISTRESS AND REPORTS NUMBNESS/TINGLING TO RIGHT THUMB. STATES HE IS UNSURE WHEN HIS LAST TETANUS SHOT WAS. DENIES ANY FURTHER SYMPTOMS/COMPLAINTS Chief Complaint: Upper Extremity Time Seen by MD: 21:31 Primary Care Provider: Halie MARKS Reviewed Notes: Nurses Notes, Medications, Allergies Allergies: Coded Allergies: Chlorpromazine (Verified Allergy, Unknown, 07/20/20) Onion (Verified Allergy, Unknown, 07/20/20) Marisa reports onion allergy. Promethazine (Verified Allergy, Unknown, 07/20/20) Home Meds Active Scripts Cephalexin Monohydrate (Cephalexin) 500 Mg Cap, 1 CAP PO BID for 7 Days, #14 CAP 0 Refills Prov:JENIFER LEWIS 11/04/24 Acetaminophen (Acetaminophen) 500 Mg Tab, 500 MG PO Q4HPRN, #30 TAB 0 Refills Prov:JENIFER LEWIS 11/04/24 Hydrocodone-Acetaminophen (Hydrocodone Bitartrate/AC 5-325 mg) 1 Tab Tab, 1 TAB PO Q6HPRN PRN, #10 TAB Prov:NIKO DE LA ROSA PAC 04/21/24 Pantoprazole Sodium Sesquihydr (Protonix) 40 Mg Tab, 40 MG PO BID for 30 Days, #60 TAB Prov:VIDHYA CORNELL MD 02/20/23 Reported Medications Levothyroxine Sodium (Levothyroxine Sodium) 150 Mcg Cap, 150 MCG PO DAILY, CAP 07/19/23 Glipizide (Glipizide) 5 Mg Tab, 5 MG PO BID for 30 Days, MG 02/20/23 Sucralfate (Sucralfate) 1 Gm Tab, 1 GM PO HS, GM 02/20/23 Carvedilol (Carvedilol) 6.25 Mg Tab, 6.25 MG PO BID for 30 Days, MG 02/20/23 Atorvastatin Calcium (Lipitor) 40 Mg Tab, 1 TAB PO DAILY, #30 TAB 5 Refills 01/12/16 Mode of Arrival: Ambulatory Complexity: Simple Last Tetanus: Unknown Laceration Length (cm): 2 Skin Type: Flap Past Medical History PAST MEDICAL HISTORY: Angina, CAD, DM, High Lipids, HTN, OH, PE Past Medical History (Other): 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 Surgical History: Cholecystectomy, PTCA Surgical History (Other): EXPLORATORY LAPAROTOMY Family History Family History: Family hx of HTN Social History Smoker: Non-Smoker Alcohol: Denies ETOH Use Drugs: Denies Drug Use Lives In: Home Constitutional: denies: chills, diaphoresis, fatigue, fever, malaise, sweats, weakness, others EENTM: denies: blurred vision, double vision, ear bleeding, ear discharge, ear drainage, ear pain, ear ringing, eye pain, eye redness, hearing loss, mouth pain, mouth swelling, nasal discharge, nose bleeding, nose congestion, nose pain, photophobia, tearing, throat pain, throat swelling, voice changes, others Respiratory: denies: cough, hemoptysis, orthopnea, SOB at rest, shortness of breath, SOB with excertion, stridor, wheezing, others Cardiovascular: denies: chest pain, dizzy spells, diaphoresis, Dyspnea on exertion, edema, irregular heart beat, left arm pain, lightheadedness, palpitations, PND, syncope, others Gastrointestinal: denies: abdomen distended, abdominal pain, blood streaked bowels, constipated, diarrhea, dysphagia, difficulty swallowing, hematemesis, melena, nausea, poor appetite, poor fluid intake, rectal bleeding, rectal pain, vomiting, others Genitourinary: denies: burning, dysuria, flank pain, frequency, hematuria, incontinence, penile discharge, penile sore, pain, testicle pain, testicle swelling, urgency, others Neurological: denies: dizziness, fainting, headache, left sided numbness, left sided weakness, numbness, paresthesia, pre-existing deficit, right sided numbness, right sided weakness, seizure, speech problems, tingling, tremors, weakness, others Musculoskeletal: denies: back pain, gout, joint pain, joint swelling, muscle pain, muscle stiffness, neck pain, others Integumetry: reports: others ( STATED IN HPI) Allergic/Immunocompromised: denies: Difficulty Healing, Frequent Infections, Hives, Itching, others Hematologic/Lymphatic: denies: anemia, blood clots, easy bleeding, easy bruising, swollen glands, others Endocrine: denies: excessive hunger, excessive sweating, excessive thirst, excessive urination, flushing, intolerance to cold, intolerance to heat, unexplained weight gain, unexplained weight loss, others Psychiatric: denies: anxiety, bipolar disorder, depression, hopeless, panic disorder, schizophrenia, sleepless, suicidal, others Physical Exam General Appearance: No Apparent Distress HEENT: PERRL/EOMI Neck: Full Range of Motion, Non-Tender, Normal Respiratory: Chest Non-Tender, Lungs Clear, No Accessory Muscle Use, No Respiratory Distress, Normal Breath Sounds Cardiovascular: No Murmur, No Gallop, Regular Rate/Rhythm Breast Exam: Deferred Gastrointestinal: NOT DONE Genitalia: Deferred Pelvic: Deferred Rectal: Deferred Extremities: Normal capillary refill, Normal range of motion Neurologic: Alert, No Motor Deficits, Normal Affect, Normal Mood, No Sensory Deficits Cerebellar Function: Normal Reflexes: Normal Skin: Dry, Warm, Other (2 CM LACERATION NOTED TO RIGHT 1ST FINGER. SLIGHT TTP/SWELLING/ERYTHEMA LOCALIZED TO WOUND EDGES. NO FOREIGN BODY/NAILBED INJURY NOTED. PATIENT ABLE TO FULLY MOVE RIGHT THUMB. PULSES INTACT) Peripheral Pulses: 2+ Radial (R), 2+ Radial (L), 2+ Brachial (R), 2+ Brachial (L) Lymphatic: No Adenopathy Was a procedure done? Was a procedure done?: Yes Sedation Sedation?: No Laceration Repair : Location RIGHT 1ST FINGER Length 2 CM Anesthetic: Lidocaine (1%), Without epi Laceration Repair Prep: Saline (AND PEROXIDE), by Irrigation (WITHOUT ANY SIGNS OF FOREIGN BODY ) Laceration Repair Wound Comple: epidermis/dermis repair Laceration Repair: Number of sutures (2 SUTURES PLACED), Size (4-0), Nylon, Simple Informed consent obtained: Yes Risks, benefits, and alternati: Yes Differential diagnosis Generic Laceration: Fracture, Retained Foriegn Body, Neurovascular Injury X-Ray, Labs, Meds, VS Vital Signs Date Time Temp Pulse Resp B/P (MAP) Pulse Ox O2 Delivery O2 Flow Rate FiO2 11/04/24 21:59 98.0 89 14 151/92 (111) 97 TDAP 0.5 ML IM ORDERED WOUND CARE/CLEANING DISCUSSED AND ADVISED ADVISED TO FOLLOW UP IN TWO DAYS FOR WOUND CHECK ADVISED TO FOLLOW UP IN 10-14 DAYS FOR REMOVAL OF SUTURES ADVISED TO FOLLOW UP WITH PCP IN 1-2 DAYS PATIENT VERBALIZED UNDERSTANDING AND AGREEABLE WITH CURRENT PLAN OF CARE ADVISED TO RETURN TO ER IMMEDIATELY IF SYMPTOMS WORSEN Time of 1ST Reevaluation: 22:20 Reevaluation 1ST: N/A Patient Education/Counseling: Diagnosis, Treatment, Prognosis, Need For Follow Up Family Education/Counseling: No Family Present Departure 1 Departure Time of Disposition: 22:42 Impression: Primary Impression: Laceration of thumb, right Qualified Codes: S61.011A - Laceration without foreign body of right thumb without damage to nail, initial encounter Disposition: HOME / SELF CARE / HOMELESS Condition: Stable e-Prescriptions Cephalexin Monohydrate (Cephalexin) 500 Mg Cap 1 CAP PO BID for 7 Days, #14 CAP 0 Refills Prov: JENIFER LEWIS 11/04/24 Acetaminophen (Acetaminophen) 500 Mg Tab 500 MG PO Q4HPRN, #30 TAB 0 Refills Prov: JENIFER LEWIS 11/04/24 Discharged With: Self Critical Care Note Critical Care Time?: No Stability Stability form required: No Heart Score Heart Score: Heart Score Response (Comments) Value History N/A 0 EKG N/A 0 Age N/A 0 Risk Factors N/A 0 Troponin N/A 0 Total 0 JENIFER LEWIS Nov 04, 2024 22:47
[2024-11-04] MEDS: TETANUS-DIPTH-ACEL PERTUSSIS 0.5ML SYR Tdap IM ONE (23:01)
== END 2024-11-04 23:03 | disposition home or self-care (01) ==
LOC: ER 21:17
DX: S61.011A Laceration without foreign body of right thumb without damage to nail, initial encounter (principal); I10 Essential (primary) hypertension; E11.9 Type 2 diabetes mellitus without complications; E78.5 Hyperlipidemia, unspecified; D64.9 Anemia, unspecified; I25.10 Atherosclerotic heart disease of native coronary artery without angina pectoris; Z79.84 Long term (current) use of oral hypoglycemic drugs; Z79.899 Other long term (current) drug therapy; Z90.49 Acquired absence of other specified parts of digestive tract; Z98.890 Other specified postprocedural states; W25.XXXA Contact with sharp glass, initial encounter; Y93.89 Activity, other specified; Y92.89 Other specified places as the place of occurrence of the external cause; Y99.8 Other external cause status
CPT/HCPCS: 12001; 90471; 90715

== ENCOUNTER 2025-03-18 08:23 | Outpatient (CLI) | payer OTHER ==
[~2025-03-18 08:23] MED LIST changes: +ACET500T58 PO; +CEPH500C PO
[2025-03-18 08:38] LABS: Urine Bacteria None Seen /hpf (None Seen)
[2025-03-18 08:59] LABS: Basophils # (auto) 0.1 10 ^3/uL (0-0.2); Eosinophils # (auto) 0.3 10 ^3/uL (0-0.8); Eosinophils % (auto) 3.5 % (0.0-7.0); Hematocrit 46.7 % (41.0-53.0); Hemoglobin 16.1 g/dL (13.5-17.5); Lymphocytes # (auto) 3.2 10 ^3/uL (0.4-5.4); Lymphocytes % (auto) 38.2 % (10.0-50.0); Mean Corpuscular Hemoglobin 32.9 pg (28.0-32.0); Mean Corpuscular Hgb Conc. 34.4 g/dL (32.0-36.0); Mean Corpuscular Volume 95.5 fL (80.0-100.0); Monocytes # (auto) 1.2 10 ^3/uL (0-1.3); Monocytes % (auto) 13.9 % (0.0-12.0); Neutrophils # (auto) 3.7 10 ^3/uL (1.6-8.6); Neutrophils % (auto) 43.4 % (37.0-80.0); Nucleated Red Blood Cells % 0.2 %; Platelet Count (auto) 262 10^3/uL (140-450); Red Blood Cells 4.89 10^6/uL (4.5-5.90); Red Cell Distribution Width 13.6 % (11.8-14.3); White Blood Cell 8.5 10^3/uL (4.4-10.8)
[2025-03-18 09:20] LABS: Urine Blood Negative /uL (Negative); Urine Clarity Clear (Clear); Urine Color Light-Yellow (Yellow); Urine Protein, UAD Negative (Negative); Urine Specific Gravity 1.037 (1.001-1.035); Urine Squamous Epithelial Cell None Seen /hpf (<5); Urine Urobilinogen Normal (Negative)
[2025-03-18 09:34] LABS: Alanine Aminotransferase 20 U/L (7-40); Albumin 4.4 g/dL (3.2-4.8); Alkaline Phosphatase 103 U/L (46-116); Anion Gap 8 (5-15); Aspartate Aminotransferase 13 U/L (<34); BUN/Creatinine Ratio 13.3 (10.0-20.0); Bilirubin, Total 0.6 mg/dL (0.2-1.0); Blood Urea Nitrogen 17 mg/dL (9-23); Calcium 10.2 mg/dL (8.7-10.4); Carbon Dioxide 28 mmol/L (20-31); Chloride 106 mmol/L (98-107); Cholesterol 113 mg/dL (< 200); LDL Cholesterol 58 mg/dL (< 100); Potassium 4.4 mmol/L (3.5-5.1); Sodium 142 mmol/L (136-145); Total Protein 7.2 g/dL (5.7-8.2)
[2025-03-18 10:17] LABS: Glucose 164 mg/dL (74-106); HDL Cholesterol 36 mg/dL (40-59); Triglycerides 155 mg/dL (< 150)
== END 2025-03-18 17:00 | disposition home or self-care (01) ==
LOC: LAB 08:23
PROVIDERS: ATTEND Nurse Practitioner Family
DX: I12.9 Hypertensive chronic kidney disease with stage 1 through stage 4 chronic kidney disease, or unspecified chronic kidney disease (principal); E11.65 Type 2 diabetes mellitus with hyperglycemia; E11.22 Type 2 diabetes mellitus with diabetic chronic kidney disease; N18.2 Chronic kidney disease, stage 2 (mild); N52.9 Male erectile dysfunction, unspecified; E03.9 Hypothyroidism, unspecified; I73.9 Peripheral vascular disease, unspecified; Z79.899 Other long term (current) drug therapy
CPT/HCPCS: 36415; 80053; 80061; 81001; 82043; 83036; 84153; 84443; 85025